=== PATIENT | female | born 1995 | race Caucasian/White ===

== ENCOUNTER → 2020-01-14 | Outpatient (CLI) | payer BC ==
[2020-01-14 13:00] LABS: BASO # 0.1 10^3/uL (0.0-0.2); BASO % 0.7 % (0.0-1.0); EOS # 0.3 10^3/uL (0.0-0.5); EOS % 2.5 % (0.0-3.0); HEMATOCRIT 42.2 % (36.0-47.0); HEMOGLOBIN 13.5 g/dl (12.0-15.5); LYMPH # 2.6 10^3/uL (1.5-5.0); LYMPH % 21.5 % (24.0-44.0); MEAN CORPUSCULAR HEMOGLOBIN 28.1 pg (27.0-33.0); MEAN CORPUSCULAR VOLUME 87.9 fl (80.0-96.0); MONO # 0.6 10^3/uL (0.0-0.8); MONO % 5.1 % (0.0-5.0); NEUTROPHILS # 8.3 10^3/uL (1.5-8.5); NEUTROPHILS % 69.9 % (36.0-66.0); PLATELET COUNT, AUTOMATED 307 10^3/uL (150-450); WHITE BLOOD COUNT 11.9 10^3/uL (4.0-10.0)
[2020-01-14 14:10] LABS: ALBUMIN 4.2 GM/DL (3.2-5.2); ALT/SGPT 29 U/L (12-78); BILIRUBIN,TOTAL 0.3 MG/DL (0.2-1.0); BLOOD UREA NITROGEN 12 MG/DL (7-18); CALCIUM LEVEL 9.1 MG/DL (8.5-10.1); CARBON DIOXIDE LEVEL 30 MEQ/L (21-32); CHLORIDE LEVEL 105 MEQ/L (98-107); CREATININE FOR GFR 0.66 MG/DL (0.55-1.30); GLOMERULAR FILTRATION RATE > 60.0 (>60); GLUCOSE, FASTING 68 MG/DL (70-100); LIPASE 55 U/L (73-393); POTASSIUM SERUM 4.6 MEQ/L (3.5-5.1); SODIUM LEVEL 139 MEQ/L (136-145); TOTAL PROTEIN 7.1 GM/DL (6.4-8.2)
== END ==
LOC: M WUC 10:06
PROVIDERS: ATTEND Physician Assistant
DX: R10.84 Generalized abdominal pain (principal)

== ENCOUNTER → 2020-09-02 | Outpatient (REF) | payer OTHER | LOC: M LAB REF 15:14 | PROVIDERS: ATTEND Family Medicine | DX: T74.21XA Adult sexual abuse, confirmed, initial encounter (principal) ==

== ENCOUNTER 2020-10-27 08:02 | Emergency (ER) | payer OTHER ==
[~2020-10-27] VITALS: Ht 170.2 cm; Wt 109.3 kg
[2020-10-27] MEDS ORDERED: ATIV1TAB10 (08:09)
[2020-10-27] MEDS ORDERED: LAMO100T3 (08:09)
[2020-10-27] MEDS ORDERED: TRAZ-257 (08:09)
[2020-10-27] MEDS ORDERED: VIIB20TA (08:09)
[2020-10-27 09:24] LABS: BASO # 0.1 10^3/uL (0.0-0.2); BASO % 0.7 % (0.0-1.0); EOS # 0.4 10^3/uL (0.0-0.5); EOS % 3.4 % (0.0-3.0); HEMOGLOBIN 12.7 g/dl (12.0-15.5); LYMPH # 1.7 10^3/uL (1.5-5.0); LYMPH % 16.8 % (24.0-44.0); MEAN CORPUSCULAR HEMOGLOBIN 27.5 pg (27.0-33.0); MEAN CORPUSCULAR HGB CONC 31.8 g/dl (32.0-36.5); MEAN CORPUSCULAR VOLUME 86.8 fl (80.0-96.0); MONO # 0.7 10^3/uL (0.0-0.8); MONO % 6.7 % (2.0-8.0); NEUTROPHILS # 7.4 10^3/uL (1.5-8.5); NEUTROPHILS % 71.7 % (36.0-66.0); PLATELET COUNT, AUTOMATED 297 10^3/uL (150-450); RED BLOOD COUNT 4.61 10^6/uL (4.00-5.40); WHITE BLOOD COUNT 10.4 10^3/uL (4.0-10.0)
--- NOTE | 2020-10-27 09:40 | REP ---
INDICATION: pelvic pain COMPARISON: None. TECHNIQUE: Transabdominal pelvic ultrasound followed by transvaginal examination for better evaluation of the endometrium and adnexa with color Doppler evaluation of the ovaries. FINDINGS: Bladder is unremarkable and measures 5.4 x 3.6 x 2.9 cm. Normal anteverted uterus measures 8.0 x 3.9 x 4.5 cm. The endometrial complex measures 9 mm thickness. No discrete uterine or endometrial abnormalities are appreciated. Bilateral ovaries are normal in vascularity without evidence for torsion. Right ovary measures 3.8 x 3.1 x 2.1 cm and includes multiple follicles along with 1.5 x 1.7 x 1.9 cm complex presumed involuting hemorrhagic cyst and 1.6 x 0.8 x 1.4 cm dominant follicle; R I = 0.50. Left ovary measures 2.4 x 1.9 x 1.3; R I = 0.69. No obvious pelvic fluid. IMPRESSION: Normal uterus and left ovary. Presumed physiologic changes to the right ovary. <Electronically signed by Jersey Negrete > 10/27/20 0936
[2020-10-27 09:47] LABS: ALBUMIN 3.9 GM/DL (3.2-5.2); ALT/SGPT 25 U/L (12-78); BILIRUBIN,DIRECT < 0.1 MG/DL (0.0-0.2); BILIRUBIN,TOTAL 0.3 MG/DL (0.2-1.0); LIPASE 47 U/L (73-393); TOTAL PROTEIN 7.3 GM/DL (6.4-8.2)
[2020-10-27] MEDS ORDERED: FLUCONAZOLE 50MG TABLET PO ONE (11:15)
[2020-10-27] MEDS ORDERED: FLAG500T PO (11:22)
[2020-10-27 11:41] VITALS: BP 136/77
[2020-10-27 12:53] LABS: CHLAMYDIA DNA AMPLIFICATION NEGATIVE (NEGATIVE); GC DNA AMPLIFICATION NEGATIVE (NEGATIVE)
== END 2020-10-27 11:43 | disposition home or self-care (01) ==
LOC: M ED 08:02
DX: N83.201 Unspecified ovarian cyst, right side (principal); N76.0 Acute vaginitis; B37.3 Candidiasis of vulva and vagina; Z88.0 Allergy status to penicillin; F12.20 Cannabis dependence, uncomplicated

== ENCOUNTER → 2020-12-28 | Outpatient (CLI) | payer OTHER ==
[~2020-12-28] MED LIST: ATIV1TAB10; FLAG500T PO; LAMO100T3; TRAZ-257; VIIB20TA
--- NOTE | 2020-12-28 10:00 | REP ---
INDICATION: LUMBAGO WITH SCIATICA. COMPARISON: None TECHNIQUE: Multiple views of the lumbosacral spine. Eight views with flexion and extension bending views FINDINGS: Multiple views of the lumbosacral spine show no acute fracture, dislocation, or subluxation. The intervertebral disc spaces are symmetric and well maintained. There is no spondylolysis or spondylolisthesis. The pedicles are intact bilaterally and there is no destructive osseous lesion. Flexion and extension bending views show no evidence of instability IMPRESSION: Essentially unremarkable lumbosacral spine series. <Electronically signed by Mj Powell > 12/28/20 0954
== END ==
LOC: M WUC 09:17
PROVIDERS: ATTEND Physician Assistant
DX: M54.41 Lumbago with sciatica, right side (principal)

== ENCOUNTER 2021-01-16 05:54 | Emergency (ER) | payer OTHER ==
[~2021-01-16] VITALS: Ht 162.6 cm; Wt 100.0 kg
[2021-01-16 05:55] VITALS: BP 139/90
[2021-01-16] MEDS ORDERED: TRI-1TAB PO (06:08)
[2021-01-16] MEDS ORDERED: ATOM40CA9 PO (06:08)
[2021-01-16] MEDS ORDERED: VIIB40TA PO (06:08)
[2021-01-16] MEDS ORDERED: CYCL-707 PO (06:08)
[2021-01-16] MEDS ORDERED: PRED20TA PO (06:08)
[2021-01-16] MEDS ORDERED: TIZA4CAP PO (06:08)
[2021-01-16] MEDS ORDERED: NEUR300C PO (07:20)
== END 2021-01-16 07:42 | disposition home or self-care (01) ==
LOC: M ED 05:54
DX: M54.41 Lumbago with sciatica, right side (principal); F33.9 Major depressive disorder, recurrent, unspecified; F41.9 Anxiety disorder, unspecified; Z98.84 Bariatric surgery status; Z79.899 Other long term (current) drug therapy; Z79.3 Long term (current) use of hormonal contraceptives; Z88.0 Allergy status to penicillin; F12.20 Cannabis dependence, uncomplicated

== ENCOUNTER → 2021-01-24 | Outpatient (CLI) | payer OTHER ==
[~2021-01-24] MED LIST changes: +ATOM40CA9 PO; +CYCL-707 PO; +GASTROGRAFIN SOLUTION 30ML (Q9963) As Ordered ONE; +ISOVUE-370 76% 100ML VIAL As Ordered ONE; +NEUR300C PO; +PRED20TA PO; +TIZA4CAP PO; +TRI-1TAB PO; +VIIB40TA PO
--- NOTE | 2021-01-24 11:24 | REP ---
INDICATION: EPIGASTRIC PAIN, GASTRIC SLEEVE, VOMITING. COMPARISON: None. TECHNIQUE: Oral Gastrografin mixture per our bowel contrast protocol and bolus 100 mL Isovue 370 with scanning through the abdomen and pelvis and both coronal and sagittal reconstructions provided FINDINGS: CT abdomen: The lung bases are clear. The heart is not enlarged. There is no pericardial thickening or effusion. Surgical staple lines in the stomach in the left upper quadrant. Oral contrast within the stomach and into small bowel loops reaching the right colon. No definite hiatal hernia. Liver mildly enlarged up to 19 cm vertical diameter midclavicular line. No focal hepatic mass or biliary dilatation. There is no adjacent ascites. The visualized gallbladder is without calcified stone or mass. Spleen has maximum diameter of 12.5 cm, not enlarged without focal lesion. Pancreas without ductal dilatation or calcification the common duct. No inflammatory changes in the peripancreatic fat, pancreatic mass or adjacent fluid collection. Abdominal aorta without aneurysm. There is no periaortic, other retroperitoneal or mesenteric pathologic sized lymphadenopathy. Contrast filled small bowel loops without dilatation, wall thickening air-fluid levels or adjacent mesenteric edema. Lung window review shows no sign of perforation or free air. Colon shows stool and gas scattered in the right knee and transverse portions. The left colon is collapsed without signs of colitis or diverticulitis anywhere in the abdomen. The bone windows show spine and visualized ribs intact. CT pelvis: The bony sacrum, pelvis and hips are without acute finding. There are a few bone islands in the right hip as a benign finding. Distal left colon, sigmoid and rectum without acute finding. Small bowel loops in the pelvis were unremarkable. Few scattered mesenteric nodes adjacent to the right colon and cecum but no inflammatory changes in the fat. Appendix is seen and unremarkable. Uterus anteverted not enlarged. Left ovary slightly larger than the right. No pelvic free fluid or adenopathy. No ventral or inguinal hernia. IMPRESSION: 1. Status post gastric surgery, by history a gastric sleeve operation and without sign of obstruction. The anastomotic sutures are noted and contrast is seen throughout nondilated small bowel loops into the right colon. No abnormal distension of the stomach. 2. There is no ascites, pathologic sized adenopathy, colitis, diverticulitis, appendicitis or other acute finding. The solid organs in the upper abdomen showed only mild hepatomegaly with fatty infiltration. 3. Uterus anteverted, tilted towards the right with asymmetrically slightly larger right than the left ovary no gross mass. No abdominal or pelvic ascites, perforation or free air. <Electronically signed by Henok Yanez > 01/24/21 2437
== END ==
LOC: M RAD 09:10
PROVIDERS: ATTEND Physician Assistant
DX: R10.13 Epigastric pain (principal); Z98.84 Bariatric surgery status; R16.0 Hepatomegaly, not elsewhere classified; K76.0 Fatty (change of) liver, not elsewhere classified; N85.4 Malposition of uterus
CPT/HCPCS: 74177; Q9963; Q9967

== ENCOUNTER → 2021-01-30 | Outpatient (CLI) | payer OTHER ==
[~2021-01-30] MED LIST changes: -GASTROGRAFIN SOLUTION 30ML (Q9963) As Ordered ONE; -ISOVUE-370 76% 100ML VIAL As Ordered ONE
== END ==
LOC: M LABSMTC 09:01
PROVIDERS: ATTEND Orthopaedic Surgery
DX: Z01.812 Encounter for preprocedural laboratory examination (principal); M51.36 Other intervertebral disc degeneration, lumbar region; M21.371 Foot drop, right foot

== ENCOUNTER 2021-04-24 12:30 | Emergency (ER) | payer OTHER ==
[~2021-04-24] VITALS: Ht 170.2 cm; Wt 97.5 kg
[2021-04-24 12:30] VITALS: BP 137/83
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
--- OUTSIDE RECORDS SUMMARY | 2021-04-24 12:38 | CCD | Continuity of Care Document ---
Author Shahana Miller Organization [place] [address] Phone [phone] Care Team Providers Care Director Of Software Development Name Role Phone Dea Thomas D.O. AUTM [phone] Deejay Kumar AUTM Physical Therapy, [facility] AUTM [phone] [facility] AUTM [phone] Esthela Herrera DO AUTM [phone] Problems Active Problems Provider Date Pure hypercholesterolemia [...] SIG Qnty Indications Ordering Provide r Date Lamictal 200mg Tablets F31.9 Dea Thomas D.O. 04/12/2021 Ketoconazole 2% Cream apply to flakey rash on right breast twice daily until rash resolves (usually 4 weeks) 60gm B35.4 Lio AshOValery 02/27/2021 Tizanidine HCL 4mg Capsules take one capsule by mouth every 8 hours as needed for muscle spasm 45caps M5 4.5 Lio AshOValery 12/29/2020 Tramadol HCL 50mg Tablets take one tablet by mouth every 6 hours for pain 28tabs M54.5 Lio GriffithsOValery 12/29/2020 Dxa-Jn-Djynrzvgb 0.1 8/0.215/0.25 mg-25 mcg Tablets 1 by mouth every day 84tabs Z01.411 Lio AshOValery 09/02/2020 Dicyclomine HCL 10mg Capsules take one tablet every 8 hours by mouth as needed for diarrhea. 60caps K58.0 Lio AshOValery 08/10/2020 Viibryd 20mg Tablets 2 by mouth once daily 60tabs Lio AshO. Trazodone HCL 100mg Tablets take 1 by mouth every night at bedtime 90tabs Lio HilliardO. Guanfacine HCL 2mg Tablets Unknown Lorazepam 1mg Tablets take 1 tablet by mouth daily Unknown History Medications Ativan 0.5mg Tablets 1 tab by mouth 15 minutes prior to procedure and repeat 1 time during day if needed 2tabs Lio AshO. 02/02/2021 - 02/27/2021 Prednisone 20mg Tablets take two tablets once a day by mouth for five days 10tabs M54.5 Lio RandleOValery 12/29/2020 - 01/24/2021 Lamotrigine Starter Kit-[place] 42X 25 mg & 7 X 100 mg Kit Take as Directed; Maximum Daily Dose Is 100 MG 49units F 31.9 Lio AshOValery 10/17/2020 - 04/12/2021 Lamictal 100mg Tablets Take one tablet by mouth once a day 90tabs F31.9 Dea Thomas D.O. 03/2021 - 10/17/2020 Immunizations Description No Information Available Vital Signs Date Vital Result Comment 04/12/2021 2:01pm BP Systolic 118 mmHg BP Diastolic 70 mmHg Height 66.7 inches 5'6.70" Weight 216.38 lb BMI (Body Mass Index) 34.2 kg/m2 Heart Rate 90 /min Respiratory Rate 18 /min Body Temperature 98.9 F O2 % BldC Oximetry 98 % [place] Body Weight 130 lb 02/27/2021 9:42am BP Systolic 114 mmHg BP Diastolic 72 mmHg Height 66.7 inches 5'6.70" Weight 224.38 lb BMI (Body Mass Index) 35.5 kg/m2 Heart Rate 101 /min Respiratory Rate 18 /min Body Temperature 98.5 F O2 % BldC Oximetry 99 % [place] Body Weight 130 lb Results Test Acquired Date Facility Test Result H/L Range Note Coronavirus 2019 Nasopharygeal 01/30/2021 [facility] Outpa tient Testing (Registration) [address] [place] [address] [phone] Coronavirus 2019 Nasopharygeal ASSAY INFORMATIO <SEE N OTE> 1 Wet [place] Trichomonas 10/27/2020 [facility] Outpatient Paige ting (Registration) [address] [place] [address] [phone] Wet Prep Reference Interv <SEE NOTE> 2 Laboratory test finding 10/27/2020 [facility] Outpatient T esting (Registration) [address] [place], [place] [address] [phone] iSTAT B-hCG < 5.0 Normal 3 Istat Chem8+ Panel 10/27/2020 [facility] Outpatient Testi ng (Registration) [address] [place], [place] [address] [phone] iSTAT HCT 41.0 % Normal 38.0-51.0 iSTAT Glucose 94 mg/dL Normal 70-105 iSTAT Sodium 138 mEq/L Normal 136-145 iSTAT Potassium 4.4 mEq/L Normal 3.5-5.1 iSTAT CA++ 4.8 mg/dL Normal 4.5-5.3 iSTAT Chloride 101 mEq/L Normal 98-109 iSTAT Co2 28.0 MM/L High 23.0-27.0 iSTAT BUN 13 mg/dL Normal 8-26 iSTAT Creatinine 0.7 mg/dL Normal 0.6-1.3 CBC With Differential 10/27/2020 [facility] Outpatient Paige ting (Registration) [address] [place] [address] [phone] White Blood Count 10.4 10 High 4.0-10.0 [...] 36.0-66.0 Lymph % 16.8 % Low 24.0-44.0 [place] % 6.7 % Normal 2.0-8.0 Eos % 3.4 % High 0.0-3.0 Baso % 0.7 % Normal 0.0-1.0 Immature Granulocyte % 0.7 % Normal 0-3.0 Nucleated Red Blood Cell % 0.0 % Normal 0-0 Neutrophils # 7.4 10 Normal 1.5-8.5 Lymph # 1.7 10 Normal 1.5-5.0 Sawyer # 0.7 10 Normal 0.0-0.8 Eos # 0.4 10 Normal 0.0-0.5 Baso # 0.1 10 Normal 0.0-0.2 Ua W/ Reflex To Culture 10/27/2020 [facility] Outpatient T esting (Registration) [address] [place] [address] [phone] Appearance, Urine RFX CLOUDY High Clear Color, Urine RFX YELLOW Normal Yellow PH,Urine RFX 7.0 units Normal 5.0-9.0 Specific [place] Ur Auto RFX 1.026 Normal 1.002-1.035 Protein, [...] Urine Auto RFX 0 /LPF Normal 0-1 Liver Profile 10/27/2020 [facility] Outpatient Testi ng (Registration) [address] [place], [place] [address] [phone] Ast/Sgot 12 U/L Normal 7-37 Alt/SGPT 25 U/L Normal 12-78 Alkaline Phosphatase 79 U/L Normal 45-117 Bilirubin,Total 0.3 mg/dL Normal 0.2-1.0 Bilirubin,Direct < 0.1 mg/dL Normal 0.0-0.2 Total Protein 7.3 GM/DL Normal 6.4-8.2 Albumin 3.9 GM/DL Normal 3.2-5.2 Albumin/Globulin Ratio 1.1 Low 1.2-2.2 Laboratory test finding 10/27/2020 [facility] Outpatient T esting (Registration) [address] [place] [address] [phone] Lipase 47 U/L Low 73-393 Chlamydia, GC & Trich Amp 10/27/2020 [facility] Outpatient Testing (Registration) [address] [place] [address] [phone] Chlamydia Dna Amplification NEGATIVE Normal Nega tive 4 GC Dna Amplification NEGATIVE Normal Negative 5 Trichomonas vaginalis (Amp) NOT DETECTED Normal Negative 6 1 ASSAY INFORMATION: Real Time RT-PCR NOTE: The COVID-19 assay has been cleared by the U.S. Food and Drug Administration under the Emergency Use Authorization (EUA). [facility] and [employer] are designated as high complexity laboratories by the Clinical Laboratory Improvement Amendments of 1988(CLIA) and are qualified to perform this test. Not Detected 2 Reference Interval: Negative for Clue Cells, Trichomonas vaginalis or Yeast like organisms. WET PREP RESULT FEW EPITHELIAL CELLS PRESENT FEW WBC MODERATE RBC FEW LONG RODS PRESENT FEW SHORT RODS PRESENT FEW CLUE CELLS PRESENT 3 QUANTITATIVE RESULT QUALITATIVE INTERPRETATION <5.0 IU/L NEGATIVE 5.0 - 25.0 IU/L INDETER MINATE >25.0 IU/L POSITIVE 4 A negative test result does not [...] be below the sensitivity of the test. 6 A negative test result does not exclude the possibility of infection because test results may be affected by improper specimen collection, technical error, sample mix-up, or because the number of organisms in the sample is below the limit of detection of the test. Procedures Date Code Description Status 04/12/2021 31463 Office/Outpatient Established Lo w MDM 20-29 Min Completed 02/27/2021 89587 Office/Outpatient Established Lo w MDM 20-29 Min Completed 01/24/2021 92944 Office/Outpatient Established Mo d MDM 30-39 Min Completed 12/29/2020 06738 Office/Outpatient Established Lo w MDM 20-29 Min Completed 10/14/2020 78028 Office/Outpatient Established Mo d MDM 30-39 Min Completed Medical Devices Description No Information Available Encounters Type Date Location Provider Dx Diagnosis Office Visit 04/12/2021 1:45p Family [facility] WILLIAM Morales L98.7 Excessive and redundant skin and subcutaneous tissue Z98.84 Bariatric surgery status Office Visit 02/27/2021 9:40a Family [facility] Dea Thomas D.O. B35.4 Tinea corporis Office Visit 01/24/2021 8:00a [facility] WILLIAM Morales Z98.84 Bariatric surgery status R11.10 Vomiting, unspecified R10.13 Epigastric pain Office Visit 12/29/2020 2:40p [facility] WILLIAM Morales M54.5 Low back pain Office Visit 10/14/2020 8:00a [facility] WILLIAM Morales F31.9 Bipolar disorder, unspecifie d Z98.84 Bariatric surgery status E28.2 Polycystic ovarian syndrome F43.10 Post-traumatic stress disord er, unspecified Assessments Date Code Description Provider 04/12/2021 L98.7 Excessive and redundant skin and subcutaneous tissue WILLIAM Morales 04/12/2021 Z98.84 Bariatric surgery status WILLIAM Morales 02/27/2021 B35.4 Tinea corporis Dea villeda D.O. 01/24/2021 Z98.84 Bariatric surgery status WILLIAM Morales 01/24/2021 R11.10 Vomiting, unspecified WILLIAM Martinez 01/24/2021 R10.13 Epigastric pain WILLIAM Morales 12/29/2020 M54.5 Low back pain WILLIAM Morales 10/14/2020 F31.9 Bipolar disorder, unspecified [place] WILLIAM Virk 10/14/2020 Z98.84 Bariatric surgery status WILLIAM Morales 10/14/2020 E28.2 Polycystic ovarian syndrome Mark WILLIAM Verdugo 10/14/2020 F43.10 Post-traumatic stress disorder, unspecified WILLIAM Morales Plan of Treatment Future Appointment(s):* 09/06/2021 9:40 am - Dea Thomas D.O. at [facility] 04/12/2021 - WILLIAM Morales* L98.7 Excessive and redundant skin and subcutaneous tissue* Comments:* Referral placed for Dr. Herrera to discuss a possible tummy tuck surgery. * Referral:* Esthela Herrera DO, * Z98.84 Bariatric surgery status Functional Status Description No Information Available Mental Status Description No Information Available Referrals Refer to Reason for Referral Status Appt Date Esthela Herrera DO Shahana had a gastric bypass 12/17/18 and has excessive redundant abdominal fold/skin which she is interested in getting removed. She has diastasis recti muscle dysfunction. Sent [address] [place] [address] [phone] Kamaljit Tan MD Shahana had a gastric sleeve placed while living in [place] in December 2018. She recently developed problems with vomiting and inability to tolerate solid food intake. [facility] 809 [phone] [facility] Shahana for the past three w eeks has been having lower back and pelvis pain with pain down both LE without weakness or trauma to affected area. MRI several years ago showed bulging discs. Recent xray was normal. please evaluate for lower back pain which radiates down LE, right worse then left. [facility] [address] [place], [place] [address] [phone]
--- OUTSIDE RECORDS SUMMARY | 2021-04-24 12:38 | CCD | Continuity of Care Document ---
Author Author Shahana CHADWICK MD Organization Unknown Address [address] [address] Phone [phone] Care Team Providers Care Investment Counselor Name Role Phone Kermit Costa MD AUTM Unavailable Denis Ray AUTM [phone] Problems Description No Information Available Social History Type Date Description Comments Sex Unknown Allergies, Adverse Reactions, Alerts Active Allergies Criticality Reaction | Severity Comments Date Penicillin V Unable to assess criticality 01/20/2021 Medications Active Medications SIG Qnty Indications Ordering Provide r Date Oxycodone-Acetaminophen 5-325mg Ta blets 1- 2 tabs po q4-6h prn / post surgical pain (please do not fill until 02/03) 20tabs Adria Chadwick MD 01/25/2021 Mupirocin 2% Ointment apply a pea sized amount to the nasal passages 3 times a day for 5 days prior to surgery 22gm Adria Chadwick MD 01/20/2021 Hibiclens 4% Liquid use in shower once daily for 5 days before surgery 1units Adria Chadwick MD 01/20/2021 Tizanidine HCL 4mg Tablets 1 by mouth three times a day 90tabs Francis Proctor MD 01/16/2021 Gabapentin 300mg Capsules 1 tab po qhs for one week, then one tab po bid for one week then one tab po tid Unknown Immunizations Description No Information Available Vital Signs Date Vital Result Comment 02/16/2021 3:26pm Body Temperature 96.9 F 01/20/2021 2:44pm Body Temperature 97.3 F Height 67 inches 5'7" Weight 228.25 lb BMI (Body Mass Index) 35.7 kg/m2 Results Test Acquired Date Facility Test Result H/L Range Note Laboratory test finding 01/30/2021 [facility] [address] [place] [address] [phone] Coronavirus 2019 Nasopharygeal ASSAY INFORMATIO <SEE NOTE> 1 1 ASSAY INFORMATION: Real Time RT-PCR NOTE: The COVID-19 assay has been cleared by the U.S. Food and Drug Administration under the Emergency Use Authorization (EUA). [employer] [facility] [employer] are designated as high complexity laboratories by the Clinical Laboratory Improvement Amendments of 1988(CLIA) and are qualified to perform this test. Not Detected Procedures Date Code Description Status 02/03/2021 89081 Laminectomy One Interspace, Lumb ar Completed 02/03/2021 78381 Laminectomy One Interspace, Lumb ar Completed 01/20/2021 09705 Office/Outpatient Established Mo d MDM 30-39 Min Completed 01/16/2021 93871 Office/Outpatient New Moderate M DM 45-59 Minutes Completed Medical Devices Description No Information Available Encounters Type Date Location Provider Dx Diagnosis Office Visit 02/16/2021 3:30p Weldsandy Chadwick MD Z47.89 Encounter for other orthopedic aftercare Office Visit 01/20/2021 2:45p Weldsandy Chadwick MD M51.26 Other intervertebral disc displacement, lumbar region M48.061 Spinal stenosis, lumbar marva on without neurogenic austin M54.16 Radiculopathy, lumbar region Office Visit 01/16/2021 8:45a Weldsandy Umaña, P.A. M51.36 Other intervertebral disc degeneration, lumbar region M21.371 Foot drop, right foot Assessments Date Code Description Provider 04/11/2021 Z47.89 Encounter for other orthopedic a ftercare Adria Chadwick MD 02/16/2021 Z47.89 Encounter for other orthopedic a ftgracielaare Adria Chadwick MD 02/03/2021 M51.17 Intervertebral disc disorders with radiculopathy, lumbosacral region Denis Umaña, P.AValery 02/03/2021 M51.17 Intervertebral disc disorders with radiculopathy, lumbosacral region Adria Chadwick MD 01/20/2021 M51.26 Other intervertebral disc displa cement, lumbar region Adria Chadwick MD 01/20/2021 M48.061 Spinal stenosis, lum bar region without neurogenic claudication Adria Chadwick MD 01/20/2021 M54.16 Radiculopathy, lumbar region Bru dean Chadwick MD 01/16/2021 M51.36 Other intervertebral disc degene ration, lumbar region Denis Umaña, P.A. 01/16/2021 M21.371 Foot drop, right foot Denis Umaña, PJoselin. Plan of Treatment 04/11/2021 - Adria Chadwick MD* Z47.89 Encounter for other orthopedic aftercare * Follow up:* back recheck in 3 months with [facility] Functional Status Description No Information Available Mental Status Description No Information Available Referrals Refer to Dr Reason for Referral Status Appt Date Adria Chadwick MD SURGERY NO AUTH REQUIRED FOR LS-SPINE SURGERY ([id number]) TO SURGERY NT Created [address] [place] [address], [address] [place] [address] [phone] Denis Umaña PA MRI NO AUTH REQUIRED FOR MRI OF LUMBAR SPINE ([id number]) TO TRIAGE. DG Created [address] [place] [address] [phone] Denis Umaña PA PT BASED ON MED. [facility] TO PT DEPT. NT C reated [address] [place] [address] [phone]
--- OUTSIDE RECORDS SUMMARY | 2021-04-24 12:38 | CCD | Summary of Care ---
Author Author [facility] Organization [facility] Address Unknown Phone Unavailable Care Team Providers Care Culture Manager Name Role Phone PCP Unavailable Reason for Visit * Reason Comments ADHD Encounter Details Care Team Description Date Type Department Jacqui George NP [address] [place] [phone] ADHD (attention deficit hyperactivity di sorder), inattentive type (Primary Dx); Panic disorder 03/16/2021 [facility] Psychiatry [facility], [address] [address] Allergies Not on Filedocumented as of this encounter (statuses as of 03/20/2021) Medications End Date Status Medication Sig Dispensed Refills Start Date 03/31/2021 Active Prazosin HCl 1 MG Oral Take 1 30 capsule 0 Capsule capsule by 1 (MINIPRESS)Indications: mouth nightly Nightmare Active lamoTRIgine 100 MG Oral Take 100 mg 0 Tablet (LaMICtal) by mouth daily Active Vilazodone HCl 40 MG Oral Take 40 mg by 0 Tablet (VIIBRYD) mouth daily Active traZODone HCl 100 MG Oral Take 100 mg 0 Tablet (DESYREL) by mouth nightly 04/14/2021 Active guanFACINE HCl 1 MG Oral Take 1 tablet 30 tablet 0 Tablet by mouth 1 (TENEX)Indications: ADHD nightly (attention deficit hyperactivity disorder), inattentive type 03/30/2021 Active LORazepam 0.5 MG Oral Take 1 tablet 15 tablet 0 Tablet by mouth 1 (Ativan)Indications: daily as Panic disorder needed for Anxiety (panic attacks), Max Daily Dose: 0.5 mg 03/15/2021 Discontinued (Reorder) LORazepam 0.5 MG Oral Take 1 tablet 15 tablet 0 Tablet by mouth 1 (Ativan)Indications: daily as Panic disorder needed for Anxiety (panic attacks), Max Daily Dose: 0.5 mg 03/15/2021 Discontinued (Not effective) Atomoxetine HCl 40 MG Take 40 mg by 0 Oral Capsule (STRATTERA) mouth daily documented as of this encounter (statuses as of 03/20/2021) Active Problems Problem Noted Date Back injury 03/01/2021 documented as of this encounter (statuses as of 03/20/2021) Social History Date Tobacco Use Types Packs/Day Years Used Never Assessed Sex Assigned at Date Recorded Not on file documented as of this encounter Last Filed Vital Signs Not on filedocumented in this encounter Patient Instructions * Patient Instructions* Jacqui George NP - 03/15/2021 5:00 PM EDT Come back documented in this encounter Plan of Treatment Care Team Description Date Type Specialty Jacqui George NP [address] [place] [address] 03/29/2021 Telemedicine Psychiatry Health Maintenance Due Date Last Done Comments MMR Vaccines (1 of - 1997 Standard series) Varicella Vaccines (1 of 1997 2 - 2-dose childhood series) DTaP,Tdap,and Td Vaccines 12/17/2003 (1 - Tdap) HPV Vaccines (1 - 2-dose 12/17/2007 series) HIV Screening 2009 Chlamydia Screening 2012 Cervical Cancer Screening 2017 3 years Influenza Vaccine 04/07/2021 Pneumococcal Vaccine: 65+ 2061 Years (1 of - PPSV23) HIB Vaccines Aged Out No longer eligible based on patient's age to complete this topic Hepatitis A Vaccines Aged Out No longer eligibl e based on patient's age to complete this topic Hepatitis B Vaccines Aged Out No longer eligibl e based on patient's age to complete this topic IPV Vaccines Aged Out No longer eligible based on patient's age to complete this topic Pneumococcal Vaccine: Aged Out No longer eligib le based on patient's age to Pediatrics (0 to 5 Years) complete this topic and At-Risk Patients (6 to 64 Years) documented as of this encounter Results Not on filedocumented in this encounter Visit Diagnoses Diagnosis ADHD (attention deficit hyperactivity d isorder), inattentive type - Primary Attention deficit disorder without ment ion of hyperactivity Panic disorder Panic disorder without agoraphobia documented in this encounter
--- OUTSIDE RECORDS SUMMARY | 2021-04-24 12:38 | CCD | Summary of Care ---
Author Author [facility] Organization [facility] Address Unknown Phone Unavailable Care Team Providers Care Computer Support Specialist Instructor Name Role Phone PCP Unavailable Reason for Visit * Reason Comments Manic Behavior Encounter Details Care Team Description Date Type Department Jacqui George NP [address] [place] [address] Bipolar depression (Primary Dx); Panic disorder; Nightmare 03/02/2021 [facility] Psychiatry [facility], [facility]. [address] [place] [address] Allergies Not on Filedocumented as of this encounter (statuses as of 03/08/2021) Medications End Date Status Medication Sig Dispensed Refills Start Date 03/16/2021 Active LORazepam 0.5 MG Oral Take 1 tablet 15 tablet 0 Tablet by mouth 1 (Ativan)Indications: daily as Panic disorder needed for Anxiety (panic attacks), Max Daily Dose: 0.5 mg 03/31/2021 Active Prazosin HCl 1 MG Oral Take 1 30 capsule 0 Capsule capsule by 1 (MINIPRESS)Indications: mouth nightly Nightmare Active lamoTRIgine 100 MG Oral Take 100 mg 0 Tablet (LaMICtal) by mouth daily Active Vilazodone HCl 40 MG Oral Take 40 mg by 0 Tablet (VIIBRYD) mouth daily Active Atomoxetine HCl 40 MG Take 40 mg by 0 Oral Capsule (STRATTERA) mouth daily Active traZODone HCl 100 MG Oral Take 100 mg 0 Tablet (DESYREL) by mouth nightly documented as of this encounter (statuses as of 03/08/2021) Active Problems Problem Noted Date Back injury 03/01/2021 documented as of this encounter (statuses as of 03/08/2021) Social History Date Tobacco Use Types Packs/Day Years Used Never Assessed Sex Assigned at Date Recorded Not on file documented as of this encounter Last Filed Vital Signs Not on filedocumented in this encounter Patient Instructions * Patient Instructions* Jacqui George NP - 03/01/2021 1:30 PM EDT Come back documented in this encounter Plan of Treatment Care Team Description Date Type Specialty Jacqui George NP [address] [place] [phone] 03/15/2021 Telemedicine Psychiatry Health Maintenance Due Date Last [...] filedocumented in this encounter Visit Diagnoses Diagnosis Bipolar depression - Primary Bipolar I disorder, most recent episode (or current) depressed, unspecified Panic disorder Panic disorder without agoraphobia Nightmare Other dysfunctions of sleep stages or a rousal from sleep documented in this encounter
--- OUTSIDE RECORDS SUMMARY | 2021-04-24 12:38 | CCD | Continuity of Care Document ---
Author Author Shahana CHADWICK MD Organization Unknown Address [address] [address] Phone [phone] Care Team Providers Care Exchange Engineer Name Role Phone Kermit Costa MD AUTM Unavailable Denis Ray AUTM [phone] Problems Description No Information Available Social History Type Date Description Comments Sex Unknown Allergies and adverse reactions Active Allergies Criticality Reaction | Severity Comments [...] H/L Range Note Laboratory test finding 01/30/2021 [facility] [address] [place] [address] (802)- - Coronavirus 2019 Nasopharygeal ASSAY INFORMATIO <SEE NOTE> 1 1 ASSAY INFORMATION: Real Time RT-PCR NOTE: The COVID-19 assay has been cleared by the U.S. Food and Drug Administration under the Emergency Use Authorization (EUA). [employer] and [employer] are designated as high complexity laboratories by the Clinical Laboratory Improvement Amendments of 1988(CLIA) and are qualified to perform this test. Not Detected Procedures Date Code Description Status 02/03/2021 23219 Laminectomy One Interspace, Lumb ar Completed 02/03/2021 81691 Laminectomy One Interspace, Lumb ar Completed 01/20/2021 12332 Office/Outpatient Established Mo d MDM 30-39 Min Completed 01/16/2021 75544 Office/Outpatient New Moderate M DM 45-59 Minutes Completed Medical Devices Description No Information Available Encounters Type Date Location Provider Dx Diagnosis Office Visit 04/11/2021 1:45p Freya Chadwick MD Z47.89 Encounter for other orthopedic aftercare Office Visit 02/16/2021 3:30p Freya Chadwick MD Z47.89 Encounter for other orthopedic aftercare Office Visit 01/20/2021 2:45p Freya Chadwick MD M51.26 Other intervertebral disc displacement, lumbar region M48.061 Spinal stenosis, lumbar marva on without neurogenic [place] M54.16 Radiculopathy, lumbar region Office Visit 01/16/2021 8:45a [place] Umaña, P.A. M51.36 Other intervertebral disc degeneration, lumbar region M21.371 Foot drop, right foot Assessments Date Code Description Provider 04/11/2021 Z47.89 Encounter for other orthopedic a ftercare Adria Chadwick MD 02/16/2021 Z47.89 Encounter for other orthopedic a ftercare Adria Chadwick MD 02/03/2021 M51.17 Intervertebral disc disorders with radiculopathy, lumbosacral region Denis Umaña, P.A. 02/03/2021 M51.17 Intervertebral disc disorders with radiculopathy, [...] M21.371 Foot drop, right foot Denis Umaña, PValeryA. Plan of Treatment 04/11/2021 - Adria Chadwick MD* Z47.89 Encounter for other orthopedic aftercare * Follow up:* back recheck in 3 months with BLB Functional Status Description No Information Available Mental Status Description No Information Available Referrals Refer to Dr Reason for Referral Status Appt Date Adria Chadwick MD SURGERY NO AUTH REQUIRED FOR LS-SPINE SURGERY (62536) TO SURGERY NT Created [address] [place] [address], [address] [place] [address] [phone] Denis Umaña PA MRI NO AUTH REQUIRED FOR MRI OF LUMBAR SPINE ([id number]) TO TRIAGE. DG Created [address] [place] [address] [phone] Denis Umaña PA PT BASED ON MED. [facility] TO PT DEPT. NT C reated [address] [place] [address] [phone]
--- OUTSIDE RECORDS SUMMARY | 2021-04-24 12:38 | CCD | Continuity of Care Document ---
Author Author Shahana CHADWICK MD Organization Unknown Address [address] [address] Phone [phone] Care Team Providers Care Extras Casting Director Name Role Phone Kermit Csota MD AUTM Unavailable Denis Ray AUTM [phone] Problems Description No Information Available Social History Type Date Description Comments Sex Unknown Allergies, Adverse Reactions, Alerts Active Allergies Reaction Severity Comments Date Penicillin V 01/20/2021 Medications Active Medications SIG Qnty Indications [...] Available Vital Signs Date Vital Result Comment 01/20/2021 2:44pm Body Temperature 97.3 F Height 67 inches 5'7" Weight 228.25 lb BMI (Body Mass Index) 35.7 kg/m2 01/16/2021 8:33am Body Temperature 97.5 F Height 67 inches 5'7" Weight 231.25 lb BMI (Body Mass Index) 36.2 kg/m2 Results Test Acquired Date Facility Test Result H/L Range Note Laboratory test finding 01/30/2021 [facility] [address] [place] [address] (315)- - Coronavirus 2019 Nasopharygeal ASSAY INFORMATIO <SEE NOTE> 1 1 ASSAY INFORMATION: Real Time RT-PCR NOTE: The COVID-19 assay has been cleared by the U.S. Food and Drug Administration under the Emergency Use Authorization (EUA). [facility] and [employer] are designated as high complexity laboratories by the Clinical Laboratory Improvement Amendments of 1988(CLIA) and are qualified to perform this test. Not Detected Procedures Date Code Description Status 02/03/2021 65513 Laminectomy One Interspace, Lumb ar Completed 02/03/2021 14177 Laminectomy One Interspace, Lumb ar Completed 01/20/2021 05067 Office/Outpatient Established Mo d MDM 30-39 Min Completed 01/16/2021 00832 Office/Outpatient New Moderate M DM 45-59 Minutes Completed Medical Devices Description No Information Available Encounters Type Date Location Provider Dx Diagnosis Office Visit 01/20/2021 2:45p [facility] Adria Chadwick MD M51.26 Other intervertebral disc displacement, lumbar region M48.061 Spinal stenosis, lumbar marva on without neurogenic austin M54.16 Radiculopathy, lumbar region Office Visit 01/16/2021 8:45a [facility] Denis Umaña, P.A. M51.36 Other intervertebral disc degeneration, lumbar region M21.371 Foot drop, right foot Assessments Date Code Description Provider 02/03/2021 M51.17 Intervertebral disc disorders with radiculopathy, [...] Other intervertebral disc degene ration, lumbar region Dru Powers 01/16/2021 M21.371 Foot drop, right foot Dru Powers Plan of Treatment Future Appointment(s):* 02/16/2021 3:30 pm - Adria Chadwick MD at [facility] 01/20/2021 - Adria Chadwick MD* M51.26 Other intervertebral disc displacement, lumbar region* Follow up:* Pot Op with BLB * M48.061 Spinal stenosis, lumbar region without neurogenic claudication * M54.16 Radiculopathy, lumbar region * All * New Medication:* Mupirocin 2 % - apply a pea sized amount to the nasal passages 3 times a day for 5 days prior to surgery * Hibiclens 4 % - use in shower once daily for 5 days before surgery Functional Status Description No Information Available Mental Status Description No Information Available Referrals Refer to Dr Reason for Referral Status Appt Date Adria Chadwick MD SURGERY NO AUTH REQUIRED FOR LS-SPINE SURGERY (21572) TO SURGERY NT Created [address] [place] [address], [address] [place] [address] [phone] Denis Umaña PA MRI NO AUTH REQUIRED FOR MRI OF LUMBAR SPINE ([id number]) TO TRIAGE. DG Created [address] [place] [address] [phone] Denis Umaña PA PT BASED ON MED. [facility] TO PT DEPT. NT C reated [address] [place] [address] [address] [place] [address] [phone]
--- OUTSIDE RECORDS SUMMARY | 2021-04-24 12:38 | CCD | Continuity of Care Document ---
Author Author Shahana CHADWICK MD Organization Unknown Address [address] [address] Phone [phone] Care Team Providers Care Farm Product Purchaser Name Role Phone Kermit Costa MD AUTM Unavailable Denis Ray AUTM [phone] Problems Description No Information Available Social History [...] H/L Range Note Laboratory test finding 01/30/2021 [facility] [address] [place] [address] (315)- - Coronavirus 2019 Nasopharygeal ASSAY INFORMATIO <SEE NOTE> 1 1 ASSAY INFORMATION: Real Time RT-PCR NOTE: The COVID-19 assay has been cleared by the U.S. Food and Drug Administration under the Emergency Use Authorization (EUA). [employer] and [employer] are designated as high complexity laboratories by the Clinical Laboratory Improvement Amendments of 1988(CLIA) and are qualified to perform this test. Not Detected Procedures Date Code Description Status 01/20/2021 43912 Office/Outpatient Established Mo d MDM 30-39 Min Completed 01/16/2021 18551 Office/Outpatient New Moderate M DM 45-59 Minutes Completed Medical Devices Description No Information Available Encounters Type Date Location Provider Dx Diagnosis Office Visit 01/20/2021 2:45p [facility] Adria Chadwick MD M51.26 Other intervertebral disc displacement, lumbar region M48.061 Spinal stenosis, lumbar marva on without neurogenic austin M54.16 Radiculopathy, lumbar region Office Visit 01/16/2021 8:45a [facility] Denis Umaña, P.A. M51.36 Other intervertebral disc degeneration, lumbar region M21.371 Foot drop, right foot Assessments Date Code Description Provider 01/20/2021 M51.26 Other intervertebral disc displa cement, lumbar region Adria Chadwick MD 01/20/2021 M48.061 Spinal stenosis, lum bar region without neurogenic claudication Adria Chadwick MD 01/20/2021 M54.16 Radiculopathy, lumbar region Wen Chadwick MD 01/16/2021 M51.36 Other intervertebral disc degene ration, lumbar region Denis Umaña, P.A. 01/16/2021 M21.371 Foot drop, right foot Denis Umaña, P.A. Plan of Treatment Future Appointment(s):* 02/16/2021 3:30 pm - Adria Chadwick MD at [facility] 01/20/2021 - Adria Chadwick MD* M51.26 Other [...] SURGERY NO AUTH REQUIRED FOR LS-SPINE SURGERY ([id number]) TO SURGERY NT Created [address] [place] [address], [address] [place] [address] [phone] Denis Umaña PA MRI NO AUTH REQUIRED FOR MRI OF LUMBAR SPINE ([id number]) TO TRIAGE. DG Created [address] [place] [address] [phone] Denis Umaña PA PT BASED ON MED. [facility] TO PT DEPT. NT C reated [address] [place] [address] [phone]
--- OUTSIDE RECORDS SUMMARY | 2021-04-24 12:38 | CCD ---
Author Author [facility] Organization [facility] Address Unknown Phone Unavailable Care Team Providers Care Validation Technician Name Role Phone Shae Magdaleno Unavailable PROBLEMS Type Condition ICD9-CM Code EGL92-CR Code Onset Dates Condition S tatus W/U Status Risk SNOMED Code Notes Problem Unspecified mood [affective] disorder F39 Ac tive confirmed 24173426 Problem Attention deficit hyperactiv ity disorder (ADHD), predominantly inattentive type F90.0 Active confirmed 87164195 Problem Depression, unspecified depression type F32.9 Active confirmed 52138736 Problem Anxiety F41.9 Active confirmed 55976639 ALLERGIES Allergen (clinical drug ingredient) Drug/Non Drug Allergy do cumented on EMR Reaction Allergy Type Onset Date Status Penicillin Hives Non Drug Allergy Active Wellbutrin Hives Non Drug Allergy Active ENCOUNTERS from 1996 to 2021-02-28 Encounter Location Date Provider Diagnosis [address] [address] Feb, Shae Magdaleno IMMUNIZATIONS No Information SOCIAL HISTORY Sex Assigned At : Social History Observation Description Sex Assigned At Unknown REASON FOR REFERRAL No Information VITAL SIGNS No information MEDICATIONS Medication SIG (Take, Route, Frequency, Duration) Notes Start Da te End Date Status Viibryd 10 MG 1 tablet with food Orally Once a day Dec, Active ARIPiprazole 5 MG 1 tablet Orally Once a day for 30 days 2 5 Nov, 2020 Active traZODone HCl 50 MG 1.5-2 tablet at bedtime Orally Once a day Active LaMICtal 100 MG 1 tablet Orally Once a day for 7 days Active Viibryd 20 MG 1 tablet with food Orally Once a day Dec, Active Viibryd 40 MG 1 tablet with food Orally Once a day for 30 day(s) Feb, Active VIIBRYD 40 MG. 1 TABLET BY MOUTH ONCE A DAY for 90 days Active Multivitamin - 1 tablet Orally Once a day Active Atomoxetine HCl 40 MG 1 capsule in the morning Orally Once a day for 7 days Dec, Active Lorazepam 0.5 mg 1 tab Oral once a day Not-Taking PROCEDURES No Information RESULTS No Results REASON FOR VISIT Appt MEDICAL (GENERAL) HISTORY Type Description Date Medical History High Cholesterol Medical History Obesity Medical History Pre Diabetic Medical History Bulging Discs Medical History Sciatica Medical History DDD Surgical History Bariatric Surgery 12/2018 Surgical History [place] Teeth Removal 08/2018 Goals Section No Information Health Concerns No Information MEDICAL EQUIPMENT No Information MENTAL STATUS No Information FUNCTIONAL STATUS No Information ASSESSMENTS No Information PLAN OF TREATMENT Medication Medication Name Sig Start Date Stop Date VIIBRYD 40 MG. 1 TABLET BY MOUTH ONCE A DAY for 90 days Viibryd 10 MG 1 tablet with food Orally Once a day Dec, Viibryd 20 MG 1 tablet with food Orally Once a day Dec, Atomoxetine HCl 40 MG 1 capsule in the morning Orally Once a day for 7 days Dec, Viibryd 40 MG 1 tablet with food Orally Once a day for 30 day( s) Feb, LaMICtal 100 MG 1 tablet Orally Once a day for 7 days traZODone HCl 50 MG 1.5-2 tablet at bedtime Orally Once a day ARIPiprazole 5 MG 1 tablet Orally Once a day for 30 days November, Next Appt Details Provider Name:Shae Magdaleno, 2021-03-07 04:00:00 PM, [address] [place] [address], [phone], Provider Name:Tasha Michel, 03-08 03:20:00 PM, [address] [place] [address], [phone], Provider Name:Shae Magdaleno 2021-03-14 04:00:00 PM, [address] [place] [address], [phone], Provider Name:Shae Magdaleno 2021-03-21 04:00:00 PM, [address] [place] [address], [phone], Provider Name:Shae Magdaleno 2021-03-28 04:00:00 PM, [address] [place] [address], [phone], Provider Name:Shae Magdaleno, 2021-04-04 04:00:00 PM, [address] [place] [address], [phone], Insurance Providers Payer Name Payer Address Payer Phone Insured Name Patient Relati onship to Insured Coverage Start Date Coverage End Date [facility] [employer] [id number] [facility] [id number] Jose Cage
--- OUTSIDE RECORDS SUMMARY | 2021-04-24 12:38 | CCD | Continuity of Care Document ---
Author Author Shahana UMAÑA A P.A. Organization Unknown Address [address] [place] [address], [address] [address] Phone [phone] Care Team Providers Care Hot End Operator Name Role Phone Kermit Costa MD AUTM Unavailable Denis Ray AUTM [phone] Problems Description No Information Available Social History Type Date Description Comments Sex Unknown Allergies, Adverse Reactions, Alerts Active Allergies Reaction Severity Comments Date Penicillin V 01/20/2021 Medications Active Medications SIG Qnty Indications Ordering Provide r Date Oxycodone-Acetaminophen 5-325mg Ta blets 1- 2 tabs po q4-6h prn / post surgical pain (please do not fill until 02/03) 20tabs Adria Ramírez MD 01/25/2021 Mupirocin 2% Ointment apply a pea sized amount to the nasal passages 3 times a day for 5 days prior to surgery 22gm Adria Ramírez MD 01/20/2021 Hibiclens 4% Liquid use in shower once daily for 5 days before surgery 1units Adria Ramírez MD 01/20/2021 Tizanidine HCL 4mg Tablets 1 [...] H/L Range Note Laboratory test finding 01/30/2021 [facility] [address] [place] [address] (315)- - Coronavirus 2019 Nasopharygeal ASSAY INFORMATIO <SEE NOTE> 1 1 ASSAY INFORMATION: Real Time RT-PCR NOTE: The COVID-19 assay has been cleared by the U.S. Food and Drug Administration under the Emergency Use Authorization (EUA). [employer] and [employer] are designated as high complexity laboratories by the Clinical Laboratory Improvement Amendments of 1988(CLIA) and are qualified to perform this test. Not Detected Procedures Date Code Description Status 01/20/2021 06744 Office/Outpatient Established Mo d MDM 30-39 Min Completed 01/16/2021 77546 Office/Outpatient New Moderate M DM 45-59 Minutes Completed Medical Devices Description No Information Available Encounters Type Date Location Provider Dx Diagnosis Office Visit 01/20/2021 2:45p [facility] Adria Ramírez MD M51.36 Other intervertebral disc degeneration, lumbar region M21.371 Foot drop, right foot M51.26 Other intervertebral disc di splacement, lumbar region Office Visit 01/16/2021 8:45a [facility] Denis Umaña, P.A. M51.36 Other intervertebral disc degeneration, lumbar region M21.371 Foot drop, right foot Assessments Date Code Description Provider 01/20/2021 M51.36 Other intervertebral disc degene ration, lumbar region Adria Ramírez MD 01/20/2021 M21.371 Foot drop, right foot Adria moody MD 01/20/2021 M51.26 Other intervertebral disc displa cement, lumbar region Adria Ramírez MD 01/16/2021 M51.36 Other intervertebral disc degene ration, lumbar region Denis Umaña, P.A. 01/16/2021 M21.371 Foot drop, right foot Denis Umaña, P.A. Plan of Treatment Future Appointment(s):* 02/16/2021 3:30 pm - Adria Ramírez MD at [facility] * 02/03/2021 2:30 pm - Dru Powers at [facility] * 02/03/2021 2:30 pm - Adria Ramírez MD at [facility] 01/20/2021 - Adria Ramírez MD* M51.36 Other intervertebral disc degeneration, lumbar region * M21.371 Foot drop, right foot * M51.26 Other intervertebral disc displacement, lumbar region* Follow up:* Pot Op with BLB * All * New Medication:* Mupirocin 2 [...] Reason for Referral Status Appt Date Adria Ramírez MD SURGERY NO AUTH REQUIRED FOR LS-SPINE SURGERY ([id number]) TO SURGERY NT Created [address] [place] [address], [address] [place] [address] [phone] Denis Umaña PA MRI NO AUTH REQUIRED FOR MRI OF LUMBAR SPINE ([id number]) TO TRIAGE. DG Created [address] [place] [address] [phone] Denis Umaña PA PT BASED ON MED. [facility] TO PT DEPT. NT C reated [address] [place] [address] [phone]
--- OUTSIDE RECORDS SUMMARY | 2021-04-24 12:38 | CCD | Continuity of Care Document ---
Author Shahana Miller Organization [place] [address] Phone [phone] Care Team Providers Care Electroencephalograph Technician Name Role Phone Dea Thomas D.O. AUTM Deejay Kumar AUTM [phone] Physical Therapy, [facility] AUTM [phone] [facility] AUTM [phone] Esthela Herrera DO AUTM [phone] Problems Active Problems Provider Date Pure hypercholesterolemia [...] for pain 28tabs M54.5 Lio GriffithsOValery 12/29/2020 Xyt-Xu-Wshkfufhu 0.1 8/0.215/0.25 mg-25 mcg Tablets 1 by [...] Lio RandleOValery 12/29/2020 - 01/24/2021 Lamotrigine Starter Kit-[place] 42X 25 mg & 7 X 100 [...] F O2 % BldC Oximetry 98 % [place] Body Weight 130 lb 02/27/2021 9:42am BP Systolic 114 mmHg BP Diastolic 72 mmHg Height 66.7 inches 5'6.70" Weight 224.38 lb BMI (Body Mass Index) 35.5 kg/m2 Heart Rate 101 /min Respiratory Rate 18 /min Body Temperature 98.5 F O2 % BldC Oximetry 99 % [place] Body Weight 130 lb Results Test Acquired Date Facility Test Result H/L Range Note Coronavirus 2019 Nasopharygeal 01/30/2021 [facility] Outpa tient Testing (Registration) [address] [place] [address] [phone] Coronavirus 2019 Nasopharygeal ASSAY INFORMATIO <SEE N OTE> 1 Wet [place] Trichomonas 10/27/2020 [facility] Outpatient Paige ting (Registration) [address] [place] [address] [phone] Wet Prep Reference Interv <SEE NOTE> 2 Laboratory test finding 10/27/2020 [facility] Outpatient T esting (Registration) [address] [place], [place] [address] [phone] iSTAT B-hCG < 5.0 Normal 3 Istat Chem8+ Panel 10/27/2020 [facility] Outpatient Testi ng (Registration) [address] [place], [place] [address] [phone] iSTAT HCT 41.0 % Normal 38.0-51.0 iSTAT Glucose 94 mg/dL Normal 70-105 iSTAT Sodium 138 mEq/L Normal 136-145 iSTAT Potassium 4.4 mEq/L Normal 3.5-5.1 iSTAT CA++ 4.8 mg/dL Normal 4.5-5.3 iSTAT Chloride 101 mEq/L Normal 98-109 iSTAT Co2 28.0 MM/L High 23.0-27.0 iSTAT BUN 13 mg/dL Normal 8-26 iSTAT Creatinine 0.7 mg/dL Normal 0.6-1.3 CBC With Differential 10/27/2020 [facility] Outpatient Paige ting (Registration) [address] [place] [address] [phone] White Blood Count 10.4 10 High 4.0-10.0 [...] 36.0-66.0 Lymph % 16.8 % Low 24.0-44.0 [place] % 6.7 % Normal 2.0-8.0 Eos % 3.4 % High 0.0-3.0 Baso % 0.7 % Normal 0.0-1.0 Immature Granulocyte % 0.7 % Normal 0-3.0 Nucleated Red Blood Cell % 0.0 % Normal 0-0 Neutrophils # 7.4 10 Normal 1.5-8.5 Lymph # 1.7 10 Normal 1.5-5.0 [place] # 0.7 10 Normal 0.0-0.8 Eos # 0.4 10 Normal 0.0-0.5 Baso # 0.1 10 Normal 0.0-0.2 Ua W/ Reflex To Culture 10/27/2020 [facility] Outpatient T esting (Registration) [address] [place] [address] [phone] Appearance, Urine RFX CLOUDY High Clear Color, Urine RFX YELLOW Normal Yellow PH,Urine RFX 7.0 units Normal 5.0-9.0 Specific [place] Ur Auto RFX 1.026 Normal 1.002-1.035 Protein, [...] 0 /LPF Normal 0-1 Liver Profile 10/27/2020 [facility] Outpatient Testi ng (Registration) [address] [place], [place] [address] [phone] Ast/Sgot 12 U/L Normal 7-37 Alt/SGPT 25 U/L Normal 12-78 Alkaline Phosphatase 79 U/L Normal 45-117 Bilirubin,Total 0.3 mg/dL Normal 0.2-1.0 Bilirubin,Direct < 0.1 mg/dL Normal 0.0-0.2 Total Protein 7.3 GM/DL Normal 6.4-8.2 Albumin 3.9 GM/DL Normal 3.2-5.2 Albumin/Globulin Ratio 1.1 Low 1.2-2.2 Laboratory test finding 10/27/2020 [facility] Outpatient T esting (Registration) [address] [place] [address] [phone] Lipase 47 U/L Low 73-393 Chlamydia, GC & Trich Amp 10/27/2020 [facility] Outpatient Testing (Registration) [address] [place] [address] [phone] Chlamydia Dna Amplification NEGATIVE Normal Nega tive 4 GC Dna Amplification NEGATIVE Normal Negative 5 Trichomonas vaginalis (Amp) NOT DETECTED Normal Negative 6 1 ASSAY INFORMATION: Real Time RT-PCR NOTE: The COVID-19 assay has been cleared by the U.S. Food and Drug Administration under the Emergency Use Authorization (EUA). [employer] and [employer] are designated as high complexity laboratories by [...] test. Procedures Date Code Description Status 04/12/2021 79772 Office/Outpatient Established Lo w MDM 20-29 Min Completed 02/27/2021 03807 Office/Outpatient Established Lo w MDM 20-29 Min Completed 01/24/2021 85104 Office/Outpatient Established Mo d MDM 30-39 Min Completed 12/29/2020 35570 Office/Outpatient Established Lo w MDM 20-29 Min Completed 10/14/2020 34437 Office/Outpatient Established Mo d MDM 30-39 Min Completed Medical Devices Description No Information Available Encounters Type Date Location Provider Dx Diagnosis Office Visit 04/12/2021 1:45p Family [facility] WILLIAM Morales L98.7 Excessive and redundant skin and subcutaneous tissue Z98.84 Bariatric surgery status Office Visit 02/27/2021 9:40a Family [facility] Dea Thomas D.O. B35.4 Tinea corporis Office Visit 01/24/2021 8:00a [facility] WILLIAM Morales Z98.84 Bariatric surgery status R11.10 Vomiting, unspecified R10.13 Epigastric pain Office Visit 12/29/2020 2:40p [facility] WILLIAM Morales M54.5 Low back pain Office Visit 10/14/2020 8:00a [facility] WILLIAM Morales F31.9 Bipolar disorder, unspecifie d [...] WILLIAM Morales 10/14/2020 E28.2 Polycystic ovarian syndrome [facility] WILLIAM Verdugo 10/14/2020 F43.10 Post-traumatic stress disorder, unspecified WILLIAM Morales Plan of Treatment Future Appointment(s):* 09/06/2021 9:40 am - Dea Thomas D.O. at [facility] Functional Status Description No Information Available Mental Status Description No Information Available Referrals Refer to Reason for Referral Status Appt Date Esthela Herrera had a gastric bypass 12/17/18 and has excessive redundant abdominal fold/skin which she is interested in getting removed. She has diastasis recti muscle dysfunction. [address] [place] [address] [phone] Kamaljit Tan MD Shahana had a gastric sleeve placed while living in [place] in December 2018. She recently developed problems with vomiting and inability to tolerate solid food intake. [facility] 809 [phone] [facility] Shahana for the past three w eeks has been having lower back and pelvis pain with pain down both LE without weakness or trauma to affected area. MRI several years ago showed bulging discs. Recent xray was normal. please evaluate for lower back pain which radiates down LE, right worse then left. Sent [address] [place], [place] [address] [phone]
--- OUTSIDE RECORDS SUMMARY | 2021-04-24 12:38 | CCD | Continuity of Care Document ---
Author Author Shahana UMAÑA A P.A. Organization Unknown Address [address] [place] [address], [address] [address] Phone [phone] Care Team Providers Care Chemical Recovery Operator Name Role Phone Kermit Costa MD AUTM Unavailable Denis Ray AUTM [phone] Problems Description No Information Available Social History [...] H/L Range Note Laboratory test finding 01/30/2021 [facility] [address] [place] [address] [phone] Coronavirus 2019 Nasopharygeal ASSAY INFORMATIO <SEE NOTE> 1 1 ASSAY INFORMATION: Real Time RT-PCR NOTE: The COVID-19 assay has been cleared by the U.S. Food and Drug Administration under the Emergency Use Authorization (EUA). [employer] and [employer] are designated as high complexity laboratories by the Clinical Laboratory Improvement Amendments of 1988(CLIA) and are qualified to perform this test. Not Detected Procedures Date Code Description Status 02/03/2021 43516 Laminectomy One Interspace, Lumb ar Completed 02/03/2021 93484 Laminectomy One Interspace, Lumb ar Completed 01/20/2021 83143 Office/Outpatient Established Mo d MDM 30-39 Min Completed 01/16/2021 54515 Office/Outpatient New Moderate M DM 45-59 Minutes Completed Medical Devices Description No Information Available Encounters Type Date Location Provider Dx Diagnosis Office Visit 01/20/2021 2:45p [facility] Adria Ramírez MD M51.26 Other intervertebral disc displacement, lumbar region M48.061 Spinal stenosis, lumbar marva on without neurogenic [place] M54.16 Radiculopathy, lumbar region Office Visit 01/16/2021 8:45a [facility] Denis Umaña, P.A. M51.36 Other intervertebral disc degeneration, lumbar region M21.371 Foot drop, right foot Assessments Date Code Description Provider 02/03/2021 M51.17 Intervertebral disc disorders with radiculopathy, lumbosacral region Denis Umaña, P.A. 02/03/2021 M51.17 Intervertebral disc disorders with radiculopathy, lumbosacral region Adria Ramírez MD 01/20/2021 M51.26 Other intervertebral disc displa cement, lumbar region Adria Ramírez MD 01/20/2021 M48.061 Spinal stenosis, lum bar region without neurogenic claudication Adria Ramírez MD 01/20/2021 M54.16 Radiculopathy, lumbar region Bru dean Ramírez MD 01/16/2021 M51.36 Other intervertebral disc degene ration, lumbar region Dru Powers 01/16/2021 M21.371 Foot drop, right foot Dru Powers Plan of Treatment Future Appointment(s):* 02/16/2021 3:30 pm - Adria Ramírez MD at [facility] 01/20/2021 - Adria Ramírez MD* M51.26 Other intervertebral disc displacement, lumbar [...] SURGERY NO AUTH REQUIRED FOR LS-SPINE SURGERY (37556) TO SURGERY NT Created [address] [place] [address], [address] [place] [address] [phone] Denis Umaña PA MRI NO AUTH REQUIRED FOR MRI OF LUMBAR SPINE (15898) TO TRIAGE. DG Created [address] [place] [address] [phone] Denis Umaña PA PT BASED ON MED. [facility] TO PT DEPT. NT C reated [address] [place] [address] [phone]
--- OUTSIDE RECORDS SUMMARY | 2021-04-24 12:38 | CCD | Continuity of Care Document ---
Author Shahana Miller Organization [place] [address] Phone [phone] Care Team Providers Care Jet Blade Polisher Name Role Phone Dea Thomas D.O. AUTM Deejay Kumar AUTM Physical Therapy, [facility] AUTM [phone] [facility] AUTM [phone] Esthela Herrera DO AUTM [phone] Problems Active Problems Provider Date Pure hypercholesterolemia [...] for pain 28tabs M54.5 Lio GriffithsOValery 12/29/2020 Rbp-Hx-Vyrzsrvga 0.1 8/0.215/0.25 mg-25 mcg Tablets 1 by [...] Lio RandleOValery 12/29/2020 - 01/24/2021 Lamotrigine Starter Kit-[place] 42X 25 mg & 7 X 100 mg Kit Take as Directed; Maximum Daily Dose Is 100 MG 49units F 31.9 Lio AshOVlaery 10/17/2020 - 04/12/2021 Lamictal 100mg Tablets Take [...] F O2 % BldC Oximetry 98 % [place] Body Weight 130 lb 02/27/2021 9:42am BP Systolic 114 mmHg BP Diastolic 72 mmHg Height 66.7 inches 5'6.70" Weight 224.38 lb BMI (Body Mass Index) 35.5 kg/m2 Heart Rate 101 /min Respiratory Rate 18 /min Body Temperature 98.5 F O2 % BldC Oximetry 99 % [place] Body Weight 130 lb Results Test Acquired Date Facility Test Result H/L Range Note Coronavirus 2019 Nasopharygeal 01/30/2021 [facility] Outpa tient Testing (Registration) [address] [place] [address] [phone] Coronavirus 2019 Nasopharygeal ASSAY INFORMATIO <SEE N OTE> 1 Wet [place] Trichomonas 10/27/2020 [facility] Outpatient Paige ting (Registration) [address] [place] [address] [phone] Wet Prep Reference Interv <SEE NOTE> 2 Laboratory test finding 10/27/2020 [facility] Outpatient T esting (Registration) [address] [place], [place] [address] [phone] iSTAT B-hCG < 5.0 Normal 3 Istat Chem8+ Panel 10/27/2020 [facility] Outpatient Testi ng (Registration) [address] [place], [place] [address] [phone] iSTAT HCT 41.0 % Normal 38.0-51.0 iSTAT Glucose 94 mg/dL Normal 70-105 iSTAT Sodium 138 mEq/L Normal 136-145 iSTAT Potassium 4.4 mEq/L Normal 3.5-5.1 iSTAT CA++ 4.8 mg/dL Normal 4.5-5.3 iSTAT Chloride 101 mEq/L Normal 98-109 iSTAT Co2 28.0 MM/L High 23.0-27.0 iSTAT BUN 13 mg/dL Normal 8-26 iSTAT Creatinine 0.7 mg/dL Normal 0.6-1.3 CBC With Differential 10/27/2020 [facility] Outpatient Paige ting (Registration) [address] [place] [address] [phone] White Blood Count 10.4 10 High 4.0-10.0 [...] 36.0-66.0 Lymph % 16.8 % Low 24.0-44.0 [place] % 6.7 % Normal 2.0-8.0 Eos % 3.4 % High 0.0-3.0 Baso % 0.7 % Normal 0.0-1.0 Immature Granulocyte % 0.7 % Normal 0-3.0 Nucleated Red Blood Cell % 0.0 % Normal 0-0 Neutrophils # 7.4 10 Normal 1.5-8.5 Lymph # 1.7 10 Normal 1.5-5.0 [place] # 0.7 10 Normal 0.0-0.8 Eos # 0.4 10 Normal 0.0-0.5 Baso # 0.1 10 Normal 0.0-0.2 Ua W/ Reflex To Culture 10/27/2020 [facility] Outpatient T esting (Registration) [address] [place] [address] [phone] Appearance, Urine RFX CLOUDY High Clear Color, Urine RFX YELLOW Normal Yellow PH,Urine RFX 7.0 units Normal 5.0-9.0 Specific [place] Ur Auto RFX 1.026 Normal 1.002-1.035 Protein, [...] 0 /LPF Normal 0-1 Liver Profile 10/27/2020 [facility] Outpatient Testi ng (Registration) [address] [place], [place] [address] [phone] Ast/Sgot 12 U/L Normal 7-37 Alt/SGPT 25 U/L Normal 12-78 Alkaline Phosphatase 79 U/L Normal 45-117 Bilirubin,Total 0.3 mg/dL Normal 0.2-1.0 Bilirubin,Direct < 0.1 mg/dL Normal 0.0-0.2 Total Protein 7.3 GM/DL Normal 6.4-8.2 Albumin 3.9 GM/DL Normal 3.2-5.2 Albumin/Globulin Ratio 1.1 Low 1.2-2.2 Laboratory test finding 10/27/2020 [facility] Outpatient T esting (Registration) [address] [place] [address] [phone] Lipase 47 U/L Low 73-393 Chlamydia, GC & Trich Amp 10/27/2020 [facility] Outpatient Testing (Registration) [address] [place] [address] [phone] Chlamydia Dna Amplification NEGATIVE Normal Nega tive 4 GC Dna Amplification NEGATIVE Normal Negative 5 Trichomonas vaginalis (Amp) NOT DETECTED Normal Negative 6 1 ASSAY INFORMATION: Real Time RT-PCR NOTE: The COVID-19 assay has been cleared by the U.S. Food and Drug Administration under the Emergency Use Authorization (EUA). [employer] and [employer] are designated as high complexity laboratories by [...] test. Procedures Date Code Description Status 04/12/2021 29111 Office/Outpatient Established Lo w MDM 20-29 Min Completed 02/27/2021 66784 Office/Outpatient Established Lo w MDM 20-29 Min Completed 01/24/2021 92712 Office/Outpatient Established Mo d MDM 30-39 Min Completed 12/29/2020 45972 Office/Outpatient Established Lo w MDM 20-29 Min Completed 10/14/2020 44256 Office/Outpatient Established Mo d MDM 30-39 Min Completed Medical Devices Description No Information Available Encounters Type Date Location Provider Dx Diagnosis Office Visit 04/12/2021 1:45p Family [facility] WILLIAM Morales L98.7 Excessive and redundant skin and subcutaneous tissue Z98.84 Bariatric surgery status Office Visit 02/27/2021 9:40a Family [facility] Dea Thomas D.O. B35.4 Tinea corporis Office Visit 01/24/2021 8:00a [facility] WILLIAM Morales Z98.84 Bariatric surgery status R11.10 Vomiting, unspecified R10.13 Epigastric pain Office Visit 12/29/2020 2:40p [facility] WILLIAM Morales M54.5 Low back pain Office Visit 10/14/2020 8:00a [facility] WILLIAM Morales F31.9 Bipolar disorder, unspecifie d Z98.84 Bariatric surgery status E28.2 Polycystic ovarian syndrome F43.10 Post-traumatic stress disord er, unspecified Assessments Date Code Description Provider 04/12/2021 L98.7 Excessive and redundant skin and subcutaneous tissue WILLIAM Morales 04/12/2021 Z98.84 Bariatric surgery status WILLIAM Morales 02/27/2021 B35.4 Tinea corporis Dea villeda D.O. 01/24/2021 Z98.84 Bariatric surgery status WILLIAM Mroales 01/24/2021 R11.10 Vomiting, unspecified WILLIAM Martinez 01/24/2021 R10.13 Epigastric pain WILLIAM Morales 12/29/2020 M54.5 Low back pain WILLIAM Morales 10/14/2020 F31.9 Bipolar disorder, unspecified [facility] WILLIAM Virk 10/14/2020 Z98.84 Bariatric surgery status IWLLIAM Morales 10/14/2020 E28.2 Polycystic ovarian syndrome [facility] WILLIAM Verdugo 10/14/2020 F43.10 Post-traumatic stress disorder, unspecified WILLIAM Morales Plan of Treatment Future Appointment(s):* 09/06/2021 9:40 am - Dea Thomas D.O. at [facility] 04/12/2021 - WILLIAM Morales* L98.7 Excessive and [...] has diastasis recti muscle dysfunction. [facility] [address] [place] [address] [phone] Kamaljit Tan MD Shahana had a gastric sleeve placed while living in [place] in December 2018. She recently developed problems with vomiting and inability to tolerate solid food intake. [facility] 809 [phone] [facility] Shahana for the past three w eeks has been having lower back and pelvis pain with pain down both LE without weakness or trauma to affected area. MRI several years ago showed bulging discs. Recent xray was normal. please evaluate for lower back pain which radiates down LE, right worse then left. [facility] [address] [place], [place] [id number] [phone]
--- OUTSIDE RECORDS SUMMARY | 2021-04-24 12:38 | CCD | Continuity of Care Document ---
Author Author Shahana THOMAS D.O. Organization Unknown Address [address] [place] [address] Phone [phone] Care Team Providers Care City Solicitor Name Role Phone Dea Thomas D.O. AUTM Deejay Kumar AUTM Physical Therapy, [facility] AUTM [phone] [facility] AUTM [phone] Kamaljit Tan MD AUTM [phone] Problems Active Problems Provider Date Pure hypercholesterolemia [...] 28tabs M54.5 Lio GriffithsOValery 12/29/2020 Lamotrigine Starter Kit-[place] 42X 25 mg & 7 X 100 mg Kit Take as Directed; Maximum Daily Dose Is 100 MG 49units F 31.9 Lio AshOValery 10/17/2020 Kjv-Zn-Hinzpgfji 0.1 8/0.215/0.25 mg-25 mcg Tablets 1 by mouth every day 84tabs Z01.411 Lio AshOValery 09/02/2020 Dicyclomine HCL 10mg Capsules take one tablet every 8 hours by mouth as needed for diarrhea. 60caps K58.0 Lio AshOValery 08/10/2020 Viibryd 20mg Tablets 2 by mouth once daily 60tabs Lio AshOValery Trazodone HCL 100mg Tablets take 1 by [...] F O2 % BldC Oximetry 99 % [place] Body Weight 130 lb 01/24/2021 8:09am BP Systolic 124 mmHg BP Diastolic 86 mmHg Height 66.7 inches 5'6.70" Weight 229.00 lb BMI (Body Mass Index) 36.2 kg/m2 Heart Rate 105 /min Body Temperature 98.3 F O2 % BldC Oximetry 98 % [place] Body Weight 130 lb Results Test Acquired Date Facility Test Result H/L Range Note Coronavirus 2019 Nasopharygeal 01/30/2021 [facility] Outpa tient Testing (Registration) [address] [place] [address] [phone] Coronavirus 2019 Nasopharygeal ASSAY INFORMATIO <SEE N OTE> 1 Wet [place] Trichomonas 10/27/2020 [facility] Outpatient Paige ting (Registration) [address] [place] [address] [phone] Wet Prep Reference Interv <SEE NOTE> 2 Chlamydia, GC & Trich Amp 10/27/2020 [facility] Outpatient Testing (Registration) [address] [place], [place] [id number] [phone] Chlamydia Dna Amplification NEGATIVE Normal Nega tive 3 GC Dna Amplification NEGATIVE Normal Negative 4 Trichomonas vaginalis (Amp) NOT DETECTED Normal Negative 5 Laboratory test finding 10/27/2020 [facility] Outpatient T esting (Registration) [address] [place] [address] [phone] Lipase 47 U/L Low 73-393 Liver Profile 10/27/2020 [facility] Outpatient Testi ng (Registration) [address] [place] [address] [phone] Ast/Sgot 12 U/L Normal 7-37 Alt/SGPT 25 U/L Normal 12-78 Alkaline Phosphatase 79 U/L Normal 45-117 Bilirubin,Total 0.3 mg/dL Normal 0.2-1.0 Bilirubin,Direct < 0.1 mg/dL Normal 0.0-0.2 Total Protein 7.3 GM/DL Normal 6.4-8.2 Albumin 3.9 GM/DL Normal 3.2-5.2 Albumin/Globulin Ratio 1.1 Low 1.2-2.2 Ua W/ Reflex To Culture 10/27/2020 [facility] Outpatient T esting (Registration) [address] [place] [phone] Appearance, Urine RFX CLOUDY High Clear Color, Urine RFX YELLOW Normal Yellow PH,Urine RFX 7.0 units Normal 5.0-9.0 Specific [place] Ur Auto RFX 1.026 Normal 1.002-1.035 Protein, [...] /LPF Normal 0-1 CBC With Differential 10/27/2020 [facility] Outpatient Paige brianna (Registration) [address] [place] [address] [phone] White Blood Count 10.4 10 High 4.0-10.0 [...] 36.0-66.0 Lymph % 16.8 % Low 24.0-44.0 [place]mer % 6.7 % Normal 2.0-8.0 Eos % 3.4 % High 0.0-3.0 Baso % 0.7 % Normal 0.0-1.0 Immature Granulocyte % 0.7 % Normal 0-3.0 Nucleated Red Blood Cell % 0.0 % Normal 0-0 Neutrophils # 7.4 10 Normal 1.5-8.5 Lymph # 1.7 10 Normal 1.5-5.0 Bremer # 0.7 10 Normal 0.0-0.8 Eos # 0.4 10 Normal 0.0-0.5 Baso # 0.1 10 Normal 0.0-0.2 Istat Chem8+ Panel 10/27/2020 [facility] Outpatient Testi ng (Registration) [address] [place] [address] [phone] iSTAT HCT 41.0 % Normal 38.0-51.0 iSTAT Glucose 94 mg/dL Normal 70-105 iSTAT Sodium 138 mEq/L Normal 136-145 iSTAT Potassium 4.4 mEq/L Normal 3.5-5.1 iSTAT CA++ 4.8 mg/dL Normal 4.5-5.3 iSTAT Chloride 101 mEq/L Normal 98-109 iSTAT Co2 28.0 MM/L High 23.0-27.0 iSTAT BUN 13 mg/dL Normal 8-26 iSTAT Creatinine 0.7 mg/dL Normal 0.6-1.3 Laboratory test finding 10/27/2020 [facility] Outpatient T esting (Registration) [address] [place] [address] [phone] iSTAT B-hCG < 5.0 Normal 6 Laboratory test finding 09/02/2020 Inhouse Inhouse Urine neg Laboratory test finding 09/02/2020 [facility] [address] [place] [address] [id number] [phone] Genital Culture FULL REPORT IN L <SEE [...] DNR Normal Comment: (SEE NOTE) Normal 17 Airline Operations Agent: (SEE NOTE) Normal 18 Review Airline Operations Agent: DNR Normal Pathologist: (SEE NOTE) Normal 19 [...] finding 09/02/2020 [facility] Enhanced PDF Report [id number] SEE IMAGE 1 ASSAY INFORMATION: Real Time RT-PCR NOTE: The COVID-19 assay has been cleared by the U.S. Food and Drug Administration under the Emergency Use Authorization (EUA). [employer] and [email or web address] are designated as high complexity laboratories by [...] STI screening follows ACOG guidelines(PB 168, 140, KSN514). See individual assays for performing site location. 9 Routine exam 10 None given 11 None given 12 None given 13 Cervix, Endocervix 14 Satisfactory for evaluation. Endocervical/transformation zone component present. 15 EPITHELIAL CELL ABNORMALITY 16 Atypical Squamous Cells of U ndetermined Significance (ASC-US) 17 This Pap test has been evalu ated with computer assisted technology. 18 MRS, CT(ASCP) CT screening l ocation: [facility], [address] [place] [address] . 19 Jovani Houston MD, PhD, M.B.A. Board Certified in Anatomic and Clinical Pathology Board Certified in Cytopathology (electronic signature) For questions regarding this report call Anatomic Pathology at [phone] 20 EXPLANATORY NOTE: The Pap is a screening test for cervical cancer. It is not a diagnostic test and is subject to false negative and false positive results. It is most reliable when a satisfactory sample, regularly obtained, is submitted with relevant clinical findings and history, and when the Pap result is evaluated along with historic and current clinical information. 21 Methodology: Cloth Handler-M ediated Amplification This assay detects E6/E7 viral messenger RNA (mRNA) from 14 high-risk HPV types (16,18,31,33,35,39,45,51,52,56,58,59,66,68). The analytical performance characteristics of this assay have been determined by [facility]. The modifications have not been cleared or approved by the FDA. This assay has been validated pursuant to the CLIA regulations and is used for clinical purposes. For additional information, please refer to http://education.[employer]/faq/YCO558k0 (This link if provided for information/ educational purposes only.) 22 The analytical performance c haracteristics of this assay, when used to test SurePath(TM) specimens have been determined by [facility]. The modifications have not been cleared or approved by the FDA. This assay has been validated pursuant to the CLIA regulations and is used for clinical purposes. For additional information, please refer to https://[employer]/faq/NJN642 (This link is being provided for informa tion/ educational purposes only.) Procedures Date Code Description Status 02/27/2021 22438 Office/Outpatient Established Lo w MDM 20-29 Min Completed 01/24/2021 50888 Office/Outpatient Established Mo d MDM 30-39 Min Completed 12/29/2020 60529 Office/Outpatient Established Lo w MDM 20-29 Min Completed 10/14/2020 53841 Office/Outpatient Established Mo d MDM 30-39 Min Completed 09/16/2020 69343 Office/Outpatient Established Mo d MDM 30-39 Min Completed 09/02/2020 17014 Preventive Visit Est 18-39 Yrs C ompleted 09/02/2020 37398 Office/Outpatient Established SF MDM 10-19 Min Completed Medical Devices Description No Information Available Encounters Type Date Location Provider Dx Diagnosis Office Visit 02/27/2021 9:40a [facility] Dea Thomas D.O. B35.4 Tinea corporis Office Visit 01/24/2021 8:00a [facility] WILLIAM Morales Z98.84 Bariatric surgery status R11.10 Vomiting, unspecified R10.13 Epigastric pain Office Visit 12/29/2020 2:40p [facility] WILLIAM Morales M54.5 Low back pain Office Visit 10/14/2020 8:00a [facility] WILLIAM Morales F31.9 Bipolar disorder, unspecifie d Z98.84 Bariatric surgery status E28.2 Polycystic ovarian syndrome F43.10 Post-traumatic stress disord er, unspecified Office Visit 09/16/2020 2:15p [facility] WILLIAM Jon F31.9 Bipolar disorder, unspecifie d Z98.84 Bariatric surgery status E28.2 Polycystic ovarian syndrome 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 Z01.411 Encntr for converter skimmer exam (general ) (routine) w abnormal findings [...] 1:30 pm - Dea Thomas D.O. at [facility] * 09/06/2021 9:40 am - Dea Thomas D.O. at [facility] Functional Status Description No Information Available Mental Status Description No Information Available Referrals Refer to Reason for Referral Status Appt Date Kamaljit Tan MD had a gastric sleeve placed while living in [place] in December 2018. She recently developed problems with vomiting and inability to tolerate solid food intake. [facility] [address] [facility] [address] 809 [phone] [facility] Shahana for the past three w eeks has been having lower back and pelvis pain with pain down both LE without weakness or trauma to affected area. MRI several years ago showed bulging discs. Recent xray was normal. please evaluate for lower back pain which radiates down LE, right worse then left. [facility] [address] [place] [address] [phone]
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
--- OUTSIDE RECORDS SUMMARY | 2021-04-24 12:40 | CCD ---
Author Author [facility] Organization [facility] Address Unknown Phone Unavailable Care Team Providers Care Mechanical Engineering Technician Name Role Phone Donavon Chadwick MD Unavailable Unavailable Donavon Chadwick MD Unavailable Unavailable Donavon Chadwick MD Unavailable Unavailable Donavon Chadwick MD Unavailable Unavailable Donavon Chadwick MD Unavailable Unavailable Donavon Chadwick MD Unavailable Unavailable Donavon Chadwick MD Unavailable Unavailable Donavon Chadwick MD Unavailable Unavailable Donavon Chadwick MD Unavailable Unavailable Donavon Chadwick MD Unavailable Unavailable Donavon Chadwick MD Unavailable Unavailable Donavon Chadwick MD Unavailable Unavailable Donavon Chadwick MD Unavailable Unavailable Donavon Chadwick MD Unavailable Unavailable Donavon Chadwick MD Unavailable Unavailable Donavon Chadwick MD Unavailable Unavailable Donavon Chadwick MD Unavailable Unavailable Donavon Chadwick MD Unavailable Unavailable Donavon Chadwick MD Unavailable Unavailable Donavon Chadwick MD Unavailable Unavailable Donavon Chadwick MD Unavailable Unavailable Donavon Chadwick MD Unavailable Unavailable Donavon Chadwick MD Unavailable Unavailable Donavon Chadwick MD Unavailable Unavailable Donavon Chadwick MD Unavailable Unavailable Donavon Chadwick MD Unavailable Unavailable Donavon Chadwick MD Unavailable Unavailable Donavon Chadwick MD Unavailable Unavailable Chadwick, L Adria LEIGH Unavailable Unavailable Chadwick, L Adria LEIGH Unavailable Unavailable Chadwick, L Adria LEIGH Unavailable Unavailable Chadwick, L Adria LEIGH Unavailable Unavailable Chadwick, L Adria LEIGH Unavailable Unavailable Chadwick, L Adria LEIGH Unavailable Unavailable Chadwick, L Adria LEIGH Unavailable Unavailable Chadwick, L Adria LEIGH Unavailable Unavailable Chadwick, L Adria LEIGH Unavailable Unavailable Chadwick, L Adria LEIGH Unavailable Unavailable Chadwick, L Adria LEIGH Unavailable Unavailable Chadwick, L Adria LEIGH Unavailable Unavailable Chadwick, L Adria LEIGH Unavailable Unavailable Chadwick, L Adria LEIGH Unavailable Unavailable Chadwick, L Adria LEIGH Unavailable Unavailable Chadwick, L Adria LEIGH Unavailable Unavailable Chadwick, L Adria LEIGH Unavailable Unavailable Chadwick, L Adria LEIGH Unavailable Unavailable Chadwick, L Adria LEIGH Unavailable Unavailable Chadwick, L Adria LEIGH Unavailable Unavailable Chadwick, L Adria LEIGH Unavailable Unavailable Chadwick, L Adria LEIGH Unavailable Unavailable MIGUEL ÁNGEL-KEITH, ATTILA DO Unavailable Unavailable MIGUEL ÁNGEL-KEITH, ATTILA DO Unavailable Unavailable MIGUEL ÁNGEL-KEITH, ATTILA DO Unavailable Unavailable MIGUEL ÁNGEL-KEITH, ATTILA DO Unavailable Unavailable MIGUEL ÁNGEL-KEITH, ATTILA DO Unavailable Unavailable MIGUEL ÁNGEL-KEITH, ATTILA DO Unavailable Unavailable MIGUEL ÁNGEL-KEITH, ATTILA DO Unavailable Unavailable MIGUEL ÁNGEL-KEITH, ATTILA DO Unavailable Unavailable MIGUEL ÁNGEL-KEITH, ATTILA DO Unavailable Unavailable MIGUEL ÁNGEL-KEITH, ATTILA DO Unavailable Unavailable MIGUEL ÁNGEL-KEITH, ATTILA DO Unavailable Unavailable MIGUEL ÁNGEL-KEITH, ATTILA DO Unavailable Unavailable MIGUEL ÁNGEL-KEITH, ATTILA DO Unavailable Unavailable MIGUEL ÁNGEL-KEITH, ATTILA DO Unavailable Unavailable MIGUEL ÁNGEL-KEITH, ATTILA DO Unavailable Unavailable MIGUEL ÁNGEL-KEITH, ATTILA DO Unavailable Unavailable MIGUEL ÁNGEL-KEITH, ATTILA DO Unavailable Unavailable MIGUEL ÁNGEL-KEITH, ATTILA DO Unavailable Unavailable MIGUEL ÁNGEL-KEITH, ATTILA DO Unavailable Unavailable MIGUEL ÁNGEL-KEITH, ATTILA DO Unavailable Unavailable MIGUEL ÁNGEL-KEITH, ATTILA DO Unavailable Unavailable MIGUEL ÁNGEL-KEITH, ATTILA DO Unavailable Unavailable MIGUEL ÁNGEL-KEITH, ATTILA DO Unavailable Unavailable MIGUEL ÁNGEL-KEITH, ATTILA DO Unavailable Unavailable MIGUEL ÁNGEL-KEITH, ATTILA DO Unavailable Unavailable MIGUEL ÁNGEL-KEITH, ATTILA DO Unavailable Unavailable MIGUEL ÁNGEL-KEITH, ATTILA DO Unavailable Unavailable MIGUEL ÁNGEL-KEITH, ATTILA DO Unavailable Unavailable MIGUEL ÁNGEL-KEITH, ATTILA DO Unavailable Unavailable MIGUEL ÁNGEL-KEITH, ATTILA DO Unavailable Unavailable MIGUEL ÁNGEL-KEITH, ATTILA DO Unavailable Unavailable MIGUEL ÁNGEL-KEITH, ATTILA DO Unavailable Unavailable MIGUEL ÁNGEL-KEITH, ATTILA DO Unavailable Unavailable MIGUEL ÁNGEL-KEITH, ATTILA DO Unavailable Unavailable MIGUEL ÁNGEL-KEITH, ATTILA DO Unavailable Unavailable MIGUEL ÁNGEL-KEITH, ATTILA DO Unavailable Unavailable MIGUEL ÁNGEL-KEITH, ATTILA DO Unavailable Unavailable MIGUEL ÁNGEL-KEITH, ATTILA DO Unavailable Unavailable MIGUEL ÁNGEL-KEITH, ATTILA DO Unavailable Unavailable MIGUEL ÁNGEL-KEITH, ATTILA DO Unavailable Unavailable MIGUEL ÁNGEL-KEITH, ATTILA DO Unavailable Unavailable MIGUEL ÁNGEL-KEITH, ATTILA DO Unavailable Unavailable MIGUEL ÁNGEL-KEITH, ATTILA DO Unavailable Unavailable MIGUEL ÁNGEL-KEITH, ATTILA DO Unavailable Unavailable MIGUEL ÁNGEL-KEITH, ATTILA DO Unavailable Unavailable MIGUEL ÁNGEL-KEITH, ATTILA DO Unavailable Unavailable MIGUEL ÁNGEL-KEITH, ATTILA DO Unavailable Unavailable MIGUEL ÁNGEL-KEITH, ATTILA DO Unavailable Unavailable MIGUEL ÁNGEL-KEITH, ATTILA DO Unavailable Unavailable MIGUEL ÁNGEL-KEITH, ATTILA DO Unavailable Unavailable MIGUEL ÁNGEL-KEITH, ATTILA DO Unavailable Unavailable MIGUEL ÁNGEL-KEITH, ATTILA DO Unavailable Unavailable MIGUEL ÁNGEL-KEITH, ATTILA DO Unavailable Unavailable MIGUEL ÁNGEL-KEITH, ATTILA DO Unavailable Unavailable MIGUEL ÁNGEL-KEITH, ATTILA DO Unavailable Unavailable MIGUEL ÁNGEL-KEITH, ATTILA DO Unavailable Unavailable MIGUEL ÁNGEL-KEITH, ATTILA DO Unavailable Unavailable MIGUEL ÁNGEL-KEITH, ATTILA DO Unavailable Unavailable MIGUEL ÁNGEL-KEITH, ATTILA DO Unavailable Unavailable MIGUEL ÁNGEL-KEITH, ATTILA DO Unavailable Unavailable MIGUEL ÁNGEL-KEITH, ATTILA DO Unavailable Unavailable MIGUEL ÁNGEL-KEITH, ATTILA DO Unavailable Unavailable MIGUEL ÁNGEL-KEITH, ATTILA DO Unavailable Unavailable MIGUEL ÁNGEL-KEITH, ATTILA DO Unavailable Unavailable MIGUEL ÁNGEL-KEITH, ATTILA DO Unavailable Unavailable MIGUEL ÁNGEL-KEITH, ATTILA DO Unavailable Unavailable MIGUEL ÁNGEL-KEITH, ATTILA DO Unavailable Unavailable MIGUEL ÁNGEL-KEITH, ATTILA DO Unavailable Unavailable MIGUEL ÁNGEL-KEITH, ATTILA DO Unavailable Unavailable MIGUEL ÁNGEL-KEITH, ATTILA DO Unavailable Unavailable MIGUEL ÁNGEL-KEITH, ATTILA DO Unavailable Unavailable MIGUEL ÁNGEL-KEITH, ATTILA DO Unavailable Unavailable MIGUEL ÁNGEL-KEITH, ATTILA DO Unavailable Unavailable MIGUEL ÁNGEL-KEITH, ATTILA DO Unavailable Unavailable MIGUEL ÁNGEL-KEITH, ATTILA DO Unavailable Unavailable MIGUEL ÁNGEL-KEITH, ATTILA DO Unavailable Unavailable MIGUEL ÁNGEL-KEITH, ATTILA DO Unavailable Unavailable MIGUEL ÁNGEL-KEITH, ATTILA DO Unavailable Unavailable MIGUEL ÁNGEL-KEITH, ATTILA DO Unavailable Unavailable MIGUEL ÁNGEL-KEITH, ATTILA DO Unavailable Unavailable MIGUEL ÁNGEL-KEITH, ATTILA DO Unavailable Unavailable MIGUEL ÁNGEL-KEITH, ATTILA DO Unavailable Unavailable MIGUEL ÁNGEL-KEITH, ATTILA DO Unavailable Unavailable MIGUEL ÁNGEL-KEITH, ATTILA DO Unavailable Unavailable Chadwick, L Adria LEIGH Unavailable Unavailable Chadwick, L Adria LEIGH Unavailable Unavailable Chadwick, Donavon Covington MD Unavailable Unavailable Chadwick, L Adria LEIGH Unavailable Unavailable Chadwick, Donavon Covington MD Unavailable Unavailable Chadwick, L Adria LEIGH Unavailable Unavailable Chadwick, L Adria LEIGH Unavailable Unavailable Chadwick, L Adria LEIGH Unavailable Unavailable Chadwick, L Adria LEIGH Unavailable Unavailable Chadwick, L Adria LEIGH Unavailable Unavailable Chadwick, L Adria LEIGH Unavailable Unavailable Chadwick, L Adria LEIGH Unavailable Unavailable Chadwick, L Adria LEIGH Unavailable Unavailable Chadwick, L Adria LEIGH Unavailable Unavailable Chadwick, L Adria LEIGH Unavailable Unavailable Chadwick, L Adria LEIGH Unavailable Unavailable Chadwick, L Adria LEIGH Unavailable Unavailable Chadwick, Donavon Covington MD Unavailable Unavailable Chadwick, L Adria LEIGH Unavailable Unavailable Chadwick, L Adria LEIGH Unavailable Unavailable Chadwick, L Adria LEIGH Unavailable Unavailable Chadwick, L Adria LEIGH Unavailable Unavailable Chadwick, L Adria LEGIH Unavailable Unavailable Chadwick, L Adria LEIGH Unavailable Unavailable Chadwick, L Adria LEIGH Unavailable Unavailable Chadwick, Donavon Covington MD Unavailable Unavailable Chadwick, L Adria LEIGH Unavailable Unavailable Chadwick, L Adria LEIGH Unavailable Unavailable Chadwick, L Adria LEIGH Unavailable Unavailable Chadwick, L Adria LEIGH Unavailable Unavailable Chadwick, L Adria LEIGH Unavailable Unavailable Chadwick, L Adria LEIGH Unavailable Unavailable Chadwick, L Adria LEIGH Unavailable Unavailable Chadwick, L Adria LEIGH Unavailable Unavailable Chadwick, L Adria LEIGH Unavailable Unavailable Chadwick, L Adria LEIGH Unavailable Unavailable Chadwick, L Adria LEIGH Unavailable Unavailable Chadwick, L Adria LEIGH Unavailable Unavailable Chadwick, L Adria LEIGH Unavailable Unavailable Chadwick, L Adria LEIGH Unavailable Unavailable Chadwick, Donavon Covington MD Unavailable Unavailable Chadwick, Donavon Covington MD Unavailable Unavailable Chadwick, Donavon Covington MD Unavailable Unavailable Chadwick, Donavon Covington MD Unavailable Unavailable Chadwick, Donavon Covington MD Unavailable Unavailable Chadwick, Donavon Covington MD Unavailable Unavailable Chadwick, Donavon Covington MD Unavailable Unavailable Chdawick, Donvaon Covington MD Unavailable Unavailable Chadwick, Donavon Covington MD Unavailable Unavailable Chadwick, Donavon Covington MD Unavailable Unavailable Rasta, Shae Unavailable Unavailable Rasta, Shae Unavailable Unavailable Rasta, Shae Unavailable Unavailable MCELHERAN, VENKATESH PA Unavailable Unavailable MCELHERAN, VENKATESH PA Unavailable Unavailable MCELHERAN, VENKATESH PA Unavailable Unavailable MCELHERAN, VENKATESH PA Unavailable Unavailable MCELHERAN, VENKATESH PA Unavailable Unavailable MCELHERAN, VENKATESH PA Unavailable Unavailable MCELHERAN, VENKATESH PA Unavailable Unavailable MCELHERAN, VENKATESH PA Unavailable Unavailable MCELHERAN, VENKATESH PA Unavailable Unavailable MCELHERAN, VENKATESH PA Unavailable Unavailable MCELHERAN, VENKATESH PA Unavailable Unavailable MCELHERAN, VENKATESH PA Unavailable Unavailable MCELHERAN, VENKATESH PA Unavailable Unavailable MCELHERAN, VENKATESH PA Unavailable Unavailable MCELHERAN, VENKATESH PA Unavailable Unavailable MCELHERAN, VENKATESH PA Unavailable Unavailable MCELHERAN, VENKATESH PA Unavailable Unavailable MCELHERAN, VENKATESH PA Unavailable Unavailable MCELHERAN, VENKATESH PA Unavailable Unavailable MCELHERAN, VENKATESH PA Unavailable Unavailable MCELHERAN, VENKATESH PA Unavailable Unavailable MCELHERAN, VENKATESH PA Unavailable Unavailable MCELHERAN, VENKATESH PA Unavailable Unavailable MCELHERAN, VENKATESH PA Unavailable Unavailable MCELHERAN, VENKATESH PA Unavailable Unavailable MCELHERAN, VENKATESH PA Unavailable Unavailable MCELHERAN, VENKATESH PA Unavailable Unavailable MCELHERAN, VENKATESH PA Unavailable Unavailable MCELHERAN, VENKATESH PA Unavailable Unavailable MCELHERAN, VENKATESH PA Unavailable Unavailable MCELHERAN, VENKATESH PA Unavailable Unavailable MCELAN, VENKATESH PA Unavailable Unavailable MCELHERAN, VENKATESH PA Unavailable Unavailable MCELHERAN, VENKATESH PA Unavailable Unavailable MCELHERAN, VENKATESH PA Unavailable Unavailable MCELHERAN, VENKATESH PA Unavailable Unavailable MCELHERAN, VENKATESH PA Unavailable Unavailable MCELHERAN, VENKATESH PA Unavailable Unavailable MCELHERAN, VENKATESH PA Unavailable Unavailable MCELHERAN, VENKATESH PA Unavailable Unavailable MCELHERAN, VENKATESH PA Unavailable Unavailable MCELHERAN, VENKATESH PA Unavailable Unavailable MCELHERAN, VENKATESH PA Unavailable Unavailable MCELHERAN, VENKATESH PA Unavailable Unavailable MCELHERAN, VENKATESH PA Unavailable Unavailable MCELCLAUDIA, VENKATESH PA Unavailable Unavailable MCELCLAUDIA, VENKATESH PA Unavailable Unavailable FELTONLCLAUDIA, VENKATESH PA Unavailable Unavailable MCELHERJYOTI, VENKATESH PA Unavailable Unavailable MCELHERJYOTI, VENKATESH PA Unavailable Unavailable MCELHERJYOTI, VENKATESH PA Unavailable Unavailable MCELHERJYOTI, VENKATESH PA Unavailable Unavailable MCELCLAUDIA, VENKATESH PA Unavailable Unavailable MCELHERJYOTI, VENKATESH PA Unavailable Unavailable FELTONLCLAUDIA, VENKATESH PA Unavailable Unavailable MCELHERJYOTI, VENKATESH PA Unavailable Unavailable MCELHERJYOTI, VENKATESH PA Unavailable Unavailable MCELHERJYOTI, VENKATESH PA Unavailable Unavailable Feola, T Dee PA Unavailable Unavailable Feola, T Dee PA Unavailable Unavailable Feola, T Dee PA Unavailable Unavailable Feola, T Dee PA Unavailable Unavailable Feola, T Dee PA Unavailable Unavailable Feola, T Dee PA Unavailable Unavailable Feola, T Dee PA Unavailable Unavailable Feola, T Dee PA Unavailable Unavailable Feola, T Dee PA Unavailable Unavailable Feola, T Dee PA Unavailable Unavailable Feola, T Dee PA Unavailable Unavailable Feola, T Dee PA Unavailable Unavailable Feola, T Dee PA Unavailable Unavailable Feola, T Dee PA Unavailable Unavailable Feola, T Dee PA Unavailable Unavailable Feola, T Dee PA Unavailable Unavailable Feola, T Dee PA Unavailable Unavailable Feola, T Dee PA Unavailable Unavailable Feola, T Dee PA Unavailable Unavailable Feola, T Dee PA Unavailable Unavailable Feola, T Dee PA Unavailable Unavailable Feola, T Dee PA Unavailable Unavailable Feola, T Dee PA Unavailable Unavailable Feola, T Dee PA Unavailable Unavailable Feola, T Dee PA Unavailable Unavailable Feola, T Dee PA Unavailable Unavailable Feola, T Dee PA Unavailable Unavailable Feola, T Dee PA Unavailable Unavailable Feola, T Dee PA Unavailable Unavailable Feola, T Dee PA Unavailable Unavailable Feola, T Dee PA Unavailable Unavailable Feola, T Dee PA Unavailable Unavailable Feola, T Dee PA Unavailable Unavailable Feola, T Dee PA Unavailable Unavailable Feola, T Dee PA Unavailable Unavailable Feola, T Dee PA Unavailable Unavailable Feola, T Dee PA Unavailable Unavailable Feola, T Dee PA Unavailable Unavailable Feola, T Dee PA Unavailable Unavailable Feola, T Dee PA Unavailable Unavailable Feola, T Dee PA Unavailable Unavailable O'radha, A Venkatesh PA Unavailable Unavailable O'radha, A Venkatesh PA Unavailable Unavailable O'radha, A Venkatesh PA Unavailable Unavailable O'radha, A Venkatesh PA Unavailable Unavailable O'radha, A Venkatesh PA Unavailable Unavailable O'radha, A Venkatesh PA Unavailable Unavailable O'radha, A Venkatesh PA Unavailable Unavailable O'radha, A Venkatesh PA Unavailable Unavailable O'radha, A Venkatesh PA Unavailable Unavailable O'radha, A Venkatesh PA Unavailable Unavailable O'radha, A Venkatesh PA Unavailable Unavailable O'radha, A Venkatesh PA Unavailable Unavailable O'radha, A Venkatesh PA Unavailable Unavailable O'radha, A Venkatesh PA Unavailable Unavailable O'radha, A Venkatesh PA Unavailable Unavailable O'radha, A Venkatesh PA Unavailable Unavailable O'radha, A Venkatesh PA Unavailable Unavailable O'radha, A Venkatesh PA Unavailable Unavailable O'radha, A Venkatesh PA Unavailable Unavailable O'radha, A Venkatesh PA Unavailable Unavailable O'radha, A Venkatesh PA Unavailable Unavailable O'radha, A Venkatesh PA Unavailable Unavailable O'radha, A Venkatesh PA Unavailable Unavailable O'radha, A Venkatesh PA Unavailable Unavailable O'radha, A Venkatesh PA Unavailable Unavailable O'radha, A Venkatesh PA Unavailable Unavailable O'radha, A Venkatesh PA Unavailable Unavailable O'radha, A Venkatesh PA Unavailable Unavailable O'radha, A Venkatesh PA Unavailable Unavailable O'radha, A Venkatesh PA Unavailable Unavailable O'radha, A Venkatesh PA Unavailable Unavailable O'radha, A Venkatesh PA Unavailable Unavailable O'radha, A Venkatesh PA Unavailable Unavailable TONTARSKI, G ABHISHEK PA Unavailable Unavailable TONTARSKI, G ABHISHEK PA Unavailable Unavailable TONTARSKI, G ABHISHEK PA Unavailable Unavailable TONTARSKI, G ABHISHEK PA Unavailable Unavailable TONTARSKI, G ABHISHEK PA Unavailable Unavailable TONTARSKI, G ABHISHEK PA Unavailable Unavailable TONTARSKI, G ABHISHEK PA Unavailable Unavailable TONTARSKI, G ABHISHEK PA Unavailable Unavailable TONTARSKI, G ABHISHEK PA Unavailable Unavailable TONTARSKI, G ABHISHEK PA Unavailable Unavailable TONTARSKI, G ABHISHEK PA Unavailable Unavailable TONTARSKI, G ABHISHEK PA Unavailable Unavailable TONTARSKI, G ABHISHEK PA Unavailable Unavailable TONTARSKI, G ABHISHEK PA Unavailable Unavailable TONTARSKI, G ABHISHEK PA Unavailable Unavailable TONTARSLUL, G ABHISHEK PA Unavailable Unavailable TONTARSLUL, G ABHISHEK PA Unavailable Unavailable TONTARSLUL, G ABHISHEK PA Unavailable Unavailable TONTARSLUL, G ABHISHEK PA Unavailable Unavailable TONTARSLUL, G ABHISHEK PA Unavailable Unavailable TONTARSLUL, G ABHISHEK PA Unavailable Unavailable TONTARSLUL, G ABHISHEK PA Unavailable Unavailable TONTARSLUL, G ABHISHEK PA Unavailable Unavailable TONTARSLUL, G ABHISHEK PA Unavailable Unavailable TONTARSLUL, G ABHISHEK PA Unavailable Unavailable TONTARSLUL, G ABHISHEK PA Unavailable Unavailable TONTARSLUL, G ABHISHEK PA Unavailable Unavailable TONTARSLUL, G ABHISHEK PA Unavailable Unavailable TONTARSLUL, G ABHISHEK PA Unavailable Unavailable TONTARSLUL, G ABHISHEK PA Unavailable Unavailable TONTARSLUL, G ABHISHEK PA Unavailable Unavailable TONTARSLUL, G ABHISHEK PA Unavailable Unavailable TONTARSLUL, G ABHISHEK PA Unavailable Unavailable TONTARSLUL, G ABHISHEK PA Unavailable Unavailable TONTARSLUL, G ABHISHEK PA Unavailable Unavailable TONTARSLUL, G ABHISHEK PA Unavailable Unavailable TONTARSLUL, G ABHISHEK PA Unavailable Unavailable TONTARSLUL, G ABHISHEK PA Unavailable Unavailable TONTARSLUL, G ABHISHEK PA Unavailable Unavailable TONTARSLUL, G ABHISHEK PA Unavailable Unavailable TONTARSLUL, G ABHISHEK PA Unavailable Unavailable TONTARSLUL, G ABHISHEK PA Unavailable Unavailable TONTARSLUL, G ABHISHEK PA Unavailable Unavailable TONTARSLUL, G ABHISHEK PA Unavailable Unavailable TONTARSLUL, G ABHISHEK PA Unavailable Unavailable TONTARSLUL, G ABHISHEK PA Unavailable Unavailable TONTARSLUL, G ABHISHEK PA Unavailable Unavailable EGORHO, F IZZY FPMHNP Unavailable Unavailable EGORHO, F IZZY FPMHNP Unavailable Unavailable EGORHO, F IZZY FPMHNP Unavailable Unavailable EGORHO, F IZZY FPMHNP Unavailable Unavailable EGORHO, F IZZY FPMHNP Unavailable Unavailable EGORHO, F IZZY FPMHNP Unavailable Unavailable EGORHO, F IZZY FPMHNP Unavailable Unavailable EGORHO, F IZZY FPMHNP Unavailable Unavailable ISHA ORTIZ Unavailable Unavailable Chadwick, L Adria MD Unavailable Unavailable Chadwick, L Adria MD Unavailable Unavailable Chadwick, L Adria MD Unavailable Unavailable Chadwick, L Adria MD Unavailable Unavailable Chadwick, L Adria MD Unavailable Unavailable Chadwick, L Adria MD Unavailable Unavailable Chadwick, L Adria MD Unavailable Unavailable Chadwick, L Adria MD Unavailable Unavailable Chadwick, L Adria MD Unavailable Unavailable Chadwick, L Adria MD Unavailable Unavailable Chadwick, L Adria MD Unavailable Unavailable Chadwick, L Adria MD Unavailable Unavailable Chadwick, L Adria MD Unavailable Unavailable Chadwick, L Adria MD Unavailable Unavailable Chadwick, L Adria MD Unavailable Unavailable Chadwick, L Adria MD Unavailable Unavailable Chadwick, L Adria MD Unavailable Unavailable Chadwick, L Adria MD Unavailable Unavailable Chadwick, L Adria MD Unavailable Unavailable Chadwick, L Adria MD Unavailable Unavailable Chadwick, L Adria MD Unavailable Unavailable Chadwick, L Adria MD Unavailable Unavailable Chadwick, L Adria MD Unavailable Unavailable Chadwick, L Adria MD Unavailable Unavailable Chadwick, L Adria MD Unavailable Unavailable Chadwick, L Adria MD Unavailable Unavailable Chadwick, L Adria MD Unavailable Unavailable Chadwick, L Adria MD Unavailable Unavailable Chadwick, L Adria MD Unavailable Unavailable Chadwick, L Adria MD Unavailable Unavailable Chadwick, L Adria MD Unavailable Unavailable Chadwick, L Adria MD Unavailable Unavailable Chadwick, L Adria MD Unavailable Unavailable Chadwick, L Adria MD Unavailable Unavailable Chadwick, L Adria MD Unavailable Unavailable Chadwick, L Adria MD Unavailable Unavailable Chadwick, L Adria MD Unavailable Unavailable Chadwick, L Adria MD Unavailable Unavailable Chadwick, L Adria MD Unavailable Unavailable Chadwick, L Adria MD Unavailable Unavailable Chadwick, L Adria LEIGH Unavailable Unavailable Chadwick, L Adria LEIGH Unavailable Unavailable Chadwick, L Adria LEIGH Unavailable Unavailable Chadwick, L Adria LEIGH Unavailable Unavailable Chadwick, L Adria LEIGH Unavailable Unavailable Chadwick, L Adria LEIGH Unavailable Unavailable Chadwick, L Adria LEIGH Unavailable Unavailable Chadwick, L Adria Unavailable Unavailable Chadwick, L Adria LEIGH Unavailable Unavailable Chadwick, L Adria LEIGH Unavailable Unavailable NON, PHYSICIAN STAFF Unavailable Unavailable Re-disclosure Warning The records that you are about to access may contain information from federally-assisted alcohol or drug abuse programs. If such information is present, then the following federally mandated warning applies: This information has been disclosed to you from records protected by federal confidentiality rules (42 CFR part 2). The federal rules prohibit you from making any further disclosure of this information unless further disclosure is expressly permitted by the written consent of the person to whom it pertains or as otherwise permitted by 42 CFR part 2. A general authorization for the release of medical or other information is NOT sufficient for this purpose. The Federal rules restrict any use of the information to criminally investigate or prosecute any alcohol or drug abuse patient.The records that you are about to access may contain highly sensitive health information, the redisclosure of which is protected by Article 27-F of the [facility] Public Health law. If you continue you may have access to information: Regarding HIV / AIDS; Provided by facilities licensed or operated by the [facility] Office of Mental Health; or Provided by the [facility] Office for People With Developmental Disabilities. If such information is present, then the following [facility] mandated warning applies: This information has been disclosed to you from confidential records which are protected by state law. State law prohibits you from making any further disclosure of this information without the specific written consent of the person to whom it pertains, or as otherwise permitted by law. Any unauthorized further disclosure in violation of state law may result in a fine or fpc sentence or both. A general authorization for the release of medical or other information is NOT sufficient authorization for further disc losure. Encounters Encounter Providers Location Date Indications Data Source(s ) Outpatient Attender: ISHA ORTIZ 05/03/2021 12:00:00 AM E [facility] Outpatient Attender: Venkatesh THOMAS [facility] 04/12/2021 01:45:00 PM EDT [facility] Outpatient Attender: ISHA ORTIZ [id number] 04/12/2021 12:00:0 0 AM EDT Bipolar disorder, unspecified [facility] Bipolar disorder, unspecified Office Visit Attender: Adria Chadwick MD Physical Therapy 2020 01:45:00 PM EDT [facility] Outpatient Attender: Shae Magdaleno 04/04/2021 04:00:00 PM [facility] Outpatient Attender: Shae Magdaleno 04/04/2021 04:00:00 PM [facility] Outpatient Attender: ISHA ORTIZ 03/29/2021 12:00:00 AM E [facility] Outpatient Attender: ISHA [id number] 03/15/2021 12:00:0 0 AM EDT Attention-deficit hyperactivity disorder, predominantly inattentive type [facility] Attention-deficit hyperactivity disorder , predominantly inattentive type Outpatient Attender: Shae Magdaleno 03/07/2021 03:50:00 PM EDT [facility] Outpatient Attender: ISHA ORTIZ [id number] 03/01/2021 12:00:0 0 AM EDT Panic disorder (episodic paroxysmal anxiety) [facility] Panic disorder (episodic paroxysmal anxi ety) Outpatient REPLACED BY [facility] 02/28/2021 12:00:00 AM EDT eCW1 ([facility]) Outpatient Attender: ATTILA FRANCO DO [facility] 02/27/2021 09:40:00 AM EDT MEDENT ([facility]) Outpatient Attender: Shae Magdaleno 02/21/2021 04:00:00 PM [facility] Office Visit Attender: Adria Chadwick MD Physical Therapy 2020 03:30:00 PM EDT MED[facility] ([facility] ) Outpatient Attender: Adria Chadwcik MD 02/03/2021 02:50:02 PM EDT [facility] [place] [facility] ( [facility] Healthcare facility) Attender: Adria Chadwick MD 02/03/2021 01:49:00 PM EDT - 02/04/2021 01:15:00 PM EDT [facility] Outpatient Attender: Adria Chadwick MDAdmitter: Adria Chadwick MD 02/03/2021 01:49:00 PM EDT - 02/04/2021 01:15:00 PM EDT RIGHT L5/S1 DISC HERNIATION, M51.26 [facility] RIGHT L5/S1 DISC HERNIATION, M51.26 Patient discharged. Outpatient Attender: Shae Magdaleno 01/31/2021 04:00:00 PM [facility] Outpatient Attender: Shae Magdaleno 01/24/2021 04:02:00 PM EDT [facility] Outpatient Attender: Venkatesh THOMAS [facility] 01/24/2021 08:00:00 AM EDT MEDENT ([facility]) Outpatient Attender: Adria Chadwick MD Physical Therapy 01/20/2021 0 2:45:00 PM EDT MEDENT ([facility]) Outpatient Attender: VENKATESH AVALOS PAConsultant: STAFF NON 01/18/2021 07:31:00 AM EDT - 01/18/2021 08:31:[address] [facility] Outpatient Attender: Shae Magdaleno 01/17/2021 04:00:00 PM [facility] Outpatient Attender: VENKATESH THOMAS Physical Therapy 01/16/2021 08:45:00 AM EDT MEDENT ([facility]) Outpatient Attender: Dee THOMAS 021 11:56:44 AM EDT - 01/12/2021 01:54:32 PM EDT [facility]uTap ([facility] ) Outpatient Attender: IZZY AHN 01/10/2021 04:00: 00 PM [facility] Outpatient Attender: Shae Rasta 01/03/2021 04:00:00 PM [facility] Outpatient REPLACED BY [facility] 01/03/2021 12:00:00 AM EDT eCW1 ([facility]) Outpatient Attender: Venkatesh THOMAS [facility] 12/29/2020 02:40:00 PM EDT MEDENT ([facility]) Outpatient Attender: Shae Magdaleno 12/27/2020 04:26:00 PM [facility] Outpatient Attender: IZZY AHN 12/20/2020 11:42: 00 AM [facility] Outpatient Attender: Shae Magdaleno 12/13/2020 04:00:00 PM [facility] Outpatient Attender: IZZY AHN 11/29/2020 06:32: 00 PM [facility] Outpatient Attender: Shae Magdaleno 11/29/2020 04:00:00 PM [facility] Outpatient Attender: Shae Magdaleno 11/17/2020 01:00:00 PM [facility] Outpatient Attender: Shae Magdaleno 10/21/2020 10:00:00 AM [facility] Outpatient Attender: Venkatesh THOMAS [facility] 10/14/2020 08:00:00 AM EDT MEDENT ([facility]) Outpatient Attender: Venkatesh THOMAS [facility] 09/16/2020 01:15:00 PM EST MEDENT ([facility]) Outpatient Attender: ATTILA FRANCO DO [facility] 09/02/2020 07:40:00 AM EST MEDENT ([facility]) Outpatient Attender: Venkatesh THOMAS [facility] 08/10/2020 01:00:00 PM EST MEDENT ([facility]) Outpatient Attender: ABHISHEK THOMAS [facility] 07/29/2020 02:15:00 PM EST MEDENT ([facility]) Immunizations Vaccine Date Status Description Data Source(s) COVID-19 VACCINE Moderna 09/01/2020 12:00:00 AM EST completed [facility] Vaccine Series Complete: YESThis Data wa s Submitted to [facility] Via [employer]. COVID-19 VACCINE Moderna 08/04/2020 12:00:00 AM EST completed [facility] Vaccine Series Complete: NOThis Data was Submitted to [facility] Via [employer]. Medications Medication Brand Name Start Date Product Form Dose Route Admi nistrative Instructions Pharmacy Instructions Status Indications Reaction Description Data Source(s) lamotrigine 200 MG Oral Tablet [Lamictal] Lamictal 04/12/2021 1 2:00:00 AM EDT active MEDENT ([facility]) Lorazepam 0.5 MG Oral Tablet LORazepam 0.5 MG Oral Tab let (Ativan) LORazepam 0.5 MG Oral Tablet (Ativan) 03/15/2021 12:00:00 AM EDT 0.5 mg Oral active Panic disorder Take 1 tablet by mouth daily as needed for Anxiety (panic attacks), Max Daily Dose: 0.5 mg [facility] Panic disorder Guanfacine 1 MG Oral Tablet guanFACINE HCl 1 MG Oral T ablet (TENEX) guanFACINE HCl 1 MG Oral Tablet (TENEX) 03/15/2021 12:00:00 AM EDT 1 mg Oral active ADHD (attention deficit hyperactivity disorder), inattentive type Take 1 tablet by mouth nightly [facility] ADHD (attention deficit hyperactivity di sorder), inattentive type Prazosin 1 MG Oral Capsule Prazosin HCl 1 MG Oral Caps ule (MINIPRESS) Prazosin HCl 1 MG Oral Capsule (MINIPRESS) 03/01/2021 12:00:00 AM EDT 1 mg Oral active Nightmare Take 1 capsule by mouth nightly [facility] Nightmare Lorazepam 0.5 MG Oral Tablet LORazepam 0.5 MG Oral Tab let (Ativan) LORazepam 0.5 MG Oral Tablet (Ativan) 03/01/2021 12:00:00 AM EDT 0.5 mg Oral aborted Panic disorder Take 1 tablet by mouth daily as needed for Anxiety (panic attacks), Max Daily Dose: 0.5 mg [facility] Panic disorder Ketoconazole 20 MG/ML Topical Cream Ketoconazole 02/27/2021 12:00:00 AM EDT active MEDENT ([facility]) vilazodone hydrochloride 40 MG Oral Tablet [Viibryd] V iibryd 40 MG Viibryd 40 MG 02/21/2021 12:00:00 AM EDT 1.0 {tablet_with_food} active Viibryd 40 MG eCW1 ([facility]) Lorazepam 0.5 MG Oral Tablet [Ativan] Ativan 02/02/2021 12:00:00 AM EDT ORAL completed MEDENT ([facility]) Acetaminophen 325 MG / Oxycodone Hydrochloride 5 MG Or al Tablet Oxycodone-Acetaminophen 01/25/2021 12:00:00 AM EDT ORAL active MEDENT ([facility] ) chlorhexidine gluconate 40 MG/ML Medicated Liquid Soap [Hibi clens] Hibiclens 01/20/2021 12:00:00 AM EDT active MEDENT ([facility] ) Mupirocin 0.02 MG/MG Topical Ointment Mupirocin 01/20/2021 12:00:00 AM EDT active MEDENT ([facility] ) tizanidine 4 MG Oral Tablet Tizanidine HCL 01/16/2021 12:00:00 AM EDT ORAL active MEDENT ([facility] ) Prednisone 20 MG Oral Tablet Prednisone 12/29/2020 12:00:00 AM EDT ORAL completed MEDENT ([facility]) tramadol hydrochloride 50 MG Oral Tablet Tramadol HCL 12/29/2020 12:00:00 AM EDT ORAL active MEDENT ([facility]) tizanidine 4 MG Oral Capsule Tizanidine HCL 12/29/2020 12:00:00 AM EDT ORAL active MEDENT ([facility]) vilazodone hydrochloride 10 MG Oral Tablet [Viibryd] V iibryd 10 MG Viibryd 10 MG 12/20/2020 12:00:00 AM EDT 1.0 {tablet_with_food} active Viibryd 10 MG eCW1 ([facility]) vilazodone hydrochloride 20 MG Oral Tablet [Viibryd] V iibryd 20 MG Viibryd 20 MG 12/20/2020 12:00:00 AM EDT 1.0 {tablet_with_food} active Viibryd 20 MG eCW1 ([facility]) atomoxetine 40 MG Oral Capsule Atomoxetine HCl 40 MG Atomoxe nikita HCl 40 MG 12/20/2020 12:00:00 AM EDT 1.0 {capsule_in_the_morning} active Atomoxetine HCl 40 MG eCW1 ([facility]) vilazodone hydrochloride 10 MG Oral Tablet [Viibryd] V iibryd 10 MG Viibryd 10 MG 12/20/2020 12:00:00 AM EDT 1.0 {tablet_with_food} active Viibryd 10 MG eCW1 ([facility]) atomoxetine 40 MG Oral Capsule Atomoxetine HCl 40 MG Atomoxe nikita HCl 40 MG 12/20/2020 12:00:00 AM EDT 1.0 {capsule_in_the_morning} active Atomoxetine HCl 40 MG eCW1 ([facility]) vilazodone hydrochloride 20 MG Oral Tablet [Viibryd] V iibryd 20 MG Viibryd 20 MG 12/20/2020 12:00:00 AM EDT 1.0 {tablet_with_food} active Viibryd 20 MG eCW1 ([facility]) aripiprazole 5 MG Oral Tablet ARIPiprazole 5 MG ARIPiprazole 5 MG 11/29/2020 12:00:00 AM EDT 1.0 {tablet} active AR IPiprazole 5 MG eCW1 ([facility]) aripiprazole 5 MG Oral Tablet ARIPiprazole 5 MG ARIPiprazole 5 MG 11/29/2020 12:00:00 AM EDT 1.0 {tablet} active AR IPiprazole 5 MG eCW1 ([facility]) Lamotrigine Starter Kit-Callahan Lamotrigine Starter Kit-Orang e 10/17/2020 12:00:00 AM EDT completed MEDENT ([facility]) lamotrigine 100 MG Oral Tablet [Lamictal] Lamictal 10/14/2020 1 2:00:00 AM EDT ORAL completed MEDENT ([facility]) Lamictal Starter/Not Taking Carbamazepine Lamictal Sta rter/Not Taking Carbamazepine 09/16/2020 12:00:00 AM EST completed MEDENT ([facility]) Ssf-Gq-Zeodwpebp Evb-Hk-Klpbqkumu 09/02/2020 12:00:00 AM EST ORAL active MEDENT ([facility]) Lorazepam 0.5 MG Oral Tablet [Ativan] Ativan 08/10/2020 12:00:00 AM EST ORAL completed MEDENT ([facility]) Dicyclomine Hydrochloride 10 MG Oral Capsule Dicyclomine HCL 08/10/2020 12:00:00 AM EST ORAL active MEDENT ([facility]) atomoxetine 40 MG Oral Capsule Atomoxetine HCl 40 MG O ral Capsule (STRATTERA) Atomoxetine HCl 40 MG Oral Capsule (STRATTERA) 40 mg Oral aborted Take 40 mg by mouth daily [facility] Insurance Providers Payer name Policy type / Coverage type Policy ID Covered democrat ID Covered democrat's relationship to tadeo Policy Tadeo Plan Information [facility] [id number] FA2 [id number] Self [id number] Self [id number] [facility] - O/P UNAVAILABLE UNAVAILABLE [facility] [id number] [id number] [facility] WPS 0 CHILD 0 [facility] WPS [id number] CHILD [id number] [employer] [place] PPO 302/[phone] [id number] SP [id number] [facility] [id number] P [id number] [facility] - O/P [id number] Problems, Conditions, and Diagnoses Code Display Name Description Problem Type Effective Dates Data Source(s) F90.0 Attention-deficit hyperactivity disorder , 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, predominantly inattentive type Diagnosis 04/13/2021 08:39:59 AM [facility] F41.0 Panic disorder [episodic paroxysmal anxi ety] Panic disorder (episodic paroxysmal anxiety) Diagnosis 04/13/2021 08:39:59 AM EDT [facility] F31.9 Bipolar disorder, unspecified Bipolar disorder, unspec ified Diagnosis 04/13/2021 08:39:59 AM T [facility] Z53.29 Procedure and treatment not carried out because of patient's decision for other reasons PROC/TRTMT NOT CRD OUT BEC PT DECISION FOR OTH REASONS Diagn osis 04/04/2021 04:00:00 PM [facility] F90.0 Attention-deficit hyperactivity disorder , predominantly inattentive type ATTN-DEFCT HYPERACTIVITY DISORDER, PREDOM INATTENT Diagnosis 04:00:00 PM [facility] F32.9 Major depressive disorder, single episod e, unspecified MAJOR DEPRESSIVE DISORDER, SINGLE EPISODE, UNSPECI Diagnosis 04/04/2021 04:00:00 PM [facility] F41.9 Anxiety disorder, unspecified ANXIETY DISORDER, UNSPEC IFIED Diagnosis 04/04/2021 04:00:00 PM [facility] 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 F39 Unspecified mood [affective] disorder UNSPECIFIE D MOOD [AFFECTIVE] DISORDER Diagnosis 01/10/2021 04:00:00 PM [facility] F90.0 [id number] Attention deficit hy peractivity disorder (ADHD), predominantly inattentive type Problem 12/20/2020 12:00:00 AM EDT eCW1 ([facility]) F39 [id number] Unspecified mood [affective] disorder Pro blem 11/29/2020 12:00:00 AM EDT eCW1 ([facility]) F41.9 [id number] Anxiety Problem 10/21/2020 12:00:00 AM ED T eCW1 ([facility]) F32.9 [id number] Depression, unspecified depression type P roblem 10/21/2020 12:00:00 AM EDT eCW1 ([facility]) E28.2 Polycystic ovary syndrome Polycystic ovary syndrome Pr oblem 10/14/2020 12:00:00 AM EDT MEDENT ([facility]) F43.10 Posttraumatic stress disorder Posttraumatic stress dis order Problem 10/14/2020 12:00:00 AM EDT MEDENT ([facility]) 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 of bypass of stom ach Problem 10/14/2020 12:00:00 AM EDT MEDENT ([facility]) F31.9 Bipolar disorder Bipolar disorder Problem 09/16/2020 12 :00:00 AM EST MEDENT ([facility]) [id number] Pure hypercholesterolemia Pure hypercholesterolemia Pr oblem 07/29/2020 12:00:00 AM EST MEDENT ([facility]) Surgeries/Procedures Procedure Description Date Indications Data Source(s) OFFICE OUTPATIENT VISIT 15 MINUTES 04/12/2021 12:00:00 AM EDT MED[facility] ([facility]) OFFICE OUTPATIENT VISIT 15 MINUTES 02/27/2021 12:00:00 AM EDT [facility] ([facility]) Laminectomy One Interspace, Lumbar 02/03/2021 12:00:00 AM EDT MED[facility] ([facility] ) Laminectomy One Interspace, Lumbar 02/03/2021 12:00:00 AM EDT [facility] ([facility] ) OFFICE OUTPATIENT VISIT 25 MINUTES 01/24/2021 12:00:00 AM EDT MED[facility] ([facility]) OFFICE OUTPATIENT VISIT 25 MINUTES 01/20/2021 12:00:00 AM EDT MED[facility] ([facility] ) OFFICE OUTPATIENT NEW 45 MINUTES 01/16/2021 12:00:00 A M EDT MED[facility] ([facility]) OFFICE OUTPATIENT VISIT 15 MINUTES 12/29/2020 12:00:00 AM EDT MED[facility] ([facility]) OFFICE OUTPATIENT VISIT 25 MINUTES 10/14/2020 12:00:00 AM EDT [facility] ([facility]) OFFICE OUTPATIENT VISIT 25 MINUTES 09/16/2020 12:00:00 AM EST [facility] ([facility]) OFFICE OUTPATIENT VISIT 10 MINUTES 09/02/2020 12:00:00 AM EST [facility] ([facility]) PERIODIC PREVENTIVE MED EST PATIENT 18-39 YRS 09/02/19 12:00:00 AM EST [facility] ([facility]) OFFICE OUTPATIENT NEW 45 MINUTES 08/10/2020 12:00:00 A M EST MEDENT ([facility]) Results ID Date Data Source [id number] 04/23/2021 06:00:49 PM EDT [facility] Name Value Range Interpretation Code Description Data Marcella rce(s) Supporting Document(s) Progress Note [facility] XCIRHi0tRhCEUyLr99/JBZteXNNwm6IgPJqyATf3EMipCUMwL8BtYQQ1eW1vYXM6JGxDDxBmSrDmKMK7 m [file] f1W7GyTUS1NQ2bWMIDBq3+JYmwlMEwbOfrTAHAGuW9GHAPPfUeKT3XQXy= ID Date Data Source [id number] 03/20/2021 07:30:48 PM EDT [facility] Name Value Range Interpretation Code Description Data Marcella rce(s) Supporting Document(s) Progress Note [facility] ALIWVq2xQwOJOxRa60/QKVhiYSMre1HjWZveYEn9FQiwEFBjT9PfJTW8nZ6pRJZ0IWiUSfClNgMnKRYt lbm [file] AgICAgICAgICAgICAgICAgICAgICAgICAgICAgICAg ICAgICAgICAgICAgICAgICAgICAgICAgICAgICAgICAgICAgICAgICAgDQogICAgICAgICAgICAgICAg ICAgICAgICAgICAgICAgICAgICAgICAgICAgICAgICAgICAgICAgICAgICAgICAgICAgICAgICAgICAg ICAgICAgICAgICAgICAgICAgICAgICAgDQogICAgIC AgICAgICAgICAgICAgICAgICAgICAgICAgICAgICAgICAgICAgICAgICAgICAgICAgICAgICAgICAgIC AgICAgICAgICAgICAgICAgICAgICAgICAgICAgICAgICAgDQogICAgICAgICAgICAgICAgICAgICAgIC AgICAgICAgICAgICAgICAgICAgICAgICAgICAgICAg ICAgICAgICAgICAgICAgICAgICAgICAgICAgICAgICAgICAgICAgICAgICAgDQogICAgICAgICAgICAg ICAgICAgICAgICAgICAgICAgICAgICAgICAgICAgICAgICAgICAgICAgICAgICAgICAgICAgICAgICAg ICAgICAgICAgICAgICAgICAgICAgICAgICAgDQogIC AgICAgICAgICAgICAgICAgICAgICAgICAgICAgICAgICAgICAgICAgICAgICAgICAgICAgICAgICAgIC AgICAgICAgICAgICAgICAgICAgICAgICAgICAgICAgICAgICAgDQogICAgICAgICAgICAgICAgICAgIC AgICAgICAgICAgICAgICAgICAgICAgICAgICAgICAg ICAgICAgICAgICAgICAgICAgICAgICAgICAgICAgICAgICAgICAgICAgICAgICAgDQogICAgICAgICAg ICAgICAgICAgICAgICAgICAgICAgICAgICAgICAgICAgICAgICAgICAgICAgICAgICAgICAgICAgICAg ICAgICAgICAgICAgICAgICAgICAgICAgICAgICAgDQ ogICAgICAgICAgICAgICAgICAgICAgICAgICAgICAgICAgICAgICAgICAgICAgICAgICAgICAgICAgIC AgICAgICAgICAgICAgICAgICAgICAgICAgICAgICAgICAgICAgICAgDQogICAgICAgICAgICAgICAgIC AgICAgICAgICAgICAgICAgICAgICAgICAgICAgICAg MVNaYLQzBNSlQOBwYADnSCMfJQXqRXStOZPcWFWkEVAaUFQxVILtSKJsDXDkFGPaITYpTFx2L4mgQNOm FCHqZY5oMHq3Hl4+ZVuGPoYmUYH1veNywT6FDL4lf1SwOKveOENtd0YsHMb8QN1IXYQcPPlvTQ1FYLwt oi8OVMAsYWSqlSYUk5asNtFxXWH4FPWkBuanTY3GSX KmB2ufthZrBIJeHCNQIJ8SCyYkI3QboQ07JTPVKl8+CQtfzeCcPmkWGjB4EHKso5PbYHu2QC0PTEUdQk gii5LqDTDpWFBXEJdjFN4QGTR4OKF2BJUpYj2POVYfN544svTyPW4HDp0YGgNbFT8qej1IVOOyXCFiCv bRHtu3BEogUL6QkBZzTLaSpx3necDazuAWt4LydkKt mGCXzJHkCX0vTobqqmnlMO5UARO8VVyyJK9aPPQfKTO2HlVfLIUTTR6YZZCtDPLpoHYrWYLpROMYTO6G HLamCQT1WTTabvRxjFQwASstKK9ZLDOjuuKqSZIuYLLJWMr+Uw9KVU1oh7GrLMviQbJuJE8naq8AUQiH MtSaE6Q3cGOgF6M2VKfxTv3JCBXdKLOwUNXaESEBRY vuVF6BNR9hciK6KW5UtWVwCVIeJFGnuLKnAAk1K51tfFSkYRigCG6RKLJ+Alondra+Ut6YGPHkAVVgRNQyNk QxIQDPNgIdX4GpW7ORi7UyU7WfKA25wIxiiwSsTHbjWR1QAZ2tGSUuZXKLGC7KiUIecA3tpsXeTPGqCR UNXmZkB25jeZEfZKGcDLQgTFDtFk7JPHMvK2OsssVr qYilhjFvLRTfQAGEWM6XOAezbqFnuZWyoFjiGS84yDobYK6IMy3VWyWnDG9fml4JbIVaGk9CTJRbPb1V LUQlSSTjPGMrHUF7XPTfOwViISagYQAgNCBwQDK4LBEsUZEmJP2FTpQlXHWaJAUoIrJgXGEaFIPaxe8S LIHfUWQdFNf3OrSwKYWuPQRdQRjhMAMsRXCvBZQ9NP SxYXUiOS3ZGoWqVOIzJNQgIpQqNXFqIJYigz8PMREwELDpZTDaOrSmXVWfWOSpYKylKIZfYEBhAex7GL IwXNGyKO1LHyCbYNRrUZQ5TFFaPLZzCSJbql2YATFwYGBeQxn5RNYtXMVpICFoQNnvYMZeCBLxThG7VW YbXJBmHA5DGhRnUCXsAOI7TvHvBQIeMRUbze5MMNEo BJAsLWWuPTMlVOAfDEGhAThcXTAoSAF4YTLmYFFwWIXlJV1FPeDcPFVjCAL5AYSnHUPmJTWnns5LBXDa RVSdLfOtUTDuUSGjVHVlLRjjCWEkWKI0INT1FTBuIOBlYL6OXyCmOSkqJLANVtr0BVbxO9x3KZSlZe0X W5Ttn6GvQTMkRWWAEFhkLG4pwzBjPGFiOw2KN2tFUk q0VutsCvCiDRsvXuIyDdXsPIBvPWOnT9IaGOHeCJDlAW5pJNKiFUAgAMG3FLNuZEAhXAWiXwSmNsOaIJ YmPMUxO8LyPcDqTV5BSo2BFmJ8KJN4qQKbJm9HJiJmLT9KIUZGF9ZLTx== ID Date Data Source [id number] 03/08/2021 07:36:42 PM EDT [facility] Name Value Range Interpretation Code Description Data Marcella rce(s) Supporting Document(s) Progress Note [facility] MSMODu7qMzYLNrTp88/MMDrkBEPvf9IuELgsOFu5TTegKMNwU7HcQPQ2hP5pIGM5VGcKYeDjSyNwRRLb lbm [file] X6DWepIBBgKN9sBSXMNu4+PPthcGBqeMklXZWROlK2AFGOOvFxMP7BCCz= ID Date Data Source [id number] 02/04/2021 08:59:48 AM EDT [facility] Name Value Range Interpretation Code Description Data Marcella rce(s) Supporting Document(s) SODIUM 141 mmol/L (136-145) [facility] POTASSIUM 4.3 mmol/L (3.6-5.2) [facility] CHLORIDE 110 mmol/L (100-108) H [facility] CO2 24 mmol/L (22-31) [facility] ANION GAP 7 mmol/L (7-16) [facility] UREA NITROGEN 8 mg/dL (7-24) [facility] CREATININE 0.57 mg/dL (0.60-1.00) L [facility] BUN/CREAT RATIO 14.0 RATIO (10.0-20.0) [facility] GLUCOSE 93 mg/dL (70-99) [facility] CALCIUM 8.4 mg/dL (8.4-10.2) [facility] GFR >60 ml/min/1.73m2 (>59) [facility] GFR ( AMER) >60 ml/min/1.73m2 (>59) [facility] GFR INTERPRETATION [facility] --NORMAL KIDNEY FUNCTION OR MILD DISEASE - GFR >OR= 60CHRONIC KIDNEY DISEASE - GFR 15 - 59RENAL FAILURE - GFR <15 Est. GFR calculation based on the MDRDstudy equation, which assumes a steadystate for creatinine. Est. GFR should notbe used for medication dosing. ID Date Data Source [id number] 02/04/2021 08:46:21 AM EDT [facility] Name Value Range Interpretation Code Description Data Marcella rce(s) Supporting Document(s) WBC 16.6 10*3/uL (4.1-11.0) H [facility] RBC 4.62 10*6/uL (4.00-5.40) [facility] HGB 12.4 g/dL (12.0-16.0) [facility] HCT 38.6 % (36.0-47.0) [facility] PERFORMED AT [address] [facility] [address] MCV 83.6 fL (80.0-95.0) [facility] MCH 26.8 pg (27.0-32.0) L [facility] MCHC 32.0 g/dL (32.0-36.0) [facility] RDW 14.6 % (10.5-14.5) H [facility] PLT 307 10*3/uL (150-450) [facility] MPV 9.6 fL (7.1-10.7) [facility] ID Date Data Source [id number] 02/11/2021 07:21:00 PM EDT [facility] [place], [place] [address]OEPSRLG NAME: NELLY KAPLANDATE OF : 1995REPORT: OPERATIONPATIENT NUMBER: [id number] STATUS: SDMEDICAL RECORD NUMBER: [id number] OF ADMISSION: 1DATE OF DISCHARGE:ROOM: 00DATE OF PROCEDURE: 1PREOPERATIVE DIAGNOSIS: L5-S1 disk herniation to the right producing rightlower extremity radiculopathy.POSTOPERATIVE DIAGNOSIS: L5-S1 disk herniation to the right producingright lower extremity radiculopathy.PROCEDURE PERFORMED: Microdiskectomy, right L5-S1.SURGEON: Adria Chadwick MDASSISTANT: LUZ MARINA LopezTHESIA: General.SPECIMENS: Include large disk extrusion which was sent to pathology.ESTIMATED BLOOD LOSS: 50 mL, replaced wit h crystalloid.COMPLICATIONS: No complications.INDICATIONS: Intractable discomfort down the right lower extremity. MRIevidence of a large disc herniation at L5-S1 to the right. The patientwith sensory, motor, and reflex deficit and intractable pain, has electedfor operative intervention. Consent reviewed in detail with the patientincluding a jovani discussion of the pathology involved, the procedureproposed, alternatives including doing nothing and risks including notlimited to pain, failure, infection, bleeding, blood loss, nerve injury,need for additional surgery, and other issues. The patient agrees toproceed.PROCEDURE: Identified in the holding area, site and side verified, broughtto the operating room. Once anesthesia was administered, she waspositioned in the prone position on the Sushil frame Chinedu table forexposure of the lumbar spine, knees slightly flexed, Sushil elevated. OnceI and the bricklayer tender were comfortable with the patient's positioning, shewas then sterilely prepped and draped in usual fashion. Time-out wasaccomplished. I stood on the patient's right. Mr. Avalos stood on thepatient's left. Iliac crest was palpated as bony landmark, incisionoutlined with a marking pen, infiltrated with 1 percent lidocaine withepinephrine, mixed with 0.25 percent Marcaine. The incision was made witha 10-blade knife, developed down through skin and subcuticular tissues tothe posterior lumbar fascia. L5 spinous process was palpated and I sharplyopened the posterior lumbar fascia to the right. The dissection continueddown the L5 lamina, exposing the L5 lamina. Divot was d rilled in the D0hbbyug and a Hernandez-Landon was placed in the divot. Cross-table lateralfluoroscopy was utilized to verify level. Once this was accomplished, wefurther exposed the L5-S1 level on the right. We placed the Versa- Tracretractor, 75 mm blades. My loops were removed, my headlamp removed,operating microscope had been draped, brought in for additional portions ofthe procedure. Mr. Avalos looked through oculars on the left, I throughthe oculars on the right, and we implemented a right unilateral laminotomyusing the high-speed bur to the bare area of 5 protecting the facet complexand extending to the proximal lamina of S1, elevated ligamentum flavum atL5 using Zuly curettes and then removed using number 2 and 3 Kerrisonsexposing the thecal sac and traversing S1 nerve root, which were quitesignificantly displaced medially due to the large disk extrusion. Next, wefurther reflected gently the nerve root medially and appreciated thesubligamentous extrusion, which seemed to be interestingly quite fibrous. It was freed and removed using pituitaries in a piecemeal fashion. I didsent this to pathology because the disk consistency was somewhat morefibrotic than typical. Next, bipolar cautery was utilized for hemostasis. I entered the disk space with the Diaz pituitary. No additional friabledisk material appreciated. We palpated the anterior aspect of the thecalsac using a Hernandez- Landon and made sure there were no additional removalfragments. Next, irrigation was accomplished, retractor was removed. Noactive bleeding was appreciated. Posterior lumbar fascia wasreapproximated with interrupted stitch. Rj's fascia and dermisreapproximated with interrupted stitch. Prineo dressing utilized on skin. Additionally, just prior to the closure, we did use further localanesthetic, 0.25 percent Marcaine without epinephrine, 50:50 mixture with 1percent lidocaine with epinephrine, using 10 mL. The patient waslog-rolled to hospital bed, extubated, moved to recovery room in critical access hospital.Mr. Avalos participated in the entirety of this case in the capacity offirst certified physical therapist assistant.DICTATED BY: Adria Chadwick, MDDictated: 02/03/2021 22:52DT: 02/03/2021 23:02Job #: [id number]: [facility] computer generated reports are not confirmed orauthenticated unless they are signed by the providerElectronically Authenticated by:ADRIA CHADWICK MD On 02/11/2021 07:21 PM EDT Name Value Range Interpretation Code Description Data Marcella rce(s) Supporting Document(s) ID Date Data Source [id number] 02/03/2021 03:37:29 PM EDT Marisela Veras SPEC EXP DATE 02/06/2021ATI ENT ABO/Rh A POSITIVEANTIBODY SCREEN NEGATIVETESTING SITE PERFORMED AT [address] [place] [address] Name Value Range Interpretation Code Description Data Marcella rce(s) Supporting Document(s) ID Date Data Source [id number] 02/03/2021 03:06:12 PM EDT [facility] Name Value Range Interpretation Code Description Data Marcella rce(s) Supporting Document(s) HCG, QUAL. SERUM (NEG) [facility] ID Date Data Source [id number] 02/03/2021 02:50:01 PM EDT [facility] Name Value Range Interpretation Code Description Data Marcella rce(s) Supporting Document(s) WBC 10.8 10*3/uL (4.1-11.0) [facility] RBC 4.68 10*6/uL (4.00-5.40) [facility] HGB 12.7 g/dL (12.0-16.0) [facility] HCT 38.9 % (36.0-47.0) [facility] PERFORMED AT [address] [facility] [address] MCV 83.3 fL (80.0-95.0) [facility] MCH 27.2 pg (27.0-32.0) [facility] MCHC 32.6 g/dL (32.0-36.0) [facility] RDW 14.3 % (10.5-14.5) [facility] PLT 320 10*3/uL (150-450) [facility] MPV 9.0 fL (7.1-10.7) [facility] ID Date Data Source [id number] 02/06/2021 04:05:56 PM EDT [facility] [id number]# SURGICAL PATHOLOGY REPORTPatient Name:NELLY KAPLANDOB:1995Received:02/06/2021ccession #:[id number](s) Received: A: L5 and S1 discClinical Diagnosis and History: Right L5-S1 disc herniation. DIAGNOSIS:DISC, L5-S1 FRAGMENTS OF FIBROCARTILAGINOUS TISSUE, CONSISTENT WITH DISCCONTENTS, (GROSS ONLY). GROSS DESCRIPTION: Specimen received in formalin labeled "L5-S1 disc" is a 2.5 x 2.0 x 0.5cm aggregate of rubbery ng-marvin fibrous tissue. No sections aresubmitted. [email or web address]/sgbReported: 02/06/2021Electronically Signed Out By Latonia Foster D.O. dPath[facility] HospitalSohan[address] [place] [id number] component performed at [facility], Histopathology, [address] [place] [address], [id number].Reported at [facility], [address] [place] [address], [id number].This report may include immunohistochemical or in-situ hybridizationresults. Testing was developed and the performance characteristicsdetermined by [facility], as required byCLIA '88. The FDA has determined that approval for specific use is notnecessary for clinical use. The quality of Hematoxylin and Eosin stainsand as applicable, for all immunohistochemical and/or special stains,including positive and negative controls, were reviewed and consideredappropriate.ICD codes:A: M51.87CPT4 codes: A: 94413N Name Value Range Interpretation Code Description Data Marcella rce(s) Supporting Document(s) ID Date Data Source [id number] 01/30/2021 09:00:00 AM EDT [facility] ([facility]) Name Value Range Interpretation Code Description Data Marcella rce(s) Supporting Document(s) Coronavirus 2019 Nasopharygeal Laboratory test result [facility] ([facility]) ASSAY INFORMATION: Real Time RT-PCR NOTE: The COVID-19 assay has been cleared by the U.S. Food and Drug Administration under the Emergency Use Authorization (EUA). [facility] and [facility] are designated as high complexity laboratories by the Clinical Laboratory Improvement Amendments of 1988(CLIA) and are qualified to perform this test. Not Detected ID Date Data Source [id number] 01/30/2021 09:00:00 AM EDT [facility] ([facility]) Name Value Range Interpretation Code Description Data Marcella rce(s) Supporting Document(s) Coronavirus 2019 Nasopharygeal Laboratory test result [facility] ([facility]) ASSAY INFORMATION: Real Time RT-PCR NOTE: The COVID-19 assay has been cleared by the U.S. Food and Drug Administration under the Emergency Use Authorization (EUA). [facility] and [facility] are designated as high complexity laboratories by the Clinical Laboratory Improvement Amendments of 1988(CLIA) and are qualified to perform this test. Not Detected ID Date Data Source [id number] 01/19/2021 02:41:00 PM EDT [facility] [address] [place] [address] PHONE: [phone] FAX: [phone] Name .................. : ROSAURA VILLEGAS Acct Number.................. : [id number] ROOM. ................. : MR Number ................... : [id number] Stay type ............. : O/P Discharge Date......... ... : 01/18/21 Admit Date ......... : 01/18/21 Admit Phys .................... : ROBBIE Date of ....... : 1995 Family Phys ................... : NON STAFF Phone .................. : [phone] Age ................................ : 25 Film# .................. .:[id number] Sex ................................. : F Unsigned transcriptions are preliminary reports and do not represent a medical or legal document MRI LUMBAR SPINE W/O CONTRAST [id number] COMPLETE:01/18/21 08:53 NEGRITO [id number] Reason for Exam: DISC DEGENERATION LUMBAR REGION MRI OF THE LUMBAR SPINE WITHOUT CONTRAST: TECHNIQUE: Multisequence, multiplanar MRI of the lumbar spine is obtained without the use of intravenous contrast. COMPARISON: None available. FINDINGS: The conus medullaris terminates at the L1 vertebral body level. The vertebral bodies are homogeneous in signal and unremarkable in height. There is dessication and loss of height of the L4-5 and L5-S1 discs. There is a small central disc herniation at L4-5. There is mild ligamentous and facet hypertrophy yielding mild left-sided neuroforaminal stenosis and no significant canal or right-sided neuroforaminal stenosis. There is facet edema and this can be a source of pain. There is osteophyte disc complex at L5-S1 with a broad-based central and right lateral herniation. There is mild ligamentous and moderate facet hypertrophy and this yields moderate spinal canal stenosis. This does appear to contact and displace posteriorly the descending right S1 nerve. There is moderate facet hypertrophy and this combination yields severe right and mild left neuroforaminal stenosis. There is severe right lateral recess stenosis. There is again facet edema and this can be a further source of pain. IMPRESSION: Multilevel degenerative disc disease as described above. Electronically Reviewed and Signed By Mitesh Peterson MD , 01/19/21 14:41, AML [address] 1 of 2 [place] [address] PHONE: [phone] FAX: [phone] Name .................. : KAPLAN NELLY Acct Number.................. : [id number] ROOM. ................. : MR Number ................... : [id number] Stay type ............. : O/P Discharge Date......... ... : 01/18/21 Admit Date ......... : 01/18/21 Admit Phys .................... : ROBBIE Date of ....... : 1995 Family Phys ................... : NON STAFF Phone .................. : [phone] Age ................................ : 25 Film# .................. .:[id number] Sex ................................. : F Unsigned transcriptions are preliminary reports and do not represent a medical or legal document MRI LUMBAR SPINE W/O CONTRAST [id number] COMPLETE:01/18/21 08:53 NEGRITO [id number] Reason for Exam: DISC DEGENERATION LUMBAR REGION Transcribe Initials: COLTON , Transcribe Date: 01/18/21 19:04, Dictation Date: Copy for: ROBBIE Cortes via fax Copy for: [address] [facility] REC Page 2 of 2 Name Value Range Interpretation Code Description Data Marcella rce(s) Supporting Document(s) ID Date Data Source [id number] 12/30/2020 10:32:00 AM EDT [facility] FASTING: NOReceived: 12/30/2020 at 04:26 :00 QPT: [facility], [address] , [address] [place], [address], Chi Valenzuela MD Name Value Range Interpretation Code Description Data Marcella rce(s) Supporting Document(s) Varicella zoster virus IgG Ab [Units/volume] in Serum by Immunoassay 184.90 index Normal (applies to non-numeric results) [facility] Index Interpretatio n --------- <135.00 Negative - Antibody not detected 135.00 - 164.99 Equivocal > or = 165.00 Positive - Antibody detected A positive result indicates that the patient has antibody to VZV but does not differentiate between an active or past infection. The clinical d iagnosis must be interpreted in conjunction with the clinical signs and symptoms of the patient. This assay reliably measures immunity due to previous infection but may not be sensitive enough to detect antibodies induced by vaccination. Thus, a negative result in a vaccinated individual does not necessarily indicate susceptibility to VZV infection. A more sensitive test for vaccination-induced immunity is Varicella Zoster Virus Antibody Immunity Screen, ACIF. ID Date Data Source [id number] 12/28/2020 12:36:00 PM EDT [facility] FASTING: UNKNOWNReceived: 12/28/2020 at 08:12:00 QPT: [facility], [address], [address] [place], [address], Chi Valenzuela MD Received: 12/28/2020 at 08:12:00 QPT : [facility], [address] [place], [address], Chi Valenzuela MD Name Value Range Interpretation Code Description Data Marcella rce(s) Supporting Document(s) Measles virus IgG Ab [Units/volume] in Serum by Immunoassay 134. 00 AU/mL Normal (applies to non-numeric results) [facility] AU/mL Interpretation----- <13.50 Not consistent with ciqovpgb35.50-16.49 Equivocal>16.49 Consistent with immunityThe presence of measles IgG suggests immunization orpast or current infection with measles virus.For additional information, please refer tohttp://education.Cignis/faq/SXH440(This link is being provided for informational/educational purposes only.) Mumps virus IgG Ab [Units/volume] in Serum by Immunoassay 196.00 AU/mL Normal (applies to non-numeric results) [facility] AU/mL Interpretation------- <9.00 Not consistent with immunity9.00-10.99 Equivocal>10.99 Consistent with immunityThe presence of mumps IgG antibody suggests immunizationor past or current infection with mumps virus. Rubella virus IgG Ab [Units/volume] in Serum or Plasma by Immunoassay 2.21 Index Normal (applies to non-numeric results) [employer] Index Interpretation - ---- <0.90 Not consistent with immunity 0.90-0.99 Equivocal > or = 1.00 Consistent with immunityThe presence of rubella IgG antibody suggestsimmunization or past or current infection withrubella virus. ID Date Data Source [id number] 12/28/2020 12:36:00 PM EDT [facility] FASTING: UNKNOWNReceived: 12/28/2020 at 08:12:00 QPT: [facility], [address], [address] [place], [address], Chi Valenzuela MD Received: 12/28/2020 at 08:12:00 QPT : [facility], [address] [facility], [address] [place], [address], Chi Valenzuela MD Name Value Range Interpretation Code Description Data Marcella rce(s) Supporting Document(s) Hepatitis B virus surface Ab [Units/volume] in Serum or Plas ma by Immunoassay > OR = 10 Below low normal [facility] Patient does not have immunity to hepati tis B virus.For additional information, please refer tohttp://education.Prelert/faq/QTJ715(This link is being provided for informational/educational purposes only). ID Date Data Source [id number] 10/27/2020 10:42:00 AM EDT [facility] ([facility]) Name Value Range Interpretation Code Description Data Marcella rce(s) Supporting Document(s) Wet Prep Laboratory test result [facility] ([facility]) Reference Interval: Negative for Clue Ce lls, Trichomonas vaginalis or Yeast like organisms. WET PREP RESULT FEW EPITHELIAL CELLS PRESENT FEW WBC MODERATE RBC FEW LONG RODS PRESENT FEW SHORT RODS PRESENT FEW CLUE CELLS PRESENT ID Date Data Source [id number] 10/27/2020 10:42:00 AM EDT [facility] ([facility]) Name Value Range Interpretation Code Description Data Marcella rce(s) Supporting Document(s) Laboratory test finding (navigational concept) Laboratory test result [facility]) Reference Interval: Negative for Clue Ce lls, Trichomonas vaginalis or Yeast like organisms. WET PREP RESULT FEW EPITHELIAL CELLS PRESENT FEW WBC MODERATE RBC FEW LONG RODS PRESENT FEW SHORT RODS PRESENT FEW CLUE CELLS PRESENT ID Date Data Source [id number] 10/27/2020 09:13:00 AM EDT [facility]) Name Value Range Interpretation Code Description Data Marcella rce(s) Supporting Document(s) Choriogonadotropin.beta subunit [Moles/volume] in Seru m or Plasma Laboratory test result Normal (applies to non-numeric results) [facility]) <content>QUANTITATIVE RESULT QU ALITATIVE INTERPRETATION</content>
<content> </content>
<content><5.0 IU/L NEGATIVE</content>
<content>5.0 - 25.0 IU/L INDETERMINATE</content>
<content>>25.0 IU/L POSITIVE</content>
<content></content> ID Date Data Source [id number] 10/27/2020 09:11:00 AM EDT [facility]) Name Value Range Interpretation Code Description Data Marcella rce(s) Supporting Document(s) Laboratory test finding (navigational concept) 41.0 % 3 8.0-51.0 Normal (applies to non-numeric results) [facility] ([facility]) Laboratory test finding (navigational concept) 138 meq/L 1 36-145 Normal (applies to non-numeric results) [facility] ([facility]) Laboratory test finding (navigational concept) 94 mg/dL 7 0-105 Normal (applies to non-numeric results) [facility] ([facility]) Laboratory test finding (navigational concept) 4.4 meq/L 3 .5-5.1 Normal (applies to non-numeric results) [facility] ([facility]) Laboratory test finding (navigational concept) 101 meq/L 9 8-109 Normal (applies to non-numeric results) [facility] ([facility]) Laboratory test finding (navigational concept) 4.8 mg/dL 4 .5-5.3 Normal (applies to non-numeric results) [facility] ([facility]) Laboratory test finding (navigational concept) 28.0 MM/L 2 3.0-27.0 Above high normal [facility] ([facility]) Laboratory test finding (navigational concept) 0.7 mg/dL 0 .6-1.3 Normal (applies to non-numeric results) [facility] ([facility]) Laboratory test finding (navigational concept) 13 mg/dL 8 -26 Normal (applies to non-numeric results) [facility] ([facility]) ID Date Data Source [id number] 10/27/2020 09:04:00 AM EDT [facility] ([facility]) Name Value Range Interpretation Code Description Data Marcella rce(s) Supporting Document(s) Lipase [Enzymatic activity/volume] in Serum or Plasma 47 U/L 73-393 Below low normal [facility] ([facility]) ID Date Data Source [id number] 10/27/2020 09:04:00 AM EDT [facility]) Name Value Range Interpretation Code Description Data Marcella rce(s) Supporting Document(s) Alt/SGPT 25 U/L 12-78 Normal (applies to non-numeric resul ts) [facility] ([facility]) Ast/Sgot 12 U/L 7-37 Normal (applies to non-numeric resul ts) [facility] ([facility]) Alkaline Phosphatase 79 U/L 45-117 Normal (applies to non-num campbell results) [facility] ([facility]) Bilirubin,Total 0.3 mg/dL 0.2-1.0 Normal (applies to non-numeric results) [facility] ([facility]) Bilirubin,Direct Laboratory test result 0.0-0.2 Normal ( applies to non-numeric results) [facility] ([facility]) Albumin 3.9 GM/DL 3.2-5.2 Normal (applies to non-numeric resul ts) [facility] ([facility]) Total Protein 7.3 GM/DL 6.4-8.2 Normal (applies to non-numeric re sults) [facility] ([facility]) Albumin/Globulin Ratio 1.1 1.2-2.2 Below low normal [facility] ([facility]) ID Date Data Source [id number] 10/27/2020 09:04:00 AM EDT [facility] ([facility]) Name Value Range Interpretation Code Description Data Marcella rce(s) Supporting Document(s) Appearance, Urine RFX Laboratory test result Above high no rmal [facility] ([facility]) PH,Urine RFX 7.0 units 5.0-9.0 Normal (applies to non-numeric res ults) [facility] ([facility]) Color, Urine RFX Laboratory test result Normal ( applies to non-numeric results) [facility] ([facility]) Specific [place] Ur Auto RFX 1.026 1.002-1.035 Nor mal (applies to non-numeric results) [facility] ([facility]) Glucose, Urine (Ua) Auto RFX Laboratory test result Normal (applies to non- numeric results) [facility] ([facility]) Protein, Urine Auto RFX Laboratory test result N ormal (applies to non-numeric results) [facility] ([facility]) Urobilinogen, Urine Auto RFX 0.2 mg/dL 0.0-2.0 Nor mal (applies to non-numeric results) [facility] ([facility]) Ketone, Urine Auto RFX Laboratory test result No rmal (applies to non-numeric results) [facility] ([facility]) Bilirubin, Urine Auto RFX Laboratory test result Normal (applies to non- numeric results) [facility] ([facility]) Nitrite, Urine Auto RFX Laboratory test result N ormal (applies to non-numeric results) [facility] ([facility]) Leukocyte Esterase Ur Auto RFX Laboratory test result Normal (applies to non- numeric results) [facility] ([facility]) RBC, Urine Auto RFX 0 /HPF 0-3 Normal (applies to non-nume pepe results) [facility] ([facility]) WBC, Urine Auto RFX 1 /HPF 0-3 Normal (applies to non-nume pepe results) [facility] ([facility]) Blood, Urine Blood RFX Laboratory test result No rmal (applies to non-numeric results) [facility] ([facility]) Squam Epithelial Cell Ur Aurfx 30 /HPF 0-6 N ormal (applies to non-numeric results) [facility] ([facility]) Bacteria, Urine Auto RFX Laboratory test result Normal (applies to non-numeric results) [facility] ([facility]) Mucus, Urine RFX Laboratory test result Normal ( applies to non-numeric results) [facility] ([facility]) Hyaline Cast, Urine Auto RFX 0 /LPF 0-1 Normal (appl ies to non-numeric results) [facility] ([facility]) ID Date Data Source [id number] 10/27/2020 09:04:00 AM EDT [facility] ([facility]) Name Value Range Interpretation Code Description Data Marcella rce(s) Supporting Document(s) Red Blood Count 4.61 10 4.00-5.40 Normal (applies to non-numeric results) [facility] ([facility]) White Blood Count 10.4 10 4.0-10.0 Above high normal [facility] ([facility]) Hematocrit 40.0 % 36.0-47.0 Normal (applies to non-numeric resul ts) [facility] ([facility]) Hemoglobin 12.7 g/dL 12.0-15.5 Normal (applies to non-numeric resul ts) [facility] ([facility]) Mean Corpuscular Volume 86.8 fl 80.0-96.0 Normal ( applies to non-numeric results) [facility] ([facility]) Mean Corpuscular Hemoglobin 27.5 pg 27.0-33.0 Norm al (applies to non-numeric results) [facility] ([facility]) Red Cell Distribution Width 13.3 % 11.5-14.5 Norm al (applies to non-numeric results) [facility] ([facility]) Mean Corpuscular HGB Conc 31.8 g/dL 32.0-36.5 Below low normal [facility] ([facility]) Platelet Count, Automated 297 10 150-450 Normal (applies to non-numeric results) [facility] ([facility]) Neutrophils % 71.7 % 36.0-66.0 Above high normal [facility] ([facility]) Eos % 3.4 % 0.0-3.0 Above high normal [facility] ([facility]) Lymph % 16.8 % 24.0-44.0 Below low normal [facility] ( [facility]) Glascock % 6.7 % 2.0-8.0 Normal (applies to non-numeric resul ts) [facility] ([facility]) Nucleated Red Blood Cell % 0.0 % 0-0 Normal (applies to n on-numeric results) [facility] ([facility]) Immature Granulocyte % 0.7 % 0-3.0 Normal (applies to non-n umeric results) [facility] ([facility]) Baso % 0.7 % 0.0-1.0 Normal (applies to non-numeric resul ts) [facility] ([facility]) Neutrophils # 7.4 10 1.5-8.5 Normal (applies to non-numeric re sults) [facility] ([facility]) Eos # 0.4 10 0.0-0.5 Normal (applies to non-numeric resul ts) [facility] ([facility]) Lymph # 1.7 10 1.5-5.0 Normal (applies to non-numeric resul ts) [facility] ([facility]) Glascock # 0.7 10 0.0-0.8 Normal (applies to non-numeric resul ts) [facility] ([facility]) Baso # 0.1 10 0.0-0.2 Normal (applies to non-numeric resul ts) [facility] ([facility]) ID Date Data Source [id number] 10/27/2020 09:04:00 AM EDT [facility] ([facility]) Name Value Range Interpretation Code Description Data Marcella rce(s) Supporting Document(s) Lipoprotein lipase [Enzymatic activity/volume] in Serum or Plasm a 47 U/L 73-393 [facility] ([facility], [facility]) ID Date Data Source [id number] 10/27/2020 09:04:00 AM EDT [facility] ([facility]) Name Value Range Interpretation Code Description Data Marcella rce(s) Supporting Document(s) Ast/Sgot 12 U/L 7-37 [facility] ([facility]) Alkaline Phosphatase 79 U/L 45-117 [facility] Alt/SGPT 25 U/L 12-78 [facility] ([facility], [facility]) Bilirubin,Direct Laboratory test result 0.0-0.2 [facility] ([facility], [facility]) Bilirubin,Total 0.3 mg/dL 0.2-1.0 [facility] ([facility] [facility] Total Protein 7.3 GM/DL 6.4-8.2 [facility] ([facility], [facility]) Albumin 3.9 GM/DL 3.2-5.2 [facility] ([facility], [facility]) Albumin/Globulin Ratio 1.1 1.2-2.2 [facility] ([facility], [facility]) ID Date Data Source [id number] 10/27/2020 09:04:00 AM EDT [facility] ([facility], [facility]) Name Value Range Interpretation Code Description Data Marcella rce(s) Supporting Document(s) Laboratory test finding (navigational concept) Laboratory test result [facility] ([facility], [facility]) Laboratory test finding (navigational concept) Laboratory test result [facility] ([facility]) Laboratory test finding (navigational concept) 1.026 1.002-1.035 [facility] ([facility], [facility]) Laboratory test finding (navigational concept) 7.0 units 5.0-9.0 [facility] ([facility], [facility]) Laboratory test finding (navigational concept) Laboratory test result [facility] ([facility], [facility]) Laboratory test finding (navigational concept) Laboratory test result [facility] ([facility], [facility]) Laboratory test finding (navigational concept) 0.2 mg/dL 0.0-2.0 [facility] ([facility]) Laboratory test finding (navigational concept) Laboratory test result [facility] ([facility], [facility]) Laboratory test finding (navigational concept) Laboratory test result [facility] ([facility]) Laboratory test finding (navigational concept) Laboratory test result [facility] ([facility], [facility]) Laboratory test finding (navigational concept) Laboratory test result [facility] ([facility], [facility]) Laboratory test finding (navigational concept) Laboratory test result [facility] ([facility], [facility]) Laboratory test finding (navigational concept) 1 /HPF 0-3 [facility] ([facility], [facility]) Laboratory test finding (navigational concept) Laboratory test result [facility] ([facility], [facility]) Laboratory test finding (navigational concept) 0 /HPF 0-3 [facility] ([facility], [facility]) Laboratory test finding (navigational concept) Laboratory test result [facility] ([facility], [facility]) Laboratory test finding (navigational concept) 30 /HPF 0-6 [facility] ([facility], [facility]) Laboratory test finding (navigational concept) 0 /LPF 0-1 [facility] ([facility], [facility]) ID Date Data Source [id number] 10/27/2020 09:04:00 AM EDT [facility] ([facility], [facility]) Name Value Range Interpretation Code Description Data Marcella rce(s) Supporting Document(s) Red Blood Count 4.61 10 4.00-5.40 [facility] ([facility], [facility]) White Blood Count 10.4 10 4.0-10.0 [facility] ([facility], [facility]) Hemoglobin 12.7 g/dL 12.0-15.5 [facility] ([facility], [facility]) Hematocrit 40.0 % 36.0-47.0 [facility] ([facility], [facility]) Mean Corpuscular HGB Conc 31.8 g/dL 32.0-36.5 [facility] ([facility], [facility]) Mean Corpuscular Hemoglobin 27.5 pg 27.0-33.0 [facility] ([facility], [facility]) Mean Corpuscular Volume 86.8 fl 80.0-96.0 M EDENT ([facility], [facility]) Platelet Count, Automated 297 10 150-450 [facility] ([facility], [facility]) Red Cell Distribution Width 13.3 % 11.5-14.5 [facility] ([facility], [facility]) Lymph % 16.8 % 24.0-44.0 [facility] ([facility], [facility]) Neutrophils % 71.7 % 36.0-66.0 [facility] ([facility], [facility]) Eos % 3.4 % 0.0-3.0 [facility] ([facility], [facility]) [place] % 6.7 % 2.0-8.0 [facility] ([facility], [facility]) Nucleated Red Blood Cell % 0.0 % 0-0 MED [facility] ([facility]) Immature Granulocyte % 0.7 % 0-3.0 [facility] ([facility]) Baso % 0.7 % 0.0-1.0 [facility] ([facility], [facility]) Lymph # 1.7 10 1.5-5.0 [facility] ([facility], [facility]) Neutrophils # 7.4 10 1.5-8.5 [facility] ([facility], [facility]) Eos # 0.4 10 0.0-0.5 [facility] ([facility], [facility]) [place] # 0.7 10 0.0-0.8 [facility] ([facility]) Baso # 0.1 10 0.0-0.2 [facility] ([facility]) ID Date Data Source [id number] 10/27/2020 08:56:00 AM EDT [facility]) Name Value Range Interpretation Code Description Data Marcella rce(s) Supporting Document(s) Chlamydia Dna Amplification Laboratory test result Normal (applies to non- numeric results) [facility] ([facility]) A negative test result does not exclude the possibility of infection because test results may be affected by improper specimen collection, technical error, specimen mix-up, concurrent antibiotic therapy, or the number of organisms in the specimen which may be below the sensitivity of the test. Laboratory test finding (navigational concept) Laboratory test r esult Normal (applies to non-numeric results) [facility] ([facility]) A negative test result does not exclude the possibility of infection because test results may be affected by improper specimen collection, technical error, sample mix-up, or because the number of organisms in the sample is below the limit of detection of the test. GC Dna Amplification Laboratory test result Norm al (applies to non-numeric results) [facility] ([facility]) A negative test result does not exclude the possibility of infection because test results may be affected by improper specimen collection, technical error, specimen mix-up, concurrent antibiotic therapy, or the number of organisms in the specimen which may be below the sensitivity of the test. ID Date Data Source [id number] 10/27/2020 08:56:00 AM EDT [facility] ([facility]) Name Value Range Interpretation Code Description Data Marcella rce(s) Supporting Document(s) Chlamydia Dna Amplification Laboratory test result [facility] ([facility]) Not our patient GC Dna Amplification Laboratory test result [facility] ([facility]) Not our patient Trichomonas vaginalis (Amp) Laboratory test result [facility] ([facility]) Not our patient ID Date Data Source [id number] 09/02/2020 09:36:00 AM EST [facility] ([facility]) Name Value Range Interpretation Code Description Data Marcella rce(s) Supporting Document(s) Inhouse Urine Laboratory test result [facility] ([facility]) ID Date Data Source [id number] 09/02/2020 09:30:00 AM EST [facility] ([facility]) Name Value Range Interpretation Code Description Data Marcella rce(s) Supporting Document(s) Bacteria identified in Genital specimen by Aerobe cult ure Laboratory test result Normal (applies to non-numeric results) [facility] ([facility]) FULL REPORT IN LAB NOTES ([facility] ). NORMAL KRZYSZTOF PRESENT ID Date Data Source [id number] 09/02/2020 08:47:00 AM EST [facility] ([facility]) Name Value Range Interpretation Code Description Data Marcella rce(s) Supporting Document(s) Laboratory test finding (navigational concept) Laboratory test result [facility] ([facility]) ID Date Data Source [id number] 09/02/2020 08:47:00 AM EST [facility] ([facility]) Name Value Range Interpretation Code Description Data Marcella rce(s) Supporting Document(s) Chlamydia trachomatis rRNA [Presence] in Unspecified specimen by Probe and target amplification method Laboratory test result Normal (a pplies to non- numeric results) [facility] ([facility]) Neisseria gonorrhoeae rRNA [Presence] in Unspecified specimen by Probe and target amplification method Laboratory test result Normal (a pplies to non- numeric results) [facility] ([facility]) Comment Laboratory test result [facility] ([facility]) The analytical performance characteristi cs of this assay, when used to test SurePath(TM) specimens have been determined by [employer]. The modifications have not been cleared or approved by the FDA. This assay has been validated pursuant to the CLIA regulations and is used for clinical purposes. For additional information, please refer to [email or web address].Prelert/faq/URZ452 (This link is being provided for informa tion/ educational purposes only.) ID Date Data Source [id number] 09/02/2020 08:47:00 AM EST [facility] ([facility]) Name Value Range Interpretation Code Description Data Marcella rce(s) Supporting Document(s) Human papilloma virus E6+E7 mRNA [Presen ce] in Cervix by Probe and target amplification method Laboratory test result Normal (applies to non-numeric results) [facility]) Methodology: Business Process Architect-Mediated Ampl ification This assay detects E6/E7 viral messenger RNA (mRNA) from 14 high-risk HPV types (16,18,31,33,35,39,45,51,52,56,58,59,66,68). The analytical performance characteristics of this assay have been determined by [employer]. The modifications have not been cleared or approved by the FDA. This assay has been validated pursuant to the CLIA regulations and is used for clinical purposes. For additional information, please refer to http://Glaukos.Prelert/faq/DMY735h5 (This link if provided for information/ educational purposes only.) ID Date Data Source [id number] 09/02/2020 08:47:00 AM EST [facility] ([facility]) Name Value Range Interpretation Code Description Data Marcella rce(s) Supporting Document(s) Service comment Laboratory test result Normal (a pplies to non-numeric results) [facility] ([facility]) Last menstrual period start date Laboratory test result Normal (applies to non-numeric results) [facility] ([facility]) None given Clinical information Laboratory test result Norm al (applies to non-numeric results) [facility] ([facility]) Routine exam Specimen source [Identifier] in Cervical or vaginal smear or scraping by Cyto stain Laboratory test result Normal (applies to non-numeric results) [facility] ([facility]) Cervix, Endocervix Date of previous PAP smear Laboratory test result Normal (applies to non- numeric results) [facility]) None given Date of previous biopsy Laboratory test result N ormal (applies to non-numeric results) [facility] ([facility]) None given General categories [Interpretation] of C ervical or vaginal smear or scraping by Cyto stain Laboratory test result Abnormal (applies to non-numeri c results) [facility] ([facility]) EPITHELIAL CELL ABNORMALITY Statement of adequacy [Interpretation] o f Cervical or vaginal smear or scraping by Cyto stain Laboratory test result Normal (applies to non-nu meric results) [facility]) Satisfactory for evaluation. Endocervical/transformation zone component present. Microscopic observation [Identifier] in Cervix by Cyto stain Laboratory test result Abnormal (applies to non-numeric results) [facility] ([facility]) Atypical Squamous Cells of Undetermined Significance (ASC-US) Microorganism identified in Cervical or vaginal smear or scraping by Cyto stain Laboratory test result Normal (applies to non-numeric results) [facility] ([facility]) Cytology study comment Cervical or vaginal smear or sc raping Cyto stain Laboratory test result Normal (applies to non-numeric results) [facility] ([facility]) This Pap test has been evaluated with [employer] assisted technology. Vice President who read Cyto stain of Cervical or vaginal smear or scraping Laboratory test result Normal (applies to non-numeric results) [facility] ([facility]) MRS, CT(ASCP) CT screening location: [facility], [address] [place] [address], [place] [address] . Vice President who read Cyto stain of Cervical or vaginal smear or scraping Laboratory test result Normal (applies to non-numeric results) [facility] ([facility]) Pathologist who read Cyto stain of Cervical or vaginal smear or scraping Laboratory test result Normal (applies to non-numeric results) [facility] ([facility]) Jovani Houston MD, PhD, M.B.A. Board Certified in Anatomic and Clinical Pathology Board Certified in Cytopathology (electronic signature) For questions regarding this report call Anatomic Pathology at [phone] Comment Laboratory test result [facility] ([facility]) EXPLANATORY NOTE: The Pap is a screening test for cervical cancer. It is not a diagnostic test and is subject to false negative and false positive results. It is most reliable when a satisfactory sample, regularly obtained, is submitted with relevant clinical findings and history, and when the Pap result is evaluated along with historic and current clinical information. ID Date Data Source [id number] 09/02/2020 08:47:00 AM EST [facility] ([facility]) Name Value Range Interpretation Code Description Data Marcella rce(s) Supporting Document(s) Service comment Laboratory test result [facility] ([facility]) This order for age-based cervical cancer and STI screening follows ACOG guidelines(PB 168, 140, GSA533). See individual assays for performing site location. Procedure Social History Code Duration Value Status Description Data Source(s ) Smoking 09/02/2020 12:00:00 AM EST Patient has never smoked co mpleted Patient has never smoked [facility] ([facility]) Vital Signs ID Date Data Source UNK Name Value Range Interpretation Code Description Data Source(s) Body weight 216.38 [lb_av] 216.38 [lb_av] [facility] ([facility]) Heart rate 90 /min 90 /min [facility] ([facility]) Respiratory rate 18 /min 18 /min [facility] ( [facility]) Body temperature 98.9 [degF] 98.9 [degF] [facility]) Oxygen saturation in Arterial blood by Pulse oximetry 98 % 98 % [facility] ([facility]) [place] body weight 130 [lb_av] 130 [lb_av] [facility] T ([facility]) Systolic blood pressure 118 mm[Hg] 118 mm[Hg] M [facility] ([facility]) Diastolic blood pressure 70 mm[Hg] 70 mm[Hg] [facility]) Body height 66.7 [in_i] 66.7 [in_i] [facility] ([facility]) 5'6.70" Body mass index (BMI) [Ratio] 34.2 kg/m2 34.2 k g/m2 [facility] ([facility]) Body mass index (BMI) [Ratio] 35.5 kg/m2 35.5 k g/m2 [facility] ([facility]) Systolic blood pressure 114 mm[Hg] 114 mm[Hg] M [facility] ([facility]) Diastolic blood pressure 72 mm[Hg] 72 mm[Hg] [facility] ([facility]) Body weight 224.38 [lb_av] 224.38 [lb_av] [facility] ([facility]) Heart rate 101 /min 101 /min [facility] ([facility]) Respiratory rate 18 /min 18 /min [facility] ( [facility]) Body temperature 98.5 [degF] 98.5 [degF] [facility] ([facility]) Oxygen saturation in Arterial blood by Pulse oximetry 99 % 99 % [facility] ([facility]) [place] body weight 130 [lb_av] 130 [lb_av] [facility] ([facility]) Body height 66.7 [in_i] 66.7 [in_i] [facility] ([facility]) 5'6.70" Body temperature 96.9 [degF] 96.9 [degF] [facility] ([facility]) Body temperature 98.3 [degF] 98.3 [degF] [facility] ([facility]) Oxygen saturation in Arterial blood by Pulse oximetry 98 % 98 % [facility] ([facility]) [place] body weight 130 [lb_av] 130 [lb_av] [facility] ([facility]) Body mass index (BMI) [Ratio] 36.2 kg/m2 36.2 k g/m2 [facility] ([facility]) Heart rate 105 /min 105 /min [facility] ([facility]) Systolic blood pressure 124 mm[Hg] 124 mm[Hg] M [facility] ([facility]) Diastolic blood pressure 86 mm[Hg] 86 mm[Hg] [facility] ([facility]) Body height 66.7 [in_i] 66.7 [in_i] [facility] ([facility]) 5'6.70" Body weight 229.00 [lb_av] 229.00 [lb_av] [facility] ([facility]) Body temperature 97.3 [degF] 97.3 [degF] [facility] ([facility]) Body height 67 [in_i] 67 [in_i] [facility] ([facility]) 5'7" Body weight 228.25 [lb_av] 228.25 [lb_av] [facility] ([facility]) Body mass index (BMI) [Ratio] 35.7 kg/m2 35.7 k g/m2 [facility] ([facility]) Body temperature 97.5 [degF] 97.5 [degF] [facility] ([facility]) Body height 67 [in_i] 67 [in_i] [facility] ([facility]) 5'7" Body weight 231.25 [lb_av] 231.25 [lb_av] [facility] ([facility]) Body mass index (BMI) [Ratio] 36.2 kg/m2 36.2 k g/m2 [facility] ([facility]) Systolic blood pressure 122 mm[Hg] 122 mm[Hg] M [facility] ([facility]) Diastolic blood pressure 72 mm[Hg] 72 mm[Hg] [facility] ([facility]) Heart rate 128 /min 128 /min [facility] ([facility]) Respiratory rate 18 /min 18 /min [facility] ( [facility]) Body height 66.7 [in_i] 66.7 [in_i] [facility] ([facility]) 5'6.70" Body weight 233.25 [lb_av] 233.25 [lb_av] [facility] ([facility]) Body mass index (BMI) [Ratio] 36.9 kg/m2 36.9 k g/m2 [facility] ([facility]) Body temperature 98.5 [degF] 98.5 [degF] [facility] ([facility]) Oxygen saturation in Arterial blood by Pulse oximetry 100 % 100 % [facility] ([facility]) [place] body weight 130 [lb_av] 130 [lb_av] [facility] ([facility]) Heart rate 88 /min 88 /min [facility] ([facility]) Respiratory rate 18 /min 18 /min [facility] ( [facility]) Body temperature 98.4 [degF] 98.4 [degF] [facility] ([facility]) Oxygen saturation in Arterial blood by Pulse oximetry 99 % 99 % [facility] ([facility]) [place] body weight 130 [lb_av] 130 [lb_av] [facility] ([facility]) Body weight 232.38 [lb_av] 232.38 [lb_av] [facility] ([facility]) Body mass index (BMI) [Ratio] 36.7 kg/m2 36.7 k g/m2 [facility] ([facility]) Systolic blood pressure 128 mm[Hg] 128 mm[Hg] M [facility] ([facility]) Diastolic blood pressure 78 mm[Hg] 78 mm[Hg] [facility] ([facility]) Body height 66.7 [in_i] 66.7 [in_i] [facility] ([facility]) 5'6.70" Systolic blood pressure 126 mm[Hg] 126 mm[Hg] M [facility] ([facility]) Diastolic blood pressure 84 mm[Hg] 84 mm[Hg] [facility] ([facility]) Body height 66.7 [in_i] 66.7 [in_i] [facility] ([facility]) 5'6.70" Body weight 226.00 [lb_av] 226.00 [lb_av] [facility] ([facility]) Body mass index (BMI) [Ratio] 35.7 kg/m2 35.7 k g/m2 [facility] ([facility]) Heart rate 99 /min 99 /min [facility] ([facility]) Respiratory rate 18 /min 18 /min [facility] ( [facility]) Body temperature 98.7 [degF] 98.7 [degF] [facility] ([facility]) Oxygen saturation in Arterial blood by Pulse oximetry 97 % 97 % [facility] ([facility]) [place] body weight 130 [lb_av] 130 [lb_av] [facility] ([facility]) Systolic blood pressure 122 mm[Hg] 122 mm[Hg] M [facility] ([facility]) Diastolic blood pressure 82 mm[Hg] 82 mm[Hg] [facility] ([facility]) Respiratory rate 16 /min 16 /min [facility] ( [facility]) Body temperature 98.1 [degF] 98.1 [degF] [facility] ([facility]) Body mass index (BMI) [Ratio] 36.2 kg/m2 36.2 k g/m2 [facility] ([facility]) Heart rate 90 /min 90 /min [facility] ([facility]) Oxygen saturation in Arterial blood by Pulse oximetry 99 % 99 % [facility] ([facility]) [place] body weight 130 [lb_av] 130 [lb_av] [facility] ([facility]) Body height 66.7 [in_i] 66.7 [in_i] [facility] ([facility]) 5'6.70" Body weight 229.00 [lb_av] 229.00 [lb_av] [facility] ([facility]) Systolic blood pressure 126 mm[Hg] 126 mm[Hg] M [facility] ([facility]) Diastolic blood pressure 70 mm[Hg] 70 mm[Hg] [facility] ([facility]) Body height 66.7 [in_i] 66.7 [in_i] [facility] ([facility]) 5'6.70" Body weight 220.00 [lb_av] 220.00 [lb_av] [facility] ([facility]) Body mass index (BMI) [Ratio] 34.8 kg/m2 34.8 k g/m2 [facility] ([facility]) Heart rate 103 /min 103 /min [facility] ([facility]) Respiratory rate 18 /min 18 /min [facility] ( [facility]) Body temperature 98.3 [degF] 98.3 [degF] [facility] ([facility]) Oxygen saturation in Arterial blood by Pulse oximetry 98 % 98 % [facility] ([facility]) [place] body weight 130 [lb_av] 130 [lb_av] [facility] ([facility]) Patient Treatment Plan of Care Planned Activity Planned Date Details Description Data Source (s) Lorazepam 0.5 MG Oral Tablet 03/15/2021 12:00:00 AM [facility] Guanfacine 1 MG Oral Tablet 03/15/2021 12:00:00 AM [facility] Prazosin 1 MG Oral Capsule 03/01/2021 12:00:00 AM [facility] Lorazepam 0.5 MG Oral Tablet 03/01/2021 12:00:00 AM [facility] vilazodone hydrochloride 40 MG Oral Tablet [Viibryd] 021 12:00:00 AM EDT eCW1 ([facility]) atomoxetine 40 MG Oral Capsule 12/20/2020 12:00:00 AM EDT eCW1 ([facility]) vilazodone hydrochloride 20 MG Oral Tablet [Viibryd] 021 12:00:00 AM EDT eCW1 ([facility]) vilazodone hydrochloride 10 MG Oral Tablet [Viibryd] 021 12:00:00 AM EDT eCW1 ([facility]) atomoxetine 40 MG Oral Capsule 12/20/2020 12:00:00 AM EDT eCW1 ([facility]) vilazodone hydrochloride 20 MG Oral Tablet [Viibryd] 021 12:00:00 AM EDT eCW1 ([facility]) vilazodone hydrochloride 10 MG Oral Tablet [Viibryd] 12:00:00 AM EDT eCW1 ([facility]) aripiprazole 5 MG Oral Tablet 11/29/2020 12:00:00 AM EDT eCW1 ([facility]) atomoxetine 40 MG Oral Capsule [facility]
--- OUTSIDE RECORDS SUMMARY | 2021-04-24 14:56 | CCD ---
Author Author [facility] Organization [facility] Address Unknown Phone Unavailable Care Team Providers Care Securities Vault Supervisor Name Role Phone Donavon Chadwick MD Unavailable [...] Unavailable MCELHERAN, VENKATESH PA Unavailable Unavailable MCELCLAUDIA, VNEKATESH PA Unavailable Unavailable MCELCLAUDIA, VENKATESH PA Unavailable [...] A Venkatesh PA Unavailable Unavailable O'radha, A Evnkatesh PA Unavailable Unavailable O'radha, A Venkatesh PA [...] Unavailable TONTARSLUL, G ABHISHEK PA Unavailable Unavailable TONTARSLLU, G ABHISHEK PA Unavailable Unavailable TONTARSLUL, G [...] is protected by Article 27-F of the [facility] Public Health law. If you continue you may have access to information: Regarding HIV / AIDS; Provided by facilities licensed or operated by the [facility] Office of Mental Health; or Provided by the [facility] Office for People With Developmental Disabilities. If such information is present, then the following [facility] mandated warning applies: This information has been [...] law may result in a fine or correction sentence or both. A general authorization for the release of medical or other information is NOT sufficient authorization for further disc losure. Encounters Encounter Providers Location Date Indications Data Source(s ) Outpatient Attender: ISHA ORTIZ 05/03/2021 12:00:00 AM E [facility] Outpatient Attender: Venkatesh THOMAS [facility] Medicine [facility] 04/12/2021 01:45:00 PM EDT [facility] ([facility]) Outpatient Attender: ISHA ORTIZ [id number] 04/12/2021 12:00:0 0 AM EDT Bipolar disorder, unspecified [facility] Bipolar disorder, unspecified Office Visit Attender: Adria Chadwick MD Physical Therapy 2020 01:45:00 PM EDT [facility] ([facility] ) Outpatient Attender: Shae Magdaleno 04/04/2021 04:00:00 PM [facility] Outpatient Attender: Shae Magdaleno 04/04/2021 04:00:00 PM [facility] Outpatient Attender: ISHA ORTIZ 03/29/2021 12:00:00 AM E [facility] Outpatient Attender: ISHA [id number] 03/15/2021 12:00:0 0 AM EDT Attention-deficit hyperactivity disorder, predominantly inattentive type [facility] Attention-deficit hyperactivity disorder , predominantly inattentive type Outpatient Attender: Shae Magdaleno 03/07/2021 03:50:00 PM EDT [facility] Outpatient Attender: ISHA ORTIZ [id number] 03/01/2021 12:00:0 0 AM EDT Panic disorder (episodic paroxysmal anxiety) [facility] Panic disorder (episodic paroxysmal anxi ety) Outpatient [facility] 02/28/2021 12:00:00 AM EDT eCW1 ([facility]) Outpatient Attender: ATTILA FRANCO DO [facility] 02/27/2021 09:40:00 AM EDT [facility] ([facility]) Outpatient Attender: Shae Magdaleno 02/21/2021 04:00:00 PM [facility] Office Visit Attender: Adria Chadwick MD Physical Therapy 2020 03:30:00 PM EDT [facility] ([facility] ) Outpatient Attender: Adria Chadwick MD 02/03/2021 02:50:02 PM EDT [facility] ( in Healthcare facility) Attender: Adria Chadwick MD 02/03/2021 01:49:00 PM EDT - 02/04/2021 01:15:00 PM EDT [facility] Outpatient Attender: Adria Chadwick MDAdmitter: Adria Chadwick MD 02/03/2021 01:49:00 PM EDT - 02/04/2021 01:15:00 PM EDT RIGHT L5/S1 DISC HERNIATION, M51.26 [facility] RIGHT L5/S1 DISC HERNIATION, M51.26 Patient discharged. Outpatient Attender: Shae Magdaleno 01/31/2021 04:00:00 PM [facility] Outpatient Attender: Shae Magdaleno 01/24/2021 04:02:00 PM EDT [facility] Outpatient Attender: Venkatesh THOMAS [facility] 01/24/2021 08:00:00 AM EDT [facility] ([facility]) Outpatient Attender: Adria Chadwick MD Physical Therapy 01/20/2021 0 2:45:00 PM EDT [facility] ([facility]) Outpatient Attender: VENKATESH AVALOS PAConsultant: STAFF NON 01/18/2021 07:31:00 AM EDT - 01/18/2021 08:31:[address] [facility] Outpatient Attender: Shae Magdaleno 01/17/2021 04:00:00 PM [facility] Outpatient Attender: VENKATESH THOMAS Physical Therapy 01/16/2021 08:45:00 AM EDT [facility] ([facility]) Outpatient Attender: Dee THOMAS 021 11:56:44 AM EDT - 01/12/2021 01:54:32 PM EDT [facility] ([facility] ) Outpatient Attender: IZZY AHN 01/10/2021 04:00: 00 PM [facility] Outpatient Attender: Shae Rasta 01/03/2021 04:00:00 PM [facility] Outpatient [facility] 01/03/2021 12:00:00 AM EDT eCW1 ([facility]) Outpatient Attender: Venkatesh THOMAS [facility] 12/29/2020 02:40:00 PM EDT [facility] ([facility]) Outpatient Attender: Shae Magdaleno 12/27/2020 04:26:00 PM [facility] Outpatient Attender: IZZY AHN 12/20/2020 11:42: 00 AM [facility] Outpatient Attender: Shae Magdaleno 12/13/2020 04:00:00 PM [facility] Outpatient Attender: IZZY AHN 11/29/2020 06:32: 00 PM [facility] Outpatient Attender: Shae Magdaleno 11/29/2020 04:00:00 PM [facility] Outpatient Attender: Shae Magdaleno 11/17/2020 01:00:00 PM [facility] Outpatient Attender: Shae Magdaleno 10/21/2020 10:00:00 AM [facility] Outpatient Attender: Venkatesh THOMAS [facility] 10/14/2020 08:00:00 AM EDT [facility] ([facility]) Outpatient Attender: Venkatesh THOMAS [facility] 09/16/2020 01:15:00 PM EST [facility] ([facility]) Outpatient Attender: ATTILA FRANCO DO [facility] 09/02/2020 07:40:00 AM EST [facility] ([facility]) Outpatient Attender: Venkatesh THOMAS [facility] 08/10/2020 01:00:00 PM EST [facility] ([facility]) Outpatient Attender: ABHISHEK THOMAS [facility] 07/29/2020 02:15:00 PM EST [facility] ([facility]) Immunizations Vaccine Date Status Description Data Source(s) COVID-19 VACCINE Moderna 09/01/2020 12:00:00 AM EST completed [facility] Vaccine Series Complete: YESThis Data wa s Submitted to [facility] Via Metaset. COVID-19 VACCINE Moderna 08/04/2020 12:00:00 AM EST completed [facility] Vaccine Series Complete: NOThis Data was Submitted to [facility] Via [employer]aset. Medications Medication Brand Name Start Date Product Form Dose Route Admi nistrative Instructions Pharmacy Instructions Status Indications Reaction Description Data Source(s) lamotrigine 200 MG Oral Tablet [Lamictal] Lamictal 04/12/2021 1 2:00:00 AM EDT active [facility] ([facility]) Lorazepam 0.5 MG Oral Tablet LORazepam 0.5 MG Oral Tab let (Ativan) LORazepam 0.5 MG Oral Tablet (Ativan) 03/15/2021 12:00:00 AM EDT 0.5 mg Oral active Panic disorder Take 1 tablet by mouth daily as needed for Anxiety (panic attacks), Max Daily Dose: 0.5 mg [facility] Panic disorder Guanfacine 1 MG Oral Tablet guanFACINE HCl 1 MG Oral T ablet (TENEX) guanFACINE HCl 1 MG Oral Tablet (TENEX) 03/15/2021 12:00:00 AM EDT 1 mg Oral active ADHD (attention deficit hyperactivity disorder), inattentive type Take 1 tablet by mouth nightly [facility] ADHD (attention deficit hyperactivity di sorder), inattentive type Prazosin 1 MG Oral Capsule Prazosin HCl 1 MG Oral Caps ule (MINIPRESS) Prazosin HCl 1 MG Oral Capsule (MINIPRESS) 03/01/2021 12:00:00 AM EDT 1 mg Oral active Nightmare Take 1 capsule by mouth nightly [facility] Nightmare Lorazepam 0.5 MG Oral Tablet LORazepam 0.5 MG Oral Tab let (Ativan) LORazepam 0.5 MG Oral Tablet (Ativan) 03/01/2021 12:00:00 AM EDT 0.5 mg Oral aborted Panic disorder Take 1 tablet by mouth daily as needed for Anxiety (panic attacks), Max Daily Dose: 0.5 mg [facility] Panic disorder Ketoconazole 20 MG/ML Topical Cream Ketoconazole 02/27/2021 12:00:00 AM EDT active [facility] ([facility]) vilazodone hydrochloride 40 MG Oral Tablet [Viibryd] V iibryd 40 MG Viibryd 40 MG 02/21/2021 12:00:00 AM EDT 1.0 {tablet_with_food} active Viibryd 40 MG eCW1 ([facility]) Lorazepam 0.5 MG Oral Tablet [Ativan] Ativan 02/02/2021 12:00:00 AM EDT ORAL completed [facility] ([facility]) Acetaminophen 325 MG / Oxycodone Hydrochloride 5 MG Or al Tablet Oxycodone-Acetaminophen 01/25/2021 12:00:00 AM EDT ORAL active [facility] ([facility] ) chlorhexidine gluconate 40 MG/ML Medicated Liquid Soap [Hibi clens] Hibiclens 01/20/2021 12:00:00 AM EDT active [facility] ([facility] ) Mupirocin 0.02 MG/MG Topical Ointment Mupirocin 01/20/2021 12:00:00 AM EDT active [facility] ([facility] ) tizanidine 4 MG Oral Tablet Tizanidine HCL 01/16/2021 12:00:00 AM EDT ORAL active [facility] ([facility] ) Prednisone 20 MG Oral Tablet Prednisone 12/29/2020 12:00:00 AM EDT ORAL completed [facility] ([facility]) tramadol hydrochloride 50 MG Oral Tablet Tramadol HCL 12/29/2020 12:00:00 AM EDT ORAL active [facility] ([facility]) tizanidine 4 MG Oral Capsule Tizanidine HCL 12/29/2020 12:00:00 AM EDT ORAL active [facility] ([facility]) vilazodone hydrochloride 10 MG Oral Tablet [Viibryd] V iibryd 10 MG Viibryd 10 MG 12/20/2020 12:00:00 AM EDT 1.0 {tablet_with_food} active Viibryd 10 MG eCW1 ([facility]) vilazodone hydrochloride 20 MG Oral Tablet [Viibryd] V iibryd 20 MG Viibryd 20 MG 12/20/2020 12:00:00 AM EDT 1.0 {tablet_with_food} active Viibryd 20 MG eCW1 ([facility]) atomoxetine 40 MG Oral Capsule Atomoxetine HCl 40 MG Atomoxe nikita HCl 40 MG 12/20/2020 12:00:00 AM EDT 1.0 {capsule_in_the_morning} active Atomoxetine HCl 40 MG eCW1 ([facility]) vilazodone hydrochloride 10 MG Oral Tablet [Viibryd] V iibryd 10 MG Viibryd 10 MG 12/20/2020 12:00:00 AM EDT 1.0 {tablet_with_food} active Viibryd 10 MG eCW1 ([facility]) atomoxetine 40 MG Oral Capsule Atomoxetine HCl 40 MG Atomoxe nikita HCl 40 MG 12/20/2020 12:00:00 AM EDT 1.0 {capsule_in_the_morning} active Atomoxetine HCl 40 MG eCW1 ([facility]) vilazodone hydrochloride 20 MG Oral Tablet [Viibryd] V iibryd 20 MG Viibryd 20 MG 12/20/2020 12:00:00 AM EDT 1.0 {tablet_with_food} active Viibryd 20 MG eCW1 ([facility]) aripiprazole 5 MG Oral Tablet ARIPiprazole 5 MG ARIPiprazole 5 MG 11/29/2020 12:00:00 AM EDT 1.0 {tablet} active AR IPiprazole 5 MG eCW1 ([facility]) aripiprazole 5 MG Oral Tablet ARIPiprazole 5 MG ARIPiprazole 5 MG 11/29/2020 12:00:00 AM EDT 1.0 {tablet} active AR IPiprazole 5 MG eCW1 ([facility]) Lamotrigine Starter Kit-Kershaw Lamotrigine Starter Kit-Orang e 10/17/2020 12:00:00 AM EDT completed [facility] ([facility]) lamotrigine 100 MG Oral Tablet [Lamictal] Lamictal 10/14/2020 1 2:00:00 AM EDT ORAL completed [facility] ([facility]) Lamictal Starter/Not Taking Carbamazepine Lamictal Sta rter/Not Taking Carbamazepine 09/16/2020 12:00:00 AM EST completed [facility] ([facility]) Ork-Rq-Qpwvmoplw Gjb-Ou-Rylsrbqpa 09/02/2020 12:00:00 AM EST ORAL active [facility] ([facility]) Lorazepam 0.5 MG Oral Tablet [Ativan] Ativan 08/10/2020 12:00:00 AM EST ORAL completed [facility] ([facility]) Dicyclomine Hydrochloride 10 MG Oral Capsule Dicyclomine HCL 08/10/2020 12:00:00 AM EST ORAL active [facility] ([facility]) atomoxetine 40 MG Oral Capsule Atomoxetine HCl 40 MG O ral Capsule (STRATTERA) Atomoxetine HCl 40 MG Oral Capsule (STRATTERA) 40 mg Oral aborted Take 40 mg by mouth daily [facility] Insurance Providers Payer name Policy type / Coverage type Policy ID Covered alliance party ID Covered alliance party's relationship to tadeo Policy Tadeo Plan Information [facility] [id number] FA2 [id number] Self [id number] / [id number] Self [id number] [facility] - O/P UNAVAILABLE UNAVAILABLE [facility] [id number] FA2 [id number] [facility] WPS 0 CHILD 0 [facility] WPS [id number] CHILD [id number] [employer] [place] PPO 302/307 [id number] SP [id number] [facility] [id number] P [id number] [facility] - O/P [id number] Problems, Conditions, and Diagnoses Code Display Name Description Problem Type Effective Dates Data Source(s) F90.0 Attention-deficit hyperactivity disorder , 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, predominantly inattentive type Diagnosis 04/13/2021 08:39:59 AM [facility] F41.0 Panic disorder [episodic paroxysmal anxi ety] Panic disorder (episodic paroxysmal anxiety) Diagnosis 04/13/2021 08:39:59 AM EDT [facility] F31.9 Bipolar disorder, unspecified Bipolar disorder, unspec ified Diagnosis 04/13/2021 08:39:59 AM T [facility] Z53.29 Procedure and treatment not carried out because of patient's decision for other reasons PROC/TRTMT NOT CRD OUT BEC PT DECISION FOR OTH REASONS Diagn osis 04/04/2021 04:00:00 PM [facility] F90.0 Attention-deficit hyperactivity disorder , predominantly inattentive type ATTN-DEFCT HYPERACTIVITY DISORDER, PREDOM INATTENT Diagnosis 04:00:00 PM [facility] F32.9 Major depressive disorder, single episod e, unspecified MAJOR DEPRESSIVE DISORDER, SINGLE EPISODE, UNSPECI Diagnosis 04/04/2021 04:00:00 PM [facility] F41.9 Anxiety disorder, unspecified ANXIETY DISORDER, UNSPEC IFIED Diagnosis 04/04/2021 04:00:00 PM [facility] 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 F39 Unspecified mood [affective] disorder UNSPECIFIE D MOOD [AFFECTIVE] DISORDER Diagnosis 01/10/2021 04:00:00 PM [facility] F90.0 [id number] Attention deficit hy peractivity disorder (ADHD), predominantly inattentive type Problem 12/20/2020 12:00:00 AM EDT eCW1 ([facility]) F39 [id number] Unspecified mood [affective] disorder Pro blem 11/29/2020 12:00:00 AM EDT eCW1 ([facility]) F41.9 [id number] Anxiety Problem 10/21/2020 12:00:00 AM ED T eCW1 ([facility]) F32.9 [id number] Depression, unspecified depression type P roblem 10/21/2020 12:00:00 AM EDT eCW1 ([facility]) E28.2 Polycystic ovary syndrome Polycystic ovary syndrome Pr oblem 10/14/2020 12:00:00 AM EDT [facility] ([facility]) F43.10 Posttraumatic stress disorder Posttraumatic stress dis order Problem 10/14/2020 12:00:00 AM EDT [facility] ([facility]) 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 of bypass of stom ach Problem 10/14/2020 12:00:00 AM EDT [facility] ([facility]) F31.9 Bipolar disorder Bipolar disorder Problem 09/16/2020 12 :00:00 AM EST [facility] ([facility]) [id number] Pure hypercholesterolemia Pure hypercholesterolemia Pr oblem 07/29/2020 12:00:00 AM EST [facility] ([facility]) Surgeries/Procedures Procedure Description Date Indications Data Source(s) OFFICE OUTPATIENT VISIT 15 MINUTES 04/12/2021 12:00:00 AM EDT [facility] ([facility]) OFFICE OUTPATIENT VISIT 15 MINUTES 02/27/2021 12:00:00 AM EDT [facility] ([facility]) Laminectomy One Interspace, Lumbar 02/03/2021 12:00:00 AM EDT [facility] ([facility] ) Laminectomy One Interspace, Lumbar 02/03/2021 12:00:00 AM EDT [facility] ([facility] ) OFFICE OUTPATIENT VISIT 25 MINUTES 01/24/2021 12:00:00 AM EDT [facility] ([facility]) OFFICE OUTPATIENT VISIT 25 MINUTES 01/20/2021 12:00:00 AM EDT [facility] ([facility] ) OFFICE OUTPATIENT NEW 45 MINUTES 01/16/2021 12:00:00 A M EDT [facility] ([facility]) OFFICE OUTPATIENT VISIT 15 MINUTES 12/29/2020 12:00:00 AM EDT [facility] ([facility]) OFFICE OUTPATIENT VISIT 25 MINUTES 10/14/2020 12:00:00 AM EDT [facility] ([facility]) OFFICE OUTPATIENT VISIT 25 MINUTES 09/16/2020 12:00:00 AM EST [facility] ([facility]) OFFICE OUTPATIENT VISIT 10 MINUTES 09/02/2020 12:00:00 AM EST [facility] ([facility]) PERIODIC PREVENTIVE MED EST PATIENT 18-39 YRS 09/02/19 12:00:00 AM EST [facility] ([facility]) OFFICE OUTPATIENT NEW 45 MINUTES 08/10/2020 12:00:00 A M EST [facility] ([facility]) Results ID Date Data Source [id number] 04/23/2021 06:00:49 PM EDT [facility] Name Value Range Interpretation Code Description Data Marcella rce(s) Supporting Document(s) Progress Note [facility] XNPLZv9wHhBVRgPu01/UENtkQIBoq7GyUVkqQMo0NFagXPRrA4FaHFE1tH9hMUI9EQpBYgLaLjOxABE3 m [file] l1V7EsHMD1OH1xJGKEEq5+LGqnqNFddLvaJXLRJcB2HQZYUmApDH3GAFx= ID Date Data Source [id number] 03/20/2021 07:30:48 PM EDT [facility] Name Value Range Interpretation Code Description Data Marcella rce(s) Supporting Document(s) Progress Note [facility] FHFMJe7nAnNSTiZg40/JKHajXNRso1DhZSwnAEo6XTsqCJRlS0SiPFE9aF4uBZO4OMxCZsNiBdKyCHBi lbm [file] AgICAgICAgICAgICAgICAgICAgICAgICAgICAgICAg ICAgICAgICAgICAgICAgICAgICAgICAgICAgICAgICAgICAgICAgICAgDQogICAgICAgICAgICAgICAg ICAgICAgICAgICAgICAgICAgICAgICAgICAgICAgICAgICAgICAgICAgICAgICAgICAgICAgICAgICAg ICAgICAgICAgICAgICAgICAgICAgICAgDQogICAgIC AgICAgICAgICAgICAgICAgICAgICAgICAgICAgICAgICAgICAgICAgICAgICAgICAgICAgICAgICAgIC AgICAgICAgICAgICAgICAgICAgICAgICAgICAgICAgICAgDQogICAgICAgICAgICAgICAgICAgICAgIC AgICAgICAgICAgICAgICAgICAgICAgICAgICAgICAg ICAgICAgICAgICAgICAgICAgICAgICAgICAgICAgICAgICAgICAgICAgICAgDQogICAgICAgICAgICAg ICAgICAgICAgICAgICAgICAgICAgICAgICAgICAgICAgICAgICAgICAgICAgICAgICAgICAgICAgICAg ICAgICAgICAgICAgICAgICAgICAgICAgICAgDQogIC AgICAgICAgICAgICAgICAgICAgICAgICAgICAgICAgICAgICAgICAgICAgICAgICAgICAgICAgICAgIC AgICAgICAgICAgICAgICAgICAgICAgICAgICAgICAgICAgICAgDQogICAgICAgICAgICAgICAgICAgIC AgICAgICAgICAgICAgICAgICAgICAgICAgICAgICAg ICAgICAgICAgICAgICAgICAgICAgICAgICAgICAgICAgICAgICAgICAgICAgICAgDQogICAgICAgICAg ICAgICAgICAgICAgICAgICAgICAgICAgICAgICAgICAgICAgICAgICAgICAgICAgICAgICAgICAgICAg ICAgICAgICAgICAgICAgICAgICAgICAgICAgICAgDQ ogICAgICAgICAgICAgICAgICAgICAgICAgICAgICAgICAgICAgICAgICAgICAgICAgICAgICAgICAgIC AgICAgICAgICAgICAgICAgICAgICAgICAgICAgICAgICAgICAgICAgDQogICAgICAgICAgICAgICAgIC AgICAgICAgICAgICAgICAgICAgICAgICAgICAgICAg IXIdIYPzYOZiVPRpNNMzEUYbNMLoFDLtZIGqXQUlMBIvVHYvVSAwXKDjNZZwBGDzXHLmPMi8R6qzLFQo XNHyOD8nOTb2Ix2+LWkFKaRcYDC5oyKtiI1XAA0ye4UrRFfxYUKar7BhSXd0UQ7ROLGkLDixZS6AVXts xh7JRMVhTXVbwHGMn3zsUhDoTGS2SFVkLhivPL8HUN XnM2igwoZlQITvLFKTGZ7HFzEuD5YrpK74SFXMEa6+SMgyduAbHufVBwL6RUFrt6JfBSp8GM7SHCNkNp fqe3VeHHNwBOKJHBowVJ1RJTF3GSP2KSWiNq3KZBSnS676bkGcVJ0DZt2EIkOuQU1omr2YYOAdSUEsDz wXTdr5MUeiXB5WuOSjWTtJlz8hmtPxkoXFv6HmryDu iQEDqDFhRF9cOqhgjjfuJQ6ZBLU6UOaoMY7kBTDdBHN3JzVzWJKQNH9MMIPgDMWreZOzGDQrHDNJDX1L SQcwRKP0NZLoanAxsTBtMYbzKE7SDCYnvgQcCKJlMEUYFZz+Eg0RUS7yr9WdMHnkDxQgII6xva9WSUcC NdWiP8D1iWWcO3H7FJleMh5WRTWvYUOuPKAiQXXNKK dyUG4VRU2knjS1VC6QoJZkYXYjWRXreZTxVYb6A32xbJVqMBhlRU7QIDY+Alondra+Ep8YJJMwEOPgKGSqYf KxBFCQTtDfR1FgF5OBx8DyB4RkSM66fZyujqGnSEfmEX1ANZ4dKAKuIREBDQ7FnDGjaB7myfKcXKJuSS XKCwSkR70nkLGgTVXnBKKxNIFvBo1KPMUuJ0DnqxOs iWdjloIiOYAbMJOVHC8XGZeioyFpwWGyeCkqWQ74kRqxQK3UXi0MUkOtGC9wiv2TzDFjLk5EDVMhLo6L WHCyHGJnGBPcMXT9HSVtKoQqSDwjTAIiHNHyOHW5TLYjBDZhRR3DBfEjCANfQNTyIqDmINHrPNQdfu4X CONfNYDrGRm6AvLyGHJiNCCqEYmpDXQkUNHfIDT3XM PuWAUtJZ1CMyHfJVGeRYEmYrJsBMDkYKZiol8HXMJjXIWcWNJrTeXeZWAoFUVdUNawPLVxSIEnMwp4NL JvDBRvII1ANjGzVATuYPE2DWSkFRXpWMGodc9MFZMtXLPcAfj7LFJzENCpXFZvFOhdPCJiQLBjRxA3ED MaOZCnBP1IYrKpCHHrKHI3EwTxCNSxBJTdmx3RSTQl BOWaYXJlNCRqIDNtNJJpNRzlASVkUSM9TAXaNMHuKVVgHQ0JIaQiSAIqTLT4VHGcENJjTOIspw4CFSPo IQHaRiBwHWBjMCJvJZCtSNjrQSQzPGO6OLY0EAQjZTNaHM5KVtBaSGteSLANKex0TVttL9y8AWTyLn9Z B6Ust7NlNIJjFBDZDFziDI3kyhStESPqTd8WN4cQVc h3MeibLvPpLBopLqAcXiSxQKAuUCIuH9QnMCXsVULgEU2mVPXiOWBsLXH6TRSiCLIhNTZvSrJkNyXaIQ HwQBVvZ1JrKoNoGI9LNn2CFnV8XLN3tMIyKv7PHbIsHB1AKBRQT0XPYq== ID Date Data Source [id number] 03/08/2021 07:36:[address] [facility] Name Value Range Interpretation Code Description Data Marcella rce(s) Supporting Document(s) Progress Note [facility] YQEPEm9sUtOJFtFy38/JWAevQPHil5AvVVllSSn3HEkoCLZpI3PcHVU9wD3rPES9SBoTVkWyBdCpMLNr lbm [file] W0ICsjZLDjGV3aNGGSJi3+TIdcdYCuuCrgDPRXVjE9ZWPAZgOxDE5IPFi= ID Date Data Source [id number] 02/04/2021 08:59:48 AM EDT [facility] Name Value Range Interpretation Code Description Data Marcella rce(s) Supporting Document(s) SODIUM 141 mmol/L (136-145) [facility] POTASSIUM 4.3 mmol/L (3.6-5.2) [facility] CHLORIDE 110 mmol/L (100-108) H [facility] CO2 24 mmol/L (22-31) [facility] ANION GAP 7 mmol/L (7-16) [facility] UREA NITROGEN 8 mg/dL (7-24) [facility] CREATININE 0.57 mg/dL (0.60-1.00) L [facility] BUN/CREAT RATIO 14.0 RATIO (10.0-20.0) [facility] GLUCOSE 93 mg/dL (70-99) [facility] CALCIUM 8.4 mg/dL (8.4-10.2) [facility] GFR >60 ml/min/1.73m2 (>59) [facility] GFR ( AMER) >60 ml/min/1.73m2 (>59) [facility] GFR INTERPRETATION [facility] --NORMAL KIDNEY FUNCTION OR MILD DISEASE - GFR >OR= 60CHRONIC KIDNEY DISEASE - GFR 15 - 59RENAL FAILURE - GFR <15 Est. GFR calculation based on the MDRDstudy equation, which assumes a steadystate for creatinine. Est. GFR should notbe used for medication dosing. ID Date Data Source [id number] 02/04/2021 08:46:21 AM EDT [facility] Name Value Range Interpretation Code Description Data Marcella rce(s) Supporting Document(s) WBC 16.6 10*3/uL (4.1-11.0) H [facility] RBC 4.62 10*6/uL (4.00-5.40) [facility] HGB 12.4 g/dL (12.0-16.0) [facility] HCT 38.6 % (36.0-47.0) [facility] PERFORMED AT [address] [facility] [id number] MCV 83.6 fL (80.0-95.0) [facility] MCH 26.8 pg (27.0-32.0) L [facility] MCHC 32.0 g/dL (32.0-36.0) [facility] RDW 14.6 % (10.5-14.5) H [facility] PLT 307 10*3/uL (150-450) [facility] MPV 9.6 fL (7.1-10.7) [facility] ID Date Data Source [id number] 02/11/2021 07:21:00 PM EDT [id number] [place], [place] [id number] NAME: NELLY KAPLANDATE OF : 1995REPORT: OPERATIONPATIENT NUMBER: [id number] STATUS: SDMEDICAL RECORD NUMBER: [id number] OF ADMISSION: 1DATE OF DISCHARGE:ROOM: 00DATE OF [...] slightly flexed, Sushil elevated. OnceI and the print production coordinator were comfortable with the patient's positioning, shewas [...] lamina. Divot was d rilled in the [id number] and a Hernandez-Landon was placed in the [...] bed, extubated, [facility]Mr. Avalos participated in the entirety of this case in the capacity offirst salon assistant.DICTATED BY: Adria Chadwick, MDDictated: 02/03/2021 22:52DT: 02/03/2021 23:02Job #: [id number]: [facility] computer generated reports are not confirmed orauthenticated unless they are signed by the providerElectronically Authenticated by:ADRIA CHADWCIK MD On 02/11/2021 07:21 PM EDT Name Value Range Interpretation Code Description Data Marcella rce(s) Supporting Document(s) ID Date Data Source [id number] 02/03/2021 03:37:29 PM EDT Marisela Veras SPEC EXP DATE 02/06/2021ATI ENT ABO/Rh A POSITIVEANTIBODY SCREEN NEGATIVETESTING SITE PERFORMED AT [address] [place] [id number] Name Value Range Interpretation Code Description Data Marcella rce(s) Supporting Document(s) ID Date Data Source [id number] 02/03/2021 03:06:12 PM EDT [facility] Name Value Range Interpretation Code Description Data Marcella rce(s) Supporting Document(s) HCG, QUAL. SERUM (NEG) [facility] ID Date Data Source [id number] 02/03/2021 02:50:01 PM EDT [facility] Name Value Range Interpretation Code Description Data Marcella rce(s) Supporting Document(s) WBC 10.8 10*3/uL (4.1-11.0) [facility] RBC 4.68 10*6/uL (4.00-5.40) [facility] HGB 12.7 g/dL (12.0-16.0) [facility] HCT 38.9 % (36.0-47.0) [facility] PERFORMED AT [address] [facility] [address] MCV 83.3 fL (80.0-95.0) [facility] MCH 27.2 pg (27.0-32.0) [facility] MCHC 32.6 g/dL (32.0-36.0) [facility] RDW 14.3 % (10.5-14.5) [facility] PLT 320 10*3/uL (150-450) [facility] MPV 9.0 fL (7.1-10.7) [facility] ID Date Data Source [id number] 02/06/2021 04:05:56 PM EDT [facility] [id number]# SURGICAL PATHOLOGY REPORTPatient Name:NELLY KAPLANDOB:1995Received:02/06/2021ccession #:[id number](s) [...] Out By Latonia Foster D.O. dPath[facility] Health[facility] [place] [id number] component performed at [facility], Histopathology, [address] [place] [address], [id number].Reported at [facility], [address] [place] [address], [id number].This report may include immunohistochemical or in-situ hybridizationresults. Testing was developed and the performance characteristicsdetermined by [facility], as required byCLIA '88. The FDA has determined that approval for specific use is notnecessary for clinical use. The quality of Hematoxylin and Eosin stainsand as applicable, for all immunohistochemical and/or special stains,including positive and negative controls, were reviewed and consideredappropriate.ICD codes:A: M51.87CPT4 codes: A: 16337K Name Value Range Interpretation Code Description Data Marcella rce(s) Supporting Document(s) ID Date Data Source [id number] 01/30/2021 09:00:00 AM EDT [facility] ([facility]) Name Value Range Interpretation Code Description Data Marcella rce(s) Supporting Document(s) Coronavirus 2019 Nasopharygeal Laboratory test result [facility] ([facility]) ASSAY INFORMATION: Real Time RT-PCR NOTE: The COVID-19 assay has been cleared by the U.S. Food and Drug Administration under the Emergency Use Authorization (EUA). [facility] are designated as high complexity laboratories by the Clinical Laboratory Improvement Amendments of 1988(CLIA) and are qualified to perform this test. Not Detected ID Date Data Source [id number] 01/30/2021 09:00:00 AM EDT [facility] ([facility]) Name Value Range Interpretation Code Description Data Marcella rce(s) Supporting Document(s) Coronavirus 2019 Nasopharygeal Laboratory test result [facility] ([facility]) ASSAY INFORMATION: Real Time RT-PCR NOTE: The COVID-19 assay has been cleared by the U.S. Food and Drug Administration under the Emergency Use Authorization (EUA). [facility] and [facility] are designated as high complexity laboratories by the Clinical Laboratory Improvement Amendments of 1988(CLIA) and are qualified to perform this test. Not Detected ID Date Data Source [id number] 01/19/2021 02:41:00 PM EDT [facility] [address] [place] [address] PHONE: [phone] FAX: [phone] Name .................. : ROSAURA VILLEGAS Acct Number.................. : [id number] ROOM. ................. : MR Number ................... : [id number] Stay type ............. : O/P Discharge Date......... ... : 01/18/21 Admit Date ......... : 01/18/21 Admit Phys .................... : ROBBIE Date of ....... : 1995 Family Phys ................... : NON STAFF Phone .................. : [phone] Age ................................ : 25 Film# .................. .:[id number] Sex ................................. : F Unsigned transcriptions are preliminary reports and do not represent a medical or legal document MRI LUMBAR SPINE W/O CONTRAST [id number] COMPLETE:01/18/21 08:53 NEGRITO [id number] Reason for Exam: DISC DEGENERATION LUMBAR REGION [...] 01/19/21 14:41, AML Page 1 of 2 [place] [address] PHONE: [phone] FAX: [phone] Name .................. : KAPLAN NELLY Acct Number.................. : [id number] ROOM. ................. : MR Number ................... : [id number] Stay type ............. : O/P Discharge Date......... ... : 01/18/21 Admit Date ......... : 01/18/21 Admit Phys .................... : ROBBIE Date of ....... : 1995 Family Phys ................... : NON STAFF Phone .................. : [phone] Age ................................ : 25 Film# .................. .:[id number] Sex ................................. : F Unsigned transcriptions are preliminary reports and do not represent a medical or legal document MRI LUMBAR SPINE W/O CONTRAST [id number] COMPLETE:01/18/21 08:53 NEGRITO [id number] Reason for Exam: DISC DEGENERATION LUMBAR REGION Transcribe Initials: COLTON , Transcribe Date: 01/18/21 19:04, Dictation Date: Copy for: ROBBIE Cortes via fax Copy for: [facility] REC Page 2 of 2 Name Value Range Interpretation Code Description Data Marcella rce(s) Supporting Document(s) ID Date Data Source [id number] 12/30/2020 10:32:00 AM EDT [facility] FASTING: NOReceived: 12/30/2020 at 04:26 :00 QPT: [facility], [address] , [address] [place], [address], Chi Valenzuela MD Name Value Range Interpretation [...] Immunity Screen, ACIF. ID Date Data Source [id number] 12/28/2020 12:36:00 PM EDT [facility] [facility] FASTING: UNKNOWNReceived: 12/28/2020 at 08:12:00 QPT: [facility], [address], [address] [place], [address], Chi Valenzuela MD Received: 12/28/2020 at 08:12:00 QPT : [facility], [address] [place], [address], Chi Valenzuela MD Name Value Range Interpretation Code Description Data Marcella rce(s) Supporting Document(s) Measles virus IgG Ab [Units/volume] in Serum by Immunoassay 134. 00 AU/mL Normal (applies to non-numeric results) [facility] AU/mL Interpretation----- <13.50 Not consistent with tniuegno15.50-16.49 Equivocal>16.49 Consistent with immunityThe presence of measles IgG suggests immunization orpast or current infection with measles virus.For additional information, please refer tohttp://education.[employer]faq/VMU733(This link is being provided for informational/educational purposes only.) Mumps virus IgG Ab [Units/volume] in Serum by Immunoassay 196.00 AU/mL Normal (applies to non-numeric results) [facility] AU/mL Interpretation------- <9.00 Not consistent with immunity9.00-10.99 Equivocal>10.99 Consistent with immunityThe presence of mumps IgG antibody suggests immunizationor past or current infection with mumps virus. Rubella virus IgG Ab [Units/volume] in Serum or Plasma by Immunoassay 2.21 Index Normal (applies to non-numeric results) [facility] Index Interpretation - ---- <0.90 Not consistent with immunity 0.90-0.99 Equivocal > or = 1.00 Consistent with immunityThe presence of rubella IgG antibody suggestsimmunization or past or current infection withrubella virus. ID Date Data Source [id number] 12/28/2020 12:36:00 PM EDT [facility] FASTING: UNKNOWNReceived: 12/28/2020 at 08:12:00 QPT: [facility], [address], [address] [place], [address], Chi Valenzuela MD Received: 12/28/2020 at 08:12:00 QPT : [facility], [address] [facility], [address] [place], [address], Chi Valenzuela MD Name Value Range Interpretation Code Description Data Marcella rce(s) Supporting Document(s) Hepatitis B virus surface Ab [Units/volume] in Serum or Plas ma by Immunoassay > OR = 10 Below low normal [facility] Patient does not have immunity to hepati tis B virus.For additional information, please refer tohttp://education.[employer]/faq/MDB143(This link is being provided for informational/educational purposes only). ID Date Data Source [id number] 10/27/2020 10:42:00 AM EDT [facility] ([facility]) Name Value Range Interpretation Code Description Data Marcella rce(s) Supporting Document(s) Wet Prep Laboratory test result [facility] ([facility]) Reference Interval: Negative for Clue Ce lls, Trichomonas vaginalis or Yeast like organisms. WET PREP RESULT FEW EPITHELIAL CELLS PRESENT FEW WBC MODERATE RBC FEW LONG RODS PRESENT FEW SHORT RODS PRESENT FEW CLUE CELLS PRESENT ID Date Data Source [id number] 10/27/2020 10:42:00 AM EDT [facility] ([facility]) Name Value Range Interpretation Code Description Data Marcella rce(s) Supporting Document(s) Laboratory test finding (navigational concept) Laboratory test result [facility]) Reference Interval: Negative for Clue Ce lls, Trichomonas vaginalis or Yeast like organisms. WET PREP RESULT FEW EPITHELIAL CELLS PRESENT FEW WBC MODERATE RBC FEW LONG RODS PRESENT FEW SHORT RODS PRESENT FEW CLUE CELLS PRESENT ID Date Data Source [id number] 10/27/2020 09:13:00 AM EDT [facility]) Name Value Range Interpretation Code Description Data Marcella rce(s) Supporting Document(s) Choriogonadotropin.beta subunit [Moles/volume] in Seru m or Plasma Laboratory test result Normal (applies to non-numeric results) [facility]) <content>QUANTITATIVE RESULT QU ALITATIVE INTERPRETATION</content>
<content> </content>
<content><5.0 IU/L NEGATIVE</content>
<content>5.0 - 25.0 IU/L INDETERMINATE</content>
<content>>25.0 IU/L POSITIVE</content>
<content></content> ID Date Data Source [id number] 10/27/2020 09:11:00 AM EDT [facility]) Name Value Range Interpretation Code Description Data Marcella rce(s) Supporting Document(s) Laboratory test finding (navigational concept) 41.0 % 3 8.0-51.0 Normal (applies to non-numeric results) [facility] ([facility]) Laboratory test finding (navigational concept) 138 meq/L 1 36-145 Normal (applies to non-numeric results) [facility] ([facility]) Laboratory test finding (navigational concept) 94 mg/dL 7 0-105 Normal (applies to non-numeric results) [facility] ([facility]) Laboratory test finding (navigational concept) 4.4 meq/L 3 .5-5.1 Normal (applies to non-numeric results) [facility] ([facility]) Laboratory test finding (navigational concept) 101 meq/L 9 8-109 Normal (applies to non-numeric results) [facility] ([facility]) Laboratory test finding (navigational concept) 4.8 mg/dL 4 .5-5.3 Normal (applies to non-numeric results) [facility] ([facility]) Laboratory test finding (navigational concept) 28.0 MM/L 2 3.0-27.0 Above high normal [facility] ([facility]) Laboratory test finding (navigational concept) 0.7 mg/dL 0 .6-1.3 Normal (applies to non-numeric results) [facility] ([facility]) Laboratory test finding (navigational concept) 13 mg/dL 8 -26 Normal (applies to non-numeric results) [facility] ([facility]) ID Date Data Source [id number] 10/27/2020 09:04:00 AM EDT [facility] ([facility]) Name Value Range Interpretation Code Description Data Marcella rce(s) Supporting Document(s) Lipase [Enzymatic activity/volume] in Serum or Plasma 47 U/L 73-393 Below low normal [facility] ([facility]) ID Date Data Source [id number] 10/27/2020 09:04:00 AM EDT [facility] ([facility]) Name Value Range Interpretation Code Description Data Marcella rce(s) Supporting Document(s) Alt/SGPT 25 U/L 12-78 Normal (applies to non-numeric resul ts) [facility] ([facility]) Ast/Sgot 12 U/L 7-37 Normal (applies to non-numeric resul ts) [facility] ([facility]) Alkaline Phosphatase 79 U/L 45-117 Normal (applies to non-num campbell results) [facility] ([facility]) Bilirubin,Total 0.3 mg/dL 0.2-1.0 Normal (applies to non-numeric results) [facility] ([facility]) Bilirubin,Direct Laboratory test result 0.0-0.2 Normal ( applies to non-numeric results) [facility] ([facility]) Albumin 3.9 GM/DL 3.2-5.2 Normal (applies to non-numeric resul ts) [facility] ([facility]) Total Protein 7.3 GM/DL 6.4-8.2 Normal (applies to non-numeric re sults) [facility] ([facility]) Albumin/Globulin Ratio 1.1 1.2-2.2 Below low normal [facility] ([facility]) ID Date Data Source [id number] 10/27/2020 09:04:00 AM EDT [facility] ([facility]) Name Value Range Interpretation Code Description Data Marcella rce(s) Supporting Document(s) Appearance, Urine RFX Laboratory test result Above high no rmal [facility] ([facility]) PH,Urine RFX 7.0 units 5.0-9.0 Normal (applies to non-numeric res ults) [facility] ([facility]) Color, Urine RFX Laboratory test result Normal ( applies to non-numeric results) [facility] ([facility]) Specific [place] Ur Auto RFX 1.026 1.002-1.035 Nor mal (applies to non-numeric results) [facility] ([facility]) Glucose, Urine (Ua) Auto RFX Laboratory test result Normal (applies to non- numeric results) [facility] ([facility]) Protein, Urine Auto RFX Laboratory test result N ormal (applies to non-numeric results) [facility] ([facility]) Urobilinogen, Urine Auto RFX 0.2 mg/dL 0.0-2.0 Nor mal (applies to non-numeric results) [facility] ([facility]) Ketone, Urine Auto RFX Laboratory test result No rmal (applies to non-numeric results) [facility] ([facility]) Bilirubin, Urine Auto RFX Laboratory test result Normal (applies to non- numeric results) [facility] ([facility]) Nitrite, Urine Auto RFX Laboratory test result N ormal (applies to non-numeric results) [facility] ([facility]) Leukocyte Esterase Ur Auto RFX Laboratory test result Normal (applies to non- numeric results) [facility] ([facility]) RBC, Urine Auto RFX 0 /HPF 0-3 Normal (applies to non-nume pepe results) [facility] ([facility]) WBC, Urine Auto RFX 1 /HPF 0-3 Normal (applies to non-nume pepe results) [facility] ([facility]) Blood, Urine Blood RFX Laboratory test result No rmal (applies to non-numeric results) [facility] ([facility]) Squam Epithelial Cell Ur Aurfx 30 /HPF 0-6 N ormal (applies to non-numeric results) [facility] ([facility]) Bacteria, Urine Auto RFX Laboratory test result Normal (applies to non-numeric results) [facility] ([facility]) Mucus, Urine RFX Laboratory test result Normal ( applies to non-numeric results) [facility] ([facility]) Hyaline Cast, Urine Auto RFX 0 /LPF 0-1 Normal (appl ies to non-numeric results) [facility] ([facility]) ID Date Data Source [id number] 10/27/2020 09:04:00 AM EDT [facility] ([facility]) Name Value Range Interpretation Code Description Data Marcella rce(s) Supporting Document(s) Red Blood Count 4.61 10 4.00-5.40 Normal (applies to non-numeric results) [facility] ([facility]) White Blood Count 10.4 10 4.0-10.0 Above high normal [facility] ([facility]) Hematocrit 40.0 % 36.0-47.0 Normal (applies to non-numeric resul ts) [facility] ([facility]) Hemoglobin 12.7 g/dL 12.0-15.5 Normal (applies to non-numeric resul ts) [facility] ([facility]) Mean Corpuscular Volume 86.8 fl 80.0-96.0 Normal ( applies to non-numeric results) [facility] ([facility]) Mean Corpuscular Hemoglobin 27.5 pg 27.0-33.0 Norm al (applies to non-numeric results) [facility] ([facility]) Red Cell Distribution Width 13.3 % 11.5-14.5 Norm al (applies to non-numeric results) [facility] ([facility]) Mean Corpuscular HGB Conc 31.8 g/dL 32.0-36.5 Below low normal [facility] ([facility]) Platelet Count, Automated 297 10 150-450 Normal (applies to non-numeric results) [facility] ([facility]) Neutrophils % 71.7 % 36.0-66.0 Above high normal [facility] ([facility]) Eos % 3.4 % 0.0-3.0 Above high normal [facility] ([facility]) Lymph % 16.8 % 24.0-44.0 Below low normal [facility] ( [facility]) [place] % 6.7 % 2.0-8.0 Normal (applies to non-numeric resul ts) [facility] ([facility]) Nucleated Red Blood Cell % 0.0 % 0-0 Normal (applies to n on-numeric results) [facility] ([facility]) Immature Granulocyte % 0.7 % 0-3.0 Normal (applies to non-n umeric results) [facility] ([facility]) Baso % 0.7 % 0.0-1.0 Normal (applies to non-numeric resul ts) [facility] ([facility]) Neutrophils # 7.4 10 1.5-8.5 Normal (applies to non-numeric re sults) [facility] ([facility]) Eos # 0.4 10 0.0-0.5 Normal (applies to non-numeric resul ts) [facility] ([facility]) Lymph # 1.7 10 1.5-5.0 Normal (applies to non-numeric resul ts) [facility] ([facility]) [place] # 0.7 10 0.0-0.8 Normal (applies to non-numeric resul ts) [facility] ([facility]) Baso # 0.1 10 0.0-0.2 Normal (applies to non-numeric resul ts) [facility] ([facility]) ID Date Data Source [id number] 10/27/2020 09:04:00 AM EDT [facility] ([facility]) Name Value Range Interpretation Code Description Data Marcella rce(s) Supporting Document(s) Lipoprotein lipase [Enzymatic activity/volume] in Serum or Plasm a 47 U/L 73-393 [facility] ([facility], [facility]) ID Date Data Source [id number] 10/27/2020 09:04:00 AM EDT [facility] ([facility], [facility]) Name Value Range Interpretation Code Description Data Marcella rce(s) Supporting Document(s) Ast/Sgot 12 U/L 7-37 [facility] ([facility], [facility]) Alkaline Phosphatase 79 U/L 45-117 [facility] Alt/SGPT 25 U/L 12-78 [facility] ([facility], [facility]) Bilirubin,Direct Laboratory test result 0.0-0.2 [facility] ([facility], [facility]) Bilirubin,Total 0.3 mg/dL 0.2-1.0 [facility] ([facility], [facility]) Total Protein 7.3 GM/DL 6.4-8.2 [facility] ([facility], [facility]) Albumin 3.9 GM/DL 3.2-5.2 [facility] ([facility], [facility]) Albumin/Globulin Ratio 1.1 1.2-2.2 [facility] ([facility], [facility]) ID Date Data Source [id number] 10/27/2020 09:04:00 AM EDT [facility] ([facility], [facility]) Name Value Range Interpretation Code Description Data Marcella rce(s) Supporting Document(s) Laboratory test finding (navigational concept) Laboratory test result [facility] ([facility], [facility]) Laboratory test finding (navigational concept) Laboratory test result [facility] ([facility]) Laboratory test finding (navigational concept) 1.026 1.002-1.035 [facility] ([facility], [facility]) Laboratory test finding (navigational concept) 7.0 units 5.0-9.0 [facility] ([facility], [facility]) Laboratory test finding (navigational concept) Laboratory test result [facility] ([facility], [facility]) Laboratory test finding (navigational concept) Laboratory test result [facility] ([facility], [facility]) Laboratory test finding (navigational concept) 0.2 mg/dL 0.0-2.0 [facility] ([facility]) Laboratory test finding (navigational concept) Laboratory test result [facility] ([facility], [facility]) Laboratory test finding (navigational concept) Laboratory test result [facility] ([facility]) Laboratory test finding (navigational concept) Laboratory test result [facility] ([facility], [facility]) Laboratory test finding (navigational concept) Laboratory test result [facility] ([facility], [facility]) Laboratory test finding (navigational concept) Laboratory test result [facility] ([facility], [facility]) Laboratory test finding (navigational concept) 1 /HPF 0-3 [facility] ([facility], [facility]) Laboratory test finding (navigational concept) Laboratory test result [facility] ([facility], [facility]) Laboratory test finding (navigational concept) 0 /HPF 0-3 [facility] ([facility], [facility]) Laboratory test finding (navigational concept) Laboratory test result [facility] ([facility], [facility]) Laboratory test finding (navigational concept) 30 /HPF 0-6 [facility] ([facility], [facility]) Laboratory test finding (navigational concept) 0 /LPF 0-1 MEDENT ([facility], [facility]) ID Date Data Source [id number] 10/27/2020 09:04:00 AM EDT MED[facility] ([facility], [facility]) Name Value Range Interpretation Code Description Data Marcella rce(s) Supporting Document(s) Red Blood Count 4.61 10 4.00-5.40 MEDENT ([facility], [facility]) White Blood Count 10.4 10 4.0-10.0 MEDENT ([facility], [facility]) Hemoglobin 12.7 g/dL 12.0-15.5 [facility] ([facility]) Hematocrit 40.0 % 36.0-47.0 [facility] ([facility], [facility]) Mean Corpuscular HGB Conc 31.8 g/dL 32.0-36.5 MEDENT ([facility], [facility]) Mean Corpuscular Hemoglobin 27.5 pg 27.0-33.0 MEDENT ([facility], [facility]) Mean Corpuscular Volume 86.8 fl 80.0-96.0 M EDENT ([facility], [facility]) Platelet Count, Automated 297 10 150-450 MEDENT ([facility], [facility]) Red Cell Distribution Width 13.3 % 11.5-14.5 MEDENT ([facility], [facility]) Lymph % 16.8 % 24.0-44.0 MEDENT ([facility], [facility]) Neutrophils % 71.7 % 36.0-66.0 MEDENT ([facility], [facility]) Eos % 3.4 % 0.0-3.0 MEDENT ([facility], [facility]) [place] % 6.7 % 2.0-8.0 MEDENT ([facility], [facility]) Nucleated Red Blood Cell % 0.0 % 0-0 MED ENT ([facility]) Immature Granulocyte % 0.7 % 0-3.0 MEDENT ([facility]) Baso % 0.7 % 0.0-1.0 MEDENT ([facility], [facility]) Lymph # 1.7 10 1.5-5.0 MEDENT ([facility], [facility]) Neutrophils # 7.4 10 1.5-8.5 MEDENT ([facility], [facility]) Eos # 0.4 10 0.0-0.5 MEDENT ([facility], [facility]) [place] # 0.7 10 0.0-0.8 MEDENT ([facility]) Baso # 0.1 10 0.0-0.2 MED[facility] ([facility]) ID Date Data Source [id number] 10/27/2020 08:56:00 AM EDT [facility] ([facility]) Name Value Range Interpretation Code Description Data Marcella rce(s) Supporting Document(s) Chlamydia Dna Amplification Laboratory test result Normal (applies to non- numeric results) [facility] ([facility]) A negative test result does not exclude the possibility of infection because test results may be affected by improper specimen collection, technical error, specimen mix-up, concurrent antibiotic therapy, or the number of organisms in the specimen which may be below the sensitivity of the test. Laboratory test finding (navigational concept) Laboratory test r esult Normal (applies to non-numeric results) MED[facility] ([facility]) A negative test result does not exclude the possibility of infection because test results may be affected by improper specimen collection, technical error, sample mix-up, or because the number of organisms in the sample is below the limit of detection of the test. GC Dna Amplification Laboratory test result Norm al (applies to non-numeric results) [facility] ([facility]) A negative test result does not exclude the possibility of infection because test results may be affected by improper specimen collection, technical error, specimen mix-up, concurrent antibiotic therapy, or the number of organisms in the specimen which may be below the sensitivity of the test. ID Date Data Source [id number] 10/27/2020 08:56:00 AM EDT MED[facility] ([facility]) Name Value Range Interpretation Code Description Data Marcella rce(s) Supporting Document(s) Chlamydia Dna Amplification Laboratory test result MED[facility] ([facility]) Not our patient GC Dna Amplification Laboratory test result MED[facility] ([facility]) Not our patient Trichomonas vaginalis (Amp) Laboratory test result MED[facility] ([facility]) Not our patient ID Date Data Source [id number] 09/02/2020 09:36:00 AM EST [facility] ([facility]) Name Value Range Interpretation Code Description Data Marcella rce(s) Supporting Document(s) Inhouse Urine Laboratory test result [facility] ([facility]) ID Date Data Source [id number] 09/02/2020 09:30:00 AM EST [facility] ([facility]) Name Value Range Interpretation Code Description Data Marcella rce(s) Supporting Document(s) Bacteria identified in Genital specimen by Aerobe cult ure Laboratory test result Normal (applies to non-numeric results) [facility] ([facility]) FULL REPORT IN LAB NOTES ([facility] NORMAL KRZYSZTOF PRESENT ID Date Data Source [id number] 09/02/2020 08:47:00 AM EST [facility] ([facility]) Name Value Range Interpretation Code Description Data Marcella rce(s) Supporting Document(s) Laboratory test finding (navigational concept) Laboratory test result [facility] ([facility]) ID Date Data Source [id number] 09/02/2020 08:47:00 AM EST [facility] ([facility]) Name Value Range Interpretation Code Description Data Marcella rce(s) Supporting Document(s) Chlamydia trachomatis rRNA [Presence] in Unspecified specimen by Probe and target amplification method Laboratory test result Normal (a pplies to non- numeric results) [facility] ([facility]) Neisseria gonorrhoeae rRNA [Presence] in Unspecified specimen by Probe and target amplification method Laboratory test result Normal (a pplies to non- numeric results) [facility] ([facility]) Comment Laboratory test result [facility] ([facility]) The analytical performance characteristi cs of this assay, when used to test SurePath(TM) specimens have been determined by [employer]. The modifications have not been cleared or approved by the FDA. This assay has been validated pursuant to the CLIA regulations and is used for clinical purposes. For additional information, please refer to https://[employer].SDNsquare/faq/THE973 (This link is being provided for informa tion/ educational purposes only.) ID Date Data Source [id number] 09/02/2020 08:47:00 AM EST [facility] ([facility]) Name Value Range Interpretation Code Description Data Marcella rce(s) Supporting Document(s) Human papilloma virus E6+E7 mRNA [Presen ce] in Cervix by Probe and target amplification method Laboratory test result Normal (applies to non-numeric results) [facility]) Methodology: Maintenance Technician 3Rd Shift-Mediated Ampl ification This assay detects E6/E7 viral messenger RNA (mRNA) from 14 high-risk HPV types (16,18,31,33,35,39,45,51,52,56,58,59,66,68). The analytical performance characteristics of this assay have been determined by [employer]. The modifications have not been cleared or approved by the FDA. This assay has been validated pursuant to the CLIA regulations and is used for clinical purposes. For additional information, please refer to http://[employer].SDNsquare/faq/XJP561c5 (This link if provided for information/ educational purposes only.) ID Date Data Source [id number] 09/02/2020 08:47:00 AM EST [facility] ([facility]) Name Value Range Interpretation Code Description Data Marcella rce(s) Supporting Document(s) Service comment Laboratory test result Normal (a pplies to non-numeric results) [facility] ([facility]) Last menstrual period start date Laboratory test result Normal (applies to non-numeric results) [facility] ([facility]) None given Clinical information Laboratory test result Norm al (applies to non-numeric results) [facility] ([facility]) Routine exam Specimen source [Identifier] in Cervical or vaginal smear or scraping by Cyto stain Laboratory test result Normal (applies to non-numeric results) [facility] ([facility]) Cervix, Endocervix Date of previous PAP smear Laboratory test result Normal (applies to non- numeric results) [facility]) None given Date of previous biopsy Laboratory test result N ormal (applies to non-numeric results) [facility] ([facility]) None given General categories [Interpretation] of C ervical or vaginal smear or scraping by Cyto stain Laboratory test result Abnormal (applies to non-numeri c results) [facility] ([facility]) EPITHELIAL CELL ABNORMALITY Statement of adequacy [Interpretation] o f Cervical or vaginal smear or scraping by Cyto stain Laboratory test result Normal (applies to non-nu meric results) [facility]) Satisfactory for evaluation. Endocervical/transformation zone component present. Microscopic observation [Identifier] in Cervix by Cyto stain Laboratory test result Abnormal (applies to non-numeric results) [facility] ([facility]) Atypical Squamous Cells of Undetermined Significance (ASC-US) Microorganism identified in Cervical or vaginal smear or scraping by Cyto stain Laboratory test result Normal (applies to non-numeric results) [facility] ([facility]) Cytology study comment Cervical or vaginal smear or sc raping Cyto stain Laboratory test result Normal (applies to non-numeric results) [facility] ([facility]) This Pap test has been evaluated with [employer] assisted technology. Upper Trimmer who read Cyto stain of Cervical or vaginal smear or scraping Laboratory test result Normal (applies to non-numeric results) [facility] ([facility]) MRS, CT(ASCP) CT screening location: [facility], [address] [place] [address], [place] [address] . Upper Trimmer who read Cyto stain of Cervical or vaginal smear or scraping Laboratory test result Normal (applies to non-numeric results) [facility] ([facility]) Pathologist who read Cyto stain of Cervical or vaginal smear or scraping Laboratory test result Normal (applies to non-numeric results) [facility] ([facility]) Jovani [place] MD, PhD, M.B.A. Board Certified in Anatomic and Clinical Pathology Board Certified in Cytopathology (electronic signature) For questions regarding this report call Anatomic Pathology at [phone] Comment Laboratory test result [facility] ([facility]) EXPLANATORY NOTE: The Pap is a screening test for cervical cancer. It is not a diagnostic test and is subject to false negative and false positive results. It is most reliable when a satisfactory sample, regularly obtained, is submitted with relevant clinical findings and history, and when the Pap result is evaluated along with historic and current clinical information. ID Date Data Source [id number] 09/02/2020 08:47:00 AM EST [facility] ([facility]) Name Value Range Interpretation Code Description Data Marcella rce(s) Supporting Document(s) Service comment Laboratory test result [facility] ([facility]) This order for age-based cervical cancer and STI screening follows ACOG guidelines(PB 168, 140, FFP935). See individual assays for performing site location. Procedure Social History Code Duration Value Status Description Data Source(s ) Smoking 09/02/2020 12:00:00 AM EST Patient has never smoked co mpleted Patient has never smoked [facility] ([facility]) Vital Signs ID Date Data Source UNK Name Value Range Interpretation Code Description Data Source(s) Body weight 216.38 [lb_av] 216.38 [lb_av] [facility] T ([facility]) Heart rate 90 /min 90 /min [facility] ([facility]) Respiratory rate 18 /min 18 /min [facility] ( [facility]) Body temperature 98.9 [degF] 98.9 [degF] [facility]) Oxygen saturation in Arterial blood by Pulse oximetry 98 % 98 % [facility] ([facility]) [place] body weight 130 [lb_av] 130 [lb_av] MED[facility] T ([facility]) Systolic blood pressure 118 mm[Hg] 118 mm[Hg] M EDENT ([facility]) Diastolic blood pressure 70 mm[Hg] 70 mm[Hg] [facility] ([facility]) Body height 66.7 [in_i] 66.7 [in_i] [facility] ([facility]) 5'6.70" Body mass index (BMI) [Ratio] 34.2 kg/m2 34.2 k g/m2 [facility] ([facility]) Body mass index (BMI) [Ratio] 35.5 kg/m2 35.5 k g/m2 [facility] ([facility]) Systolic blood pressure 114 mm[Hg] 114 mm[Hg] M EDENT ([facility]) Diastolic blood pressure 72 mm[Hg] 72 mm[Hg] [facility] ([facility]) Body weight 224.38 [lb_av] 224.38 [lb_av] [facility] T ([facility]) Heart rate 101 /min 101 /min [facility] ([facility]) Respiratory rate 18 /min 18 /min [facility] ( [facility]) Body temperature 98.5 [degF] 98.5 [degF] [facility] ([facility]) Oxygen saturation in Arterial blood by Pulse oximetry 99 % 99 % [facility] ([facility]) [place] body weight 130 [lb_av] 130 [lb_av] [facility] T ([facility]) Body height 66.7 [in_i] 66.7 [in_i] [facility] ([facility]) 5'6.70" Body temperature 96.9 [degF] 96.9 [degF] [facility] ([facility]) Body temperature 98.3 [degF] 98.3 [degF] [facility] ([facility]) Oxygen saturation in Arterial blood by Pulse oximetry 98 % 98 % [facility] ([facility]) [place] body weight 130 [lb_av] 130 [lb_av] MED[facility] T ([facility]) Body mass index (BMI) [Ratio] 36.2 kg/m2 36.2 k g/m2 [facility] ([facility]) Heart rate 105 /min 105 /min [facility] ([facility]) Systolic blood pressure 124 mm[Hg] 124 mm[Hg] M [facility] ([facility]) Diastolic blood pressure 86 mm[Hg] 86 mm[Hg] [facility] ([facility]) Body height 66.7 [in_i] 66.7 [in_i] [facility] ([facility]) 5'6.70" Body weight 229.00 [lb_av] 229.00 [lb_av] MEDEN T ([facility]) Body temperature 97.3 [degF] 97.3 [degF] [facility] ([facility]) Body height 67 [in_i] 67 [in_i] [facility] ([facility]) 5'7" Body weight 228.25 [lb_av] 228.25 [lb_av] MEDEN T ([facility]) Body mass index (BMI) [Ratio] 35.7 kg/m2 35.7 k g/m2 [facility] ([facility]) Body temperature 97.5 [degF] 97.5 [degF] [facility] ([facility]) Body height 67 [in_i] 67 [in_i] [facility] ([facility]) 5'7" Body weight 231.25 [lb_av] 231.25 [lb_av] MEDEN T ([facility]) Body mass index (BMI) [Ratio] 36.2 kg/m2 36.2 k g/m2 [facility] ([facility]) Systolic blood pressure 122 mm[Hg] 122 mm[Hg] M EDENT ([facility]) Diastolic blood pressure 72 mm[Hg] 72 mm[Hg] [facility] ([facility]) Heart rate 128 /min 128 /min [facility] ([facility]) Respiratory rate 18 /min 18 /min [facility] ( [facility]) Body height 66.7 [in_i] 66.7 [in_i] [facility] ([facility]) 5'6.70" Body weight 233.25 [lb_av] 233.25 [lb_av] [facility] T ([facility]) Body mass index (BMI) [Ratio] 36.9 kg/m2 36.9 k g/m2 [facility] ([facility]) Body temperature 98.5 [degF] 98.5 [degF] [facility] ([facility]) Oxygen saturation in Arterial blood by Pulse oximetry 100 % 100 % [facility] ([facility]) [place] body weight 130 [lb_av] 130 [lb_av] [facility] T ([facility]) Heart rate 88 /min 88 /min [facility] ([facility]) Respiratory rate 18 /min 18 /min [facility] ( [facility]) Body temperature 98.4 [degF] 98.4 [degF] [facility] ([facility]) Oxygen saturation in Arterial blood by Pulse oximetry 99 % 99 % [facility] ([facility]) [place] body weight 130 [lb_av] 130 [lb_av] [facility] T ([facility]) Body weight 232.38 [lb_av] 232.38 [lb_av] [facility] T ([facility]) Body mass index (BMI) [Ratio] 36.7 kg/m2 36.7 k g/m2 [facility] ([facility]) Systolic blood pressure 128 mm[Hg] 128 mm[Hg] M [facility] ([facility]) Diastolic blood pressure 78 mm[Hg] 78 mm[Hg] [facility] ([facility]) Body height 66.7 [in_i] 66.7 [in_i] [facility] ([facility]) 5'6.70" Systolic blood pressure 126 mm[Hg] 126 mm[Hg] M [facility] ([facility]) Diastolic blood pressure 84 mm[Hg] 84 mm[Hg] [facility] ([facility]) Body height 66.7 [in_i] 66.7 [in_i] [facility] ([facility]) 5'6.70" Body weight 226.00 [lb_av] 226.00 [lb_av] [facility] T ([facility]) Body mass index (BMI) [Ratio] 35.7 kg/m2 35.7 k g/m2 [facility] ([facility]) Heart rate 99 /min 99 /min [facility] ([facility]) Respiratory rate 18 /min 18 /min [facility] ( [facility]) Body temperature 98.7 [degF] 98.7 [degF] [facility] ([facility]) Oxygen saturation in Arterial blood by Pulse oximetry 97 % 97 % [facility] ([facility]) [place] body weight 130 [lb_av] 130 [lb_av] MED[facility] T ([facility]) Systolic blood pressure 122 mm[Hg] 122 mm[Hg] M [facility] ([facility]) Diastolic blood pressure 82 mm[Hg] 82 mm[Hg] [facility] ([facility]) Respiratory rate 16 /min 16 /min [facility] ( [facility]) Body temperature 98.1 [degF] 98.1 [degF] [facility] ([facility]) Body mass index (BMI) [Ratio] 36.2 kg/m2 36.2 k g/m2 [facility] ([facility]) Heart rate 90 /min 90 /min [facility] ([facility]) Oxygen saturation in Arterial blood by Pulse oximetry 99 % 99 % [facility] ([facility]) [place] body weight 130 [lb_av] 130 [lb_av] MED[facility] T ([facility]) Body height 66.7 [in_i] 66.7 [in_i] [facility] ([facility]) 5'6.70" Body weight 229.00 [lb_av] 229.00 [lb_av] [facility] T ([facility]) Systolic blood pressure 126 mm[Hg] 126 mm[Hg] M [facility] ([facility]) Diastolic blood pressure 70 mm[Hg] 70 mm[Hg] [facility] ([facility]) Body height 66.7 [in_i] 66.7 [in_i] [facility] ([facility]) 5'6.70" Body weight 220.00 [lb_av] 220.00 [lb_av] MED[facility] T ([facility]) Body mass index (BMI) [Ratio] 34.8 kg/m2 34.8 k g/m2 [facility] ([facility]) Heart rate 103 /min 103 /min [facility] ([facility]) Respiratory rate 18 /min 18 /min [facility] ( [facility]) Body temperature 98.3 [degF] 98.3 [degF] [facility] ([facility]) Oxygen saturation in Arterial blood by Pulse oximetry 98 % 98 % [facility] ([facility]) [place] body weight 130 [lb_av] 130 [lb_av] MED[facility] T ([facility]) Patient Treatment Plan of Care Planned Activity Planned Date Details Description Data Source (s) Lorazepam 0.5 MG Oral Tablet 03/15/2021 12:00:00 AM [facility] Guanfacine 1 MG Oral Tablet 03/15/2021 12:00:00 AM [facility] Prazosin 1 MG Oral Capsule 03/01/2021 12:00:00 AM [facility] Lorazepam 0.5 MG Oral Tablet 03/01/2021 12:00:00 AM [facility] vilazodone hydrochloride 40 MG Oral Tablet [Viibryd] 021 12:00:00 AM EDT eCW1 ([facility]) atomoxetine 40 MG Oral Capsule 12/20/2020 12:00:00 AM EDT eCW1 ([facility]) vilazodone hydrochloride 20 MG Oral Tablet [Viibryd] 021 12:00:00 AM EDT eCW1 ([facility]) vilazodone hydrochloride 10 MG Oral Tablet [Viibryd] 021 12:00:00 AM EDT eCW1 ([facility]) atomoxetine 40 MG Oral Capsule 12/20/2020 12:00:00 AM EDT eCW1 ([facility]) vilazodone hydrochloride 20 MG Oral Tablet [Viibryd] 021 12:00:00 AM EDT eCW1 ([facility]) vilazodone hydrochloride 10 MG Oral Tablet [Viibryd] 12:00:00 AM EDT eCW1 ([facility]) aripiprazole 5 MG Oral Tablet 11/29/2020 12:00:00 AM EDT eCW1 ([facility]) atomoxetine 40 MG Oral Capsule [facility]
== END 2021-04-24 15:03 | disposition left against medical advice (07) ==
LOC: M ED 12:30
DX: Z53.21 Procedure and treatment not carried out due to patient leaving prior to being seen by health care provider (principal)

== ENCOUNTER → 2021-11-03 | Outpatient (CLI) | payer OTHER ==
[2021-11-03 15:19] LABS: BASO # 0.1 10^3/uL (0.0-0.2); BASO % 0.6 % (0.0-1.0); EOS # 0.5 10^3/uL (0.0-0.5); EOS % 4.3 % (0.0-3.0); HEMATOCRIT 39.3 % (36.0-47.0); HEMOGLOBIN 12.3 g/dl (12.0-15.5); LYMPH # 2.6 10^3/uL (1.5-5.0); LYMPH % 24.5 % (24.0-44.0); MEAN CORPUSCULAR HGB CONC 31.3 g/dl (32.0-36.5); MEAN CORPUSCULAR VOLUME 86.2 fl (80.0-96.0); MONO # 0.8 10^3/uL (0.0-0.8); NEUTROPHILS # 6.8 10^3/uL (1.5-8.5); NEUTROPHILS % 63.2 % (36.0-66.0); PLATELET COUNT, AUTOMATED 314 10^3/uL (150-450); RED BLOOD COUNT 4.56 10^6/uL (4.00-5.40); WHITE BLOOD COUNT 10.7 10^3/uL (4.0-10.0)
[2021-11-03 15:50] LABS: ALBUMIN 4.2 GM/DL (3.2-5.2); ALT/SGPT 25 U/L (12-78); BILIRUBIN,DIRECT < 0.1 MG/DL (0.0-0.2); BILIRUBIN,TOTAL 0.1 MG/DL (0.2-1.0); BLOOD UREA NITROGEN 12 MG/DL (7-18); CALCIUM LEVEL 9.1 MG/DL (8.5-10.1); CARBON DIOXIDE LEVEL 30 MEQ/L (21-32); CHLORIDE LEVEL 110 MEQ/L (98-107); CREATININE FOR GFR 0.63 MG/DL (0.55-1.30); GLOMERULAR FILTRATION RATE > 60.0 (>60); GLUCOSE, FASTING 80 MG/DL (70-100); LIPASE 87 U/L (73-393); POTASSIUM SERUM 4.2 MEQ/L (3.5-5.1); SODIUM LEVEL 142 MEQ/L (136-145); TOTAL PROTEIN 6.8 GM/DL (6.4-8.2)
== END ==
LOC: M LAB 14:42
PROVIDERS: ATTEND Physician Assistant
DX: R19.7 Diarrhea, unspecified (principal)

== ENCOUNTER → 2021-12-05 | Outpatient (CLI) | payer OTHER | LOC: M WUC 09:49 | DX: M79.671 Pain in right foot (principal) ==

== ENCOUNTER → 2022-11-07 | Outpatient (CLI) | payer BC, OTHER | LOC: M WUC 14:31 | PROVIDERS: ATTEND Physician Assistant | DX: M25.571 Pain in right ankle and joints of right foot (principal) ==

== ENCOUNTER → 2022-11-07 | Outpatient (CLI) | payer BC, OTHER ==
[2022-11-07 17:16] LABS: BASO # 0.1 10^3/uL (0.0-0.2); BASO % 0.7 % (0.0-1.0); EOS # 0.4 10^3/uL (0.0-0.5); EOS % 3.4 % (0.0-3.0); HEMATOCRIT 38.1 % (36.0-47.0); HEMOGLOBIN 11.7 g/dl (12.0-15.5); LYMPH # 2.4 10^3/uL (1.5-5.0); LYMPH % 23.7 % (24.0-44.0); MEAN CORPUSCULAR HEMOGLOBIN 26.4 pg (27.0-33.0); MEAN CORPUSCULAR HGB CONC 30.7 g/dl (32.0-36.5); MONO # 0.8 10^3/uL (0.0-0.8); MONO % 7.8 % (2.0-8.0); NEUTROPHILS # 6.6 10^3/uL (1.5-8.5); NEUTROPHILS % 64.1 % (36.0-66.0); PLATELET COUNT, AUTOMATED 288 10^3/uL (150-450); RED BLOOD COUNT 4.43 10^6/uL (4.00-5.40); WHITE BLOOD COUNT 10.2 10^3/uL (4.0-10.0)
[2022-11-07 17:34] LABS: FERRITIN 6.4 NG/ML (7.3-270.7); PERCENT SATURATION 3.8 % (13.2-45.0)
== END ==
LOC: M WUC 14:28
PROVIDERS: ATTEND Family Medicine
DX: R10.2 Pelvic and perineal pain (principal); M25.571 Pain in right ankle and joints of right foot

== ENCOUNTER → 2023-03-28 | Outpatient (CLI) | payer OTHER | LOC: M RAD 15:53 | PROVIDERS: ATTEND Family Medicine | DX: R10.2 Pelvic and perineal pain (principal); N92.0 Excessive and frequent menstruation with regular cycle ==

== ENCOUNTER 2023-09-13 08:52 | Outpatient (CLI) | payer OTHER ==
[~2023-09-13] VITALS: Ht 170.2 cm; Wt 97.7 kg
[2023-09-13 08:45] VITALS: BP 144/70; O2SAT 100
[2023-09-13] MEDS: IRON SUCROSE 500 MG in NS 250 ML OVER 4 HRS IV ONE (09:22)
[2023-09-13 12:00] VITALS: BP 134/70; O2SAT 99
[2023-09-13 13:24] VITALS: BP 159/90; O2SAT 98
== END 2023-09-13 13:25 | disposition home or self-care (01) ==
LOC: M INFU 08:52
PROVIDERS: ATTEND Physician Assistant
DX: D50.9 Iron deficiency anemia, unspecified (principal); Z88.0 Allergy status to penicillin
CPT/HCPCS: 96365; 96366; J1756

== ENCOUNTER → 2023-10-07 | Outpatient (CLI) | payer OTHER | LOC: M RAD 14:18 | PROVIDERS: ATTEND Physician Assistant | DX: R22.1 Localized swelling, mass and lump, neck (principal) ==

== ENCOUNTER → 2023-10-15 | Outpatient (CLI) | payer OTHER ==
[~2023-10-15] MED LIST changes: +ISOVUE-370 76% 100ML VIAL As Ordered ONE
== END ==
LOC: M RAD 15:58
PROVIDERS: ATTEND Physician Assistant
DX: R22.1 Localized swelling, mass and lump, neck (principal)
CPT/HCPCS: 70491; Q9967

== ENCOUNTER → 2024-03-06 | Outpatient (CLI) | payer OTHER ==
[~2024-03-06] MED LIST changes: +E-Z-GAS II EFFERVESCENT PACKET (SODIUM BICARB./CITRIC ACID/SIMETHICONE) As Ordered ONE; +E-Z-HD 98% w/w 340GM SUSP BTL As Ordered ONE; +E-Z-PAQUE 96% w/w SUSP 176GM BTL As Ordered ONE; -ISOVUE-370 76% 100ML VIAL As Ordered ONE
== END ==
LOC: M RAD 10:37
PROVIDERS: ATTEND Otolaryngology
DX: F45.8 Other somatoform disorders (principal)

== ENCOUNTER → 2024-04-14 | Outpatient (CLI) | payer OTHER ==
[~2024-04-14] MED LIST changes: -E-Z-GAS II EFFERVESCENT PACKET (SODIUM BICARB./CITRIC ACID/SIMETHICONE) As Ordered ONE; -E-Z-HD 98% w/w 340GM SUSP BTL As Ordered ONE; -E-Z-PAQUE 96% w/w SUSP 176GM BTL As Ordered ONE
== END ==
LOC: M RAD 12:00
PROVIDERS: ATTEND Otolaryngology
DX: F45.8 Other somatoform disorders (principal)

== ENCOUNTER → 2024-08-24 | Outpatient (CLI) | payer OTHER | LOC: M RAD 13:54 | PROVIDERS: ATTEND Otolaryngology | DX: R22.1 Localized swelling, mass and lump, neck (principal) ==

== ENCOUNTER → 2024-09-24 | Outpatient (CLI) | payer OTHER ==
[~2024-09-24] MED LIST changes: +PROHANCE 279.3MG/ML 15ML VIAL As Ordered ONE; +PROHANCE 279.3MG/ML 5ML VIAL As Ordered ONE
== END ==
LOC: M RAD 07:07
PROVIDERS: ATTEND Otolaryngology
DX: R07.0 Pain in throat (principal); J01.20 Acute ethmoidal sinusitis, unspecified
CPT/HCPCS: 70543; A9576

== ENCOUNTER → 2024-11-25 | Outpatient (REF) | payer OTHER ==
[~2024-11-25] MED LIST changes: -PROHANCE 279.3MG/ML 15ML VIAL As Ordered ONE; -PROHANCE 279.3MG/ML 5ML VIAL As Ordered ONE
[2024-11-27 14:22] LABS: HPV APTIMA Not Detected (Not Detected)
== END ==
LOC: M SFHCWAGY 12:59
PROVIDERS: ATTEND Obstetrics & Gynecology
DX: Z12.4 Encounter for screening for malignant neoplasm of cervix (principal)
CPT/HCPCS: 87624; G0123